=== PATIENT | female | born 1950 | race Caucasian/White ===

== ENCOUNTER 2017-05-14 20:05 | Emergency (ER) | payer MEDICARE, BC ==
[~2017-05-14 20:05] MED LIST: Acetaminophen/HYDROcodone 325-5 MG Tab PO ONE
[2017-05-14 20:10] VITALS: BP 186/72
[2017-05-14] MEDS ORDERED: methylPREDNISolone Sodium Succinate 125 MG/2 ML SDV IVPUSH STA (21:00)
[2017-05-14] MEDS ORDERED: Take Home: Acetaminophen/HYDROcodone 325-5 MG, 2 Tab Pack PO ONE (21:02)
[2017-05-14] MEDS ORDERED: methylPREDNISolone Sodium Succinate 125 MG/2 ML SDV IM STA (21:03)
--- NOTE | 2017-05-14 21:09 | EDM.PDOC ---
ED HPI GENERAL MEDICAL PROBLEM - General Chief Complaint: Lower Extremity Injury/Pain Stated Complaint: left ankle pain Time Seen by Provider: 05/14/17 20:37 Source of Information: Reports: Patient History Limitations: Reports: No Limitations - History of Present Illness INITIAL COMMENTS - FREE TEXT/NARRATIVE: SHARMILA IS A 66 YO FEMALE WHO PRESENTS TO THE ER TONIGHT WITH COMPLAINTS OF LEFT ANKLE PAIN. STATES SHE WAS AT WORK TODAY AND IT STARTED TO BOTHER HER WITH WEIGHT BEARING. ADMITS SHE ATTEMPTED TO MAKE AN APPOINTMENT IN THE CLINIC THIS AFTERNOON BUT THERE WERE NO APPOINTMENTS AVAILABLE. THE PAIN HAS WORSENED THRU OUT THE DAY. DENIES ANY RECENT TRAUMA. NO HISTORY OF GOUT. STATES IF SHE RESTS HER LEG IT DOESN'T BOTHER MUCH UNLESS SHE RESTS THE OUTER PART OF HER ANKLE ON SOMETHING. THE PAIN IS MOSTLY CONFINED TO THE OUTSIDE OF HER ANKLE. Onset: Today Location: Reports: Lower Extremity, Left Quality: Reports: Ache, Throbbing Improves with: Reports: Immobilization Worsens with: Reports: Movement Associated Symptoms: Reports: No Other Symptoms Left Ankle Pain Score (Numeric/FACES): 8 - Related Data Allergies Allergy/AdvReac Type Severity Reaction Status Date / Time diltiazem HCl [From Cardizem] Allergy Rash Verified 05/14/17 20:11 Latex, Natural Rubber Allergy Itching Verified 05/14/17 20:11 simvastatin [From Zocor] Allergy Nausea Verified 05/14/17 20:11 denosumab [From Prolia] AdvReac Joint Pain Verified 05/14/17 20:11 Home Meds: Home Meds Acetaminophen [Tylenol Arthritis Pain] 650 mg PO Q4H PRN 01/21/14 [History] Cholecalciferol (Vitamin D3) [Vitamin D] 1,000 unit PO DAILY 01/21/14 [History] Dabigatran Etexilate Mesylate [Pradaxa] 75 mg PO DAILY 01/21/14 [History] Digoxin [Digoxin] 250 mcg PO DAILY 01/21/14 [History] Furosemide [Lasix] 80 mg PO DAILY 01/21/14 [History] Insulin Detemir [Levemir] 46 units SUBCUT QAM 01/21/14 [History] Lactobacillus Acidophilus [Probiotic] 1 each PO DAILY 01/21/14 [History] Levothyroxine Sodium [Levothyroxine Sodium] 0.05 mcg PO DAILY 01/21/14 [History] Metoprolol Succinate [Toprol XL] 50 mg PO DAILY 01/21/14 [History] Quinapril HCl [Quinapril HCl] 10 mg PO DAILY 01/21/14 [History] SitaGLIPtin [Januvia] 100 mg PO DAILY 01/21/14 [History] Zinc Gluconate [Zinc] 30 mg PO DAILY 01/21/14 [History] metFORMIN [Glucophage] 1,000 mg PO BIDM 01/21/14 [History] atorvaSTATin [Lipitor] 40 mg PO DAILY 02/18/14 [History] Clopidogrel [Plavix] 75 mg PO DAILY 12/13/15 [History] Isosorbide Mononitrate [Imdur] 30 mg PO BID 06/29/16 [History] Lutein 20 mg PO DAILY 06/29/16 [History] Montelukast Sodium 10 mg PO DAILY 06/29/16 [History] Omeprazole 20 mg PO DAILY 06/29/16 [History] Insulin Detemir [Levemir] 50 units SUBCUT QPM 05/14/17 [History] Past Medical History HEENT History: Reports: Impaired Vision Cardiovascular History: Reports: Heart Failure, High Cholesterol, Hypertension, Stents, Other (See Below) Other Cardiovascular History: ATRIAL ENLARGEMENT Respiratory History: Reports: COPD 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 History: Reports: Chronic Renal 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: Musculoskeletal History: Reports: Arthritis, Back Pain, Chronic, Fibromyalgia Endocrine/Metabolic History: Reports: Diabetes, Type II, Hypothyroidism, Vitamin D Deficiency - Past Surgical History HEENT Surgical History: Reports: Other (See Below) Other HEENT Surgeries/Procedures: TRACHEA SURGERY Cardiovascular Surgical History: Reports: Coronary Artery Stent GI Surgical History: Reports: Cholecystectomy, Colonoscopy, EGD Female Surgical History: Reports: Section Musculoskeletal Surgical History: Reports: Other (See Below) Other Musculoskeletal Surgeries/Procedures:: BACK SURGERY Social & Family History - Tobacco Use Smoking Status *Q: Never Smoker Second Hand Smoke Exposure: No - Caffeine Use Caffeine Use: Reports: Soda - Recreational Drug Use Recreational Drug Use: No Review of Systems - Review of Systems Review Of Systems: ROS reveals no pertinent complaints other than HPI. ED EXAM, GENERAL - Physical Exam Exam: See Below Exam Limited By: No Limitations General Appearance: Alert, No Apparent Distress, Other (SITTING IN WHEEL CHAIR) Extremities: Joint Swelling (MILD SWELLING TO LATERAL MALLEOLUS OF LEFT ANKLE. INCREASED DISCOMFORT WITH INVERSION AND DORSIFLEXION OF THE FOOT. NON TENDER IN DISTAL DIGITS. NO STREAKING NOTED. NO OPEN LESIONS. ), Limited Range of Motion, Increased Warmth Skin Exam: Dry, Intact, Increased Warmth, Other (RIDGING OF NAILS). No: Erythema Course - Vital Signs Last Recorded V/S: Last Vital Signs Temp 97.8 F 05/14/17 20:07 Pulse 71 05/14/17 20:07 Resp 16 05/14/17 20:07 BP 186/72 H 05/14/17 20:07 Pulse Ox 97 05/14/17 20:07 - Orders/Labs/Meds Orders: Active Orders 24 hr Category Date Time Status methylPREDNISolone Sod Succ [Solu-MEDROL] Med 05/14/17 21:03 Stat 125 mg IM NOW STA Labs: Laboratory Tests 05/14/17 05/14/17 Range/Units 20:20 20:20 WBC 12.2 H (5.0-10.0) 10^3/uL RBC 3.89 L (4.00-5.50) 10^6/uL Hgb 9.7 L (12.0-16.0) g/dL Hct 30.7 L (37.0-47.0) % MCV 78.9 L (82.0-94.0) fL MCH 24.9 L (27.0-32.0) pg MCHC 31.6 L (33.0-38.0) g/dL RDW Coeff of Reji 15.2 H (11.0-15.0) % Plt Count 224 (150-400) 10^3/uL Neut % (Auto) 75.7 (35-85) % Lymph % (Auto) 14.6 (10-55) % Summers % (Auto) 6.1 (0-16) % Eos % (Auto) 3.1 (0-5) % Baso % (Auto) 0.5 (0-3) % Neut # (Auto) 9.24 H (1.80-7.00) 10^3/uL Lymph # (Auto) 1.79 (1.00-4.80) 10^3/uL Summers # (Auto) 0.75 (0.00-0.80) 10^3/uL Eos # (Auto) 0.38 (0.00-0.45) 10^3/uL Baso # (Auto) 0.06 10^3/uL Uric Acid 6.1 H (2.6-6.0) mg/dL C-Reactive Protein 0.4 (0.2-0.8) mg/dL Meds: Medications Discontinued Medications Generic Name Dose Route Start Last Admin Trade Name Terrell PRN Reason Stop Dose Admin Hydrocodone Bitart/Acetaminophen 2 packet 05/14/17 21:02 Take Home: Acetaminophen/Hydrocod, 2 Tab Pack PO 05/14/17 21:03 ONETIME ONE Methylprednisolone Sodium Succinate 125 mg 05/14/17 21:00 Solu-Medrol IVPUSH 05/14/17 21:01 NOW STA Departure - Departure Time of Disposition: 21:08 Disposition: Home, Self-Care 01 Condition: Good Clinical Impression: Iron deficiency Gout of left ankle Qualifiers: Gout etiology: idiopathic Chronicity: acute Qualified Code(s): M10.072 - Idiopathic gout, left ankle and foot - Discharge Information Instructions: Low-Purine Diet, Gout, [id number], Iron Deficiency Anemia, Adult, [id number] Referrals: Lico Britt MD [Primary Care Provider] - 1 Day (APPOINTMENT TOMORROW WITH DR BRITT R/O IRON DEFICIENCY AND FOLLOW UP) Forms: ED Department Discharge Additional Instructions: 1) NORCO 5/325 - 1 TABLET EVERY 6 HOURS NEEDED FOR PAIN 2) KEEP APPOINTMENT WITH DR. BRITT AT 8:30 TOMORROW MORNING TO DISCUSS IRON DEFICIENCY 3) IF PAIN WORSENS OR ANY OTHER CONCERNS TONIGHT, PLEASE RETURN TO ER 4) HANDOUTS GIVEN ON GOUT, LOW PURINE DIET AND IRON DEFICIENCY - Problem List & Annotations (1) Gout of left ankle SNOMED Code(s): 400534905 Code(s): M10.9 - GOUT, UNSPECIFIED Status: Acute Current Visit: Yes Qualifiers: Gout etiology: idiopathic Chronicity: acute Qualified Code(s): M10.072 - Idiopathic gout, left ankle and foot (2) Iron deficiency SNOMED Code(s): 62690694 Code(s): E61.1 - IRON DEFICIENCY Status: Acute Current Visit: Yes - Problem List Review Problem List Initiated/Reviewed/Updated: Yes - My Orders Last 24 Hours: My Active Orders 05/14/17 21:03 methylPREDNISolone Sod Succ [Solu-MEDROL] 125 mg IM NOW STA - Assessment/Plan Last 24 Hours: My Active Orders 05/14/17 21:03 methylPREDNISolone Sod Succ [Solu-MEDROL] 125 mg IM NOW STA Plan: URIC ACID WAS ELEVATED. D/T BEING ON BLOOD THINNERS WILL TREAT WITH SOLU MEDROL TONIGHT. CONCERNS OF POSSIBLE IRON DEFICIENCY WELL ADN RECOMMEND KEEPING APPOINTMENT WITH DR. BRITT TO DISCUSS.
== END 2017-05-14 21:15 | disposition home or self-care (01) ==
LOC: CC.ED 20:05
DX: M10.072 Idiopathic gout, left ankle and foot (principal); E61.1 Iron deficiency; M19.90 Unspecified osteoarthritis, unspecified site; I13.0 Hypertensive heart and chronic kidney disease with heart failure and stage 1 through stage 4 chronic kidney disease, or unspecified chronic kidney disease; I50.9 Heart failure, unspecified; N18.9 Chronic kidney disease, unspecified; E11.22 Type 2 diabetes mellitus with diabetic chronic kidney disease; E03.9 Hypothyroidism, unspecified; E78.00 Pure hypercholesterolemia, unspecified; J44.9 Chronic obstructive pulmonary disease, unspecified; Z90.49 Acquired absence of other specified parts of digestive tract; Z91.040 Latex allergy status; Z88.8 Allergy status to other drugs, medicaments and biological substances; Z79.899 Other long term (current) drug therapy; Z79.4 Long term (current) use of insulin
CPT/HCPCS: 36415; 84550; 85025; 86140; 96372; 99283; 99284; A9270; J2930

== ENCOUNTER 2018-07-28 15:55 | Emergency (ER) | payer MEDICARE, BC ==
[2018-07-28] MEDS ORDERED: Aspirin 81 MG Tab.Chew PO ONE (16:12)
--- NOTE | 2018-07-28 16:21 | EDM.PDOC ---
ED HPI GENERAL MEDICAL PROBLEM - General Chief Complaint: Chest Pain Stated Complaint: from clinic - heart Time Seen by Provider: 07/28/18 16:05 Source of Information: Reports: Patient History Limitations: Reports: No Limitations - History of Present Illness INITIAL COMMENTS - FREE TEXT/NARRATIVE: Teagan is a 68 year old history who presents to the ED from the clinic. She was scheduled to see Ryne LEZAMA in the clinic. Her complaint in the clinic was chest pain on left side that radiates down her arm. Given her significant cardiac history, was recommended to be evaluated in the ED. She reports for the past week she has had sinus congestion, cough, and shortness of breath. She reports she has had ongoing chest pain to the left side of her chest. Today she notes that it radiates around her shoulder and somewhat down her arm. SHe reports she has been kind of dizzy as well. Denies any headache, confusion, diaphoresis. She does not elaborate much on her symptoms and is very soft spoken. Onset Date: 07/21/18 Duration: Getting Worse Location: Reports: Chest Quality: Reports: Ache, Sharp Associated Symptoms: Reports: Chest Pain, Cough, cough w sputum, Shortness of Breath, Weakness. Denies: Confusion, Diaphoresis, Fever/Chills, Headaches, Loss of Appetite, Malaise, Nausea/Vomiting, Rash, Seizure, Syncope Middle Chest Pain Score (Numeric/FACES): 4 - Related Data Allergies Allergy/AdvReac Type Severity Reaction Status Date / Time diltiazem HCl [From Cardizem] Allergy Rash Verified 07/28/18 16:18 Latex, Natural Rubber Allergy Itching Verified 07/28/18 16:18 simvastatin [From Zocor] Allergy Nausea Verified 07/28/18 16:18 denosumab [From Prolia] AdvReac Joint Pain Verified 07/28/18 16:18 Home Meds: Home Meds Acetaminophen [Tylenol Arthritis Pain] 650 mg PO Q4H PRN 01/21/14 [History] Cholecalciferol (Vitamin D3) [Vitamin D] 1,000 unit PO DAILY 01/21/14 [History] Dabigatran Etexilate Mesylate [Pradaxa] 75 mg PO DAILY 01/21/14 [History] Digoxin 250 mcg PO DAILY 01/21/14 [History] Furosemide [Lasix] 80 mg PO DAILY 01/21/14 [History] Insulin Detemir [Levemir] 46 units SUBCUT QAM 01/21/14 [History] Lactobacillus Acidophilus [Probiotic] 1 each PO DAILY 01/21/14 [History] Levothyroxine Sodium 50 mcg PO DAILY 01/21/14 [History] Metoprolol Succinate [Toprol XL] 50 mg PO DAILY 01/21/14 [History] Quinapril HCl 10 mg PO DAILY 01/21/14 [History] SitaGLIPtin [Januvia] 100 mg PO DAILY 01/21/14 [History] Zinc Gluconate [Zinc] 30 mg PO DAILY 01/21/14 [History] metFORMIN [Glucophage] 1,000 mg PO BID 01/21/14 [History] atorvaSTATin [Lipitor] 40 mg PO DAILY 02/18/14 [History] Clopidogrel [Plavix] 75 mg PO DAILY 12/13/15 [History] Isosorbide Mononitrate [Imdur] 30 mg PO BID 06/29/16 [History] Lutein 20 mg PO DAILY 06/29/16 [History] Montelukast Sodium 10 mg PO DAILY 06/29/16 [History] Omeprazole 20 mg PO DAILY 06/29/16 [History] Insulin Detemir [Levemir] 50 units SUBCUT QPM 05/14/17 [History] Azithromycin [Zithromax] 250 mg PO DAILY #6 tab 07/28/18 [Rx] predniSONE [Prednisone] 20 mg PO DAILY #5 tablet 07/28/18 [Rx] Past Medical History HEENT History: Reports: Impaired Vision Cardiovascular History: Reports: Heart Failure, High Cholesterol, Hypertension, Stents, Other (See Below) Other Cardiovascular History: ATRIAL ENLARGEMENT Respiratory History: Reports: COPD 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 History: Reports: 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: Musculoskeletal History: Reports: Arthritis, Back Pain, Chronic, Fibromyalgia Endocrine/Metabolic History: Reports: Diabetes, Type II, Hypothyroidism, Vitamin D Deficiency - Past Surgical History HEENT Surgical History: Reports: Other (See Below) Other HEENT Surgeries/Procedures: TRACHEA SURGERY Cardiovascular Surgical History: Reports: Coronary Artery Stent GI Surgical History: Reports: Cholecystectomy, Colonoscopy, EGD Female Surgical History: Reports: Section Musculoskeletal Surgical History: Reports: Other (See Below) Other Musculoskeletal Surgeries/Procedures:: BACK SURGERY Social & Family History - Caffeine Use Caffeine Use: Reports: Soda ED ROS GENERAL - Review of Systems Review Of Systems: ROS reveals no pertinent complaints other than HPI. ED EXAM, GENERAL - Physical Exam Exam: See Below Exam Limited By: No Limitations General Appearance: Alert, WD/WN, No Apparent Distress Eye Exam: Bilateral Eye: EOMI, Normal Fundi, Normal Inspection, PERRL Ears: Normal External Exam, Normal Canal, Hearing Grossly Normal, Normal TMs Nose: Normal Inspection, Normal Mucosa, No Blood Throat/Mouth: Normal Inspection, Normal Lips, Normal Teeth, Normal Gums, Normal Oropharynx, Normal Voice, No Airway Compromise Head: Atraumatic, Normocephalic Neck: Normal Inspection, Supple, Non-Tender, Full Range of Motion Respiratory/Chest: No Respiratory Distress, Lungs Clear, Normal Breath Sounds, No Accessory Muscle Use, Chest Non-Tender Cardiovascular: Normal Peripheral Pulses, Regular Rate, Rhythm, No Edema, No Gallop, No JVD, No Rub Peripheral Pulses: 1+: Dorsalis Pedis (L), Dorsalis Pedis (R) GI/Abdominal: Normal Bowel Sounds, Soft, Non-Tender, No Organomegaly, No Distention, No Abnormal Bruit, No Mass Back Exam: Normal Inspection, Full Range of Motion, NT Extremities: Normal Inspection, Normal Range of Motion, Non-Tender, Normal Capillary Refill, No Pedal Edema Neurological: Alert, Oriented, CN II-XII Intact, Normal Cognition, Normal Gait, Normal Reflexes, No Motor/Sensory Deficits Psychiatric: Flat Affect Skin Exam: Warm, Dry, Intact, Normal Color, No Rash Lymphatic: No Adenopathy Course - Vital Signs Last Recorded V/S: Last Vital Signs Temp 97.6 F 07/28/18 16:30 Pulse 63 07/28/18 16:30 Resp 18 07/28/18 16:30 BP 159/79 H 07/28/18 16:30 Pulse Ox 98 07/28/18 16:30 - Orders/Labs/Meds Labs: Laboratory Tests 07/28/18 07/28/18 07/28/18 Range/Units 16:07 16:07 16:07 WBC 9.1 (5.0-10.0) 10^3/uL RBC 3.82 L (4.00-5.50) 10^6/uL Hgb 10.9 L (12.0-16.0) g/dL Hct 33.2 L (37.0-47.0) % MCV 86.9 (82.0-94.0) fL MCH 28.5 (27.0-32.0) pg MCHC 32.8 L (33.0-38.0) g/dL RDW Coeff of Reji 14.6 (11.0-15.0) % Plt Count 208 (150-400) 10^3/uL Neut % (Auto) 75.8 (35-85) % Lymph % (Auto) 16.2 (10-55) % Mcpherson % (Auto) 5.3 (0-16) % Eos % (Auto) 2.3 (0-5) % Baso % (Auto) 0.4 (0-3) % Neut # (Auto) 6.88 (1.80-7.00) 10^3/uL Lymph # (Auto) 1.47 (1.00-4.80) 10^3/uL Mcpherson # (Auto) 0.48 (0.00-0.80) 10^3/uL Eos # (Auto) 0.21 (0.00-0.45) 10^3/uL Baso # (Auto) 0.04 10^3/uL PT 12.7 H (9.7-12.3) SEC INR 1.24 H (0.92-1.18) APTT 40.4 H (23.2-32.3) SEC Sodium 142 (136-145) mEq/L Potassium 3.7 (3.5-5.0) mEq/L Chloride 105 (98-106) mEq/L Carbon Dioxide 29 (21-32) mmol/L BUN 17 (7-18) mg/dL Creatinine 0.8 (0.6-1.0) mg/dL Est Cr Clr Drug Dosing 63.88 mL/min Estimated GFR (MDRD) > 60 (>=60) mL/min Glucose 98 (75-99) mg/dL Calcium 9.6 (8.4-10.1) mg/dL Total Bilirubin 0.6 (0.0-1.0) mg/dL AST 17 (15-37) U/L ALT 28 (12-78) U/L Alkaline Phosphatase 79 (46-116) U/L Lactate Dehydrogenase 158 (100-190) U/L Creatine Kinase 40 (21-215) U/L Troponin I < 0.017 (0.00-0.06) ng/mL Total Protein 6.7 (6.4-8.2) g/dL Albumin 2.9 L (3.4-5.0) g/dL Meds: Medications Discontinued Medications Generic Name Dose Route Start Last Admin Trade Name Devq PRN Reason Stop Dose Admin Aspirin 324 mg 07/28/18 16:12 07/28/18 16:13 Aspirin PO 07/28/18 16:13 324 mg ONETIME ONE Administration - Re-Assessments/Exams Free Text/Narrative Re-Assessment/Exam: 07/28/18 16:47 Discussed, labs, EKG, and CXR results with patient. Labs all stable. CXR negative for acute processes. Departure - Departure Time of Disposition: 16:48 Disposition: Home, Self-Care 01 Condition: Good Clinical Impression: Pleurisy, Bronchitis - Discharge Information *PRESCRIPTION DRUG MONITORING PROGRAM REVIEWED*: Not Applicable *COPY OF PRESCRIPTION DRUG MONITORING REPORT IN PATIENT JORDY: Not Applicable Prescriptions: Azithromycin [Zithromax] 250 mg PO DAILY #6 tab predniSONE [Prednisone] 20 mg PO DAILY #5 tablet Instructions: Cough, Adult, [id number], Pleurisy Referrals: PCP,Unknown [Primary Care Provider] - Forms: ED Department Discharge Additional Instructions: Azithromycin daily x 5 days Prednisone daily x 5 days Meds can be picked up at [facility] Continue Robitussin as needed for cough Rest and push fluids Follow up with PCP in clinic if symptoms worsen or do not improve Return to ED for any emergent needs
[2018-07-28 16:26] LABS: CHLORIDE,CL 105 mEq/L (98-106); SODIUM,NA 142 mEq/L (136-145)
[2018-07-28 16:37] VITALS: BP 159/79
== END 2018-07-28 16:59 | disposition home or self-care (01) ==
LOC: CC.ED 15:55
DX: J40 Bronchitis, not specified as acute or chronic (principal); R09.1 Pleurisy; I13.0 Hypertensive heart and chronic kidney disease with heart failure and stage 1 through stage 4 chronic kidney disease, or unspecified chronic kidney disease; I50.9 Heart failure, unspecified; N18.9 Chronic kidney disease, unspecified; E11.22 Type 2 diabetes mellitus with diabetic chronic kidney disease; Z91.040 Latex allergy status; Z79.4 Long term (current) use of insulin; Z79.84 Long term (current) use of oral hypoglycemic drugs
CPT/HCPCS: 36415; 71046; 80053; 82550; 83615; 84484; 85025; 85610; 85730; 93005; 99285; A9270; 93010; 99284

== ENCOUNTER 2019-05-09 12:38 | Inpatient (IN) | payer MEDICARE, BC ==
[2019-05-09 13:19] LABS: CHLORIDE,CL 104 mEq/L (98-106); SODIUM,NA 142 mEq/L (136-145)
[2019-05-09] MEDS ORDERED: Sodium Chloride 0.9% 10 ML Syringe IV SCH (14:30)
[2019-05-09] MEDS ORDERED: Temazepam 15 MG Cap PO PRN (17:38)
[2019-05-09] MEDS ORDERED: Docusate Sodium 100 MG Cap PO PRN (17:38)
[2019-05-09] MEDS ORDERED: Morphine 2 MG/ML Syringe IVPUSH PRN (17:38)
[2019-05-09] MEDS ORDERED: Ondansetron 4 MG/2 ML SDV IV PRN (17:38)
[2019-05-09] MEDS ORDERED: Furosemide 40 MG/4 ML VIAL IVPUSH ONE (17:38)
[2019-05-09] MEDS: Enoxaparin 40 MG/0.4 ML Syringe SUBCUT SCH (18:26)
[2019-05-09] MEDS: Albuterol/Ipratropium 3.0-0.5 MG/3 ML Neb Soln NEB SCH ×2 (18:26→19:39)
[2019-05-09] MEDS: Levofloxacin/Dextrose 5%-Water 500 MG in Premix Bag 1 BAG IV SCH (18:27)
[2019-05-09] MEDS: metFORMIN 500 MG Tab PO SCH (19:23)
[2019-05-09] MEDS: Insulin Glargine,Human Rec. Analog 100 Units/ML 3 ML Pen SUBCUT SCH (19:24)
[2019-05-09] MEDS: Isosorbide Mononitrate 30 MG Tab.ER PO SCH (19:24)
[2019-05-09] MEDS: DABIGATRAN ETEXILATE MESYLATE 150 MG PO SCH (20:00)
[2019-05-09] MEDS ORDERED: DABIGATRAN ETEXILATE MESYLATE 150 MG PO SCH (20:00)
[2019-05-10] MEDS: Levothyroxine 50 MCG Tab PO SCH (06:55)
[2019-05-10] MEDS: Pantoprazole 40 MG Tab.CR PO SCH (06:55)
[2019-05-10] MEDS: DABIGATRAN ETEXILATE MESYLATE 150 MG PO SCH ×2 (07:22→19:42)
[2019-05-10 07:23] LABS: CHLORIDE,CL 106 mEq/L (98-106); SODIUM,NA 143 mEq/L (136-145)
[2019-05-10] MEDS: Albuterol/Ipratropium 3.0-0.5 MG/3 ML Neb Soln NEB SCH ×3 (07:23→19:41)
[2019-05-10] MEDS: Metoprolol Succinate 100 MG Tab.ER PO SCH (07:23)
[2019-05-10] MEDS: Folic Acid 1 MG Tab PO SCH (07:24)
[2019-05-10] MEDS: Clopidogrel 75 MG Tab PO SCH (07:24)
[2019-05-10] MEDS: metFORMIN 500 MG Tab PO SCH ×2 (07:24→17:07)
[2019-05-10] MEDS: Cholecalciferol (Vitamin D3) 25 MCG Tab PO SCH (07:24)
[2019-05-10] MEDS: Isosorbide Mononitrate 30 MG Tab.ER PO SCH ×2 (07:24→19:42)
[2019-05-10] MEDS: Furosemide 40 MG Tab PO SCH (07:25)
[2019-05-10] MEDS: Lisinopril 5 MG Tab PO SCH (07:25)
[2019-05-10] MEDS: Montelukast 10 MG Tab PO SCH (07:25)
[2019-05-10] MEDS: atorvaSTATin 20 MG Tab PO SCH (07:26)
[2019-05-10] MEDS: SITAGLIPTIN 100 MG PO SCH (07:26)
[2019-05-10] MEDS ORDERED: DABIGATRAN ETEXILATE MESYLATE 150 MG PO SCH (08:00)
[2019-05-10] MEDS ORDERED: Non-Formulary Medication 1 Each (Lutein [Lutein] 20 MG) PO SCH (08:00)
[2019-05-10] MEDS ORDERED: ZINC GLUCONATE 30 MG PO SCH (08:00)
[2019-05-10] MEDS ORDERED: INSULIN DETEMIR 46 UNIT SUBCUT SCH (08:00)
[2019-05-10] MEDS: Insulin Glargine,Human Rec. Analog 100 Units/ML 3 ML Pen SUBCUT SCH ×2 (08:37→19:42)
--- NOTE | 2019-05-10 09:27 | PCM.PN ---
- General Info Date of Service: 05/10/19 Functional Status: Reports: Tolerating Diet. Denies: New Symptoms - Review of Systems General: Reports: Weakness (generally weak), Fatigue, Malaise HEENT: Reports: Post Nasal Drip, Sinus Congestion, Rhinitis Pulmonary: Reports: Shortness of Breath, Pleuritic Chest Pain, Cough, Sputum Cardiovascular: Reports: Chest Pain. Denies: Lightheadedness Gastrointestinal: Denies: Abdominal Pain, Diarrhea, Nausea, Vomiting 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: Reports: No Symptoms Musculoskeletal: Reports: No Symptoms Skin: Reports: Pallor Neurological: Reports: No Symptoms. Denies: Confusion, Dizziness, Headache, Seizure, Syncope, Weakness, Change in Speech, Gait Disturbance Psychiatric: Reports: No Symptoms - Patient Data Vitals - Most Recent: Last Vital Signs Temp 97.3 F 05/10/19 08:00 Pulse 61 05/10/19 08:00 Resp 16 05/10/19 08:00 BP 152/59 H 05/10/19 08:00 Pulse Ox 96 05/10/19 08:00 Weight - Most Recent: 181 lb Lab Results Last 24 Hours: Laboratory Results - last 24 hr 05/09/19 05/09/19 05/09/19 Range/Units 12:55 12:55 12:55 WBC 9.4 (5.0-10.0) 10^3/uL RBC 3.68 L (4.00-5.50) 10^6/uL Hgb 9.6 L (12.0-16.0) g/dL Hct 30.9 L (37.0-47.0) % MCV 84.0 (82.0-94.0) fL MCH 26.1 L (27.0-32.0) pg MCHC 31.1 L (33.0-38.0) g/dL RDW Coeff of Reji 15.7 H (11.0-15.0) % Plt Count 195 (150-400) 10^3/uL Neut % (Auto) 78.5 (35-85) % Lymph % (Auto) 13.6 (10-55) % Kimball % (Auto) 5.0 (0-16) % Eos % (Auto) 2.5 (0-5) % Baso % (Auto) 0.4 (0-3) % Neut # (Auto) 7.36 H (1.80-7.00) 10^3/uL Lymph # (Auto) 1.27 (1.00-4.80) 10^3/uL Kimball # (Auto) 0.47 (0.00-0.80) 10^3/uL Eos # (Auto) 0.23 (0.00-0.45) 10^3/uL Baso # (Auto) 0.04 10^3/uL PT 11.8 (9.7-12.3) SEC INR 1.16 (0.92-1.18) D-Dimer, Quantitative 0.23 (0.00-0.50) Sodium 142 (136-145) mEq/L Potassium 3.9 (3.5-5.0) mEq/L Chloride 104 (98-106) mEq/L Carbon Dioxide 30 (21-32) mmol/L BUN 10 (7-18) mg/dL Creatinine 0.6 (0.6-1.0) mg/dL Est Cr Clr Drug Dosing TNP Estimated GFR (MDRD) > 60 (>=60) mL/min Glucose 135 H D (75-99) mg/dL POC Glucose (75-105) mg/dl Calcium 10.0 (8.4-10.1) mg/dL Total Bilirubin 2.0 H (0.0-1.0) mg/dL AST 13 L (15-37) U/L ALT 10 L (12-78) U/L Alkaline Phosphatase 79 (46-116) U/L Creatine Kinase 27 (21-215) U/L Troponin I < 0.017 (0.00-0.06) ng/mL C-Reactive Protein 5.2 H (0.2-0.8) mg/dL NT-Pro-B Natriuret Pep 2703 H (0-1000) pg/mL Total Protein 6.8 (6.4-8.2) g/dL Albumin 3.3 L (3.4-5.0) g/dL Lipase 75 (73-393) U/L Urine Color (YELLOW) Urine Appearance (CLEAR) Urine pH (4.5-8.0) Ur Specific [place] (1.003-1.020) Urine Protein (NEGATIVE) mg/dL Urine Glucose (UA) (NEGATIVE) mg/dL Urine Ketones (NEGATIVE) mg/dL Urine Occult Blood (NEGATIVE) Urine Nitrite (NEGATIVE) Urine Bilirubin (NEGATIVE) Urine Urobilinogen (0.2-1.0) EU/dL Ur Leukocyte Esterase (NEGATIVE) Urine RBC (0-5) /HPF Urine WBC (0-5) /HPF Ur Epithelial Cells (NOT SEEN) /HPF 05/09/19 05/09/19 05/09/19 Range/Units 12:55 18:25 20:00 WBC (5.0-10.0) 10^3/uL RBC (4.00-5.50) 10^6/uL Hgb (12.0-16.0) g/dL Hct (37.0-47.0) % MCV (82.0-94.0) fL MCH (27.0-32.0) pg MCHC (33.0-38.0) g/dL RDW Coeff of Reji (11.0-15.0) % Plt Count (150-400) 10^3/uL Neut % (Auto) (35-85) % Lymph % (Auto) (10-55) % Kimball % (Auto) (0-16) % Eos % (Auto) (0-5) % Baso % (Auto) (0-3) % Neut # (Auto) (1.80-7.00) 10^3/uL Lymph # (Auto) (1.00-4.80) 10^3/uL Kimball # (Auto) (0.00-0.80) 10^3/uL Eos # (Auto) (0.00-0.45) 10^3/uL Baso # (Auto) 10^3/uL PT (9.7-12.3) SEC INR (0.92-1.18) D-Dimer, Quantitative (0.00-0.50) Sodium (136-145) mEq/L Potassium (3.5-5.0) mEq/L Chloride (98-106) mEq/L Carbon Dioxide (21-32) mmol/L BUN (7-18) mg/dL Creatinine (0.6-1.0) mg/dL Est Cr Clr Drug Dosing Estimated GFR (MDRD) (>=60) mL/min Glucose (75-99) mg/dL POC Glucose 207 H (75-105) mg/dl Calcium (8.4-10.1) mg/dL Total Bilirubin (0.0-1.0) mg/dL AST (15-37) U/L ALT (12-78) U/L Alkaline Phosphatase (46-116) U/L Creatine Kinase (21-215) U/L Troponin I < 0.017 (0.00-0.06) ng/mL C-Reactive Protein (0.2-0.8) mg/dL NT-Pro-B Natriuret Pep (0-1000) pg/mL Total Protein (6.4-8.2) g/dL Albumin (3.4-5.0) g/dL Lipase (73-393) U/L Urine Color Yellow (YELLOW) Urine Appearance Clear (CLEAR) Urine pH 7.0 (4.5-8.0) Ur Specific [place] 1.010 (1.003-1.020) Urine Protein Negative (NEGATIVE) mg/dL Urine Glucose (UA) Negative (NEGATIVE) mg/dL Urine Ketones Negative (NEGATIVE) mg/dL Urine Occult Blood Negative (NEGATIVE) Urine Nitrite Negative (NEGATIVE) Urine Bilirubin Negative (NEGATIVE) Urine Urobilinogen 0.2 (0.2-1.0) EU/dL Ur Leukocyte Esterase Trace H (NEGATIVE) Urine RBC Not seen (0-5) /HPF Urine WBC 0-5 (0-5) /HPF Ur Epithelial Cells Occasional H (NOT SEEN) /HPF 05/09/19 05/10/19 05/10/19 Range/Units 20:47 07:00 07:00 WBC 6.0 (5.0-10.0) 10^3/uL RBC 3.49 L (4.00-5.50) 10^6/uL Hgb 9.0 L (12.0-16.0) g/dL Hct 29.4 L (37.0-47.0) % MCV 84.2 (82.0-94.0) fL MCH 25.8 L (27.0-32.0) pg MCHC 30.6 L (33.0-38.0) g/dL RDW Coeff of Reji 15.7 H (11.0-15.0) % Plt Count 176 (150-400) 10^3/uL Neut % (Auto) 71.0 (35-85) % Lymph % (Auto) 18.7 (10-55) % Kimball % (Auto) 5.2 (0-16) % Eos % (Auto) 4.4 (0-5) % Baso % (Auto) 0.7 (0-3) % Neut # (Auto) 4.23 (1.80-7.00) 10^3/uL Lymph # (Auto) 1.11 (1.00-4.80) 10^3/uL Kimball # (Auto) 0.31 (0.00-0.80) 10^3/uL Eos # (Auto) 0.26 (0.00-0.45) 10^3/uL Baso # (Auto) 0.04 10^3/uL PT (9.7-12.3) SEC INR (0.92-1.18) D-Dimer, Quantitative (0.00-0.50) Sodium 143 (136-145) mEq/L Potassium 3.7 (3.5-5.0) mEq/L Chloride 106 (98-106) mEq/L Carbon Dioxide 28 (21-32) mmol/L BUN 9 (7-18) mg/dL Creatinine 0.6 (0.6-1.0) mg/dL Est Cr Clr Drug Dosing 85.18 Estimated GFR (MDRD) > 60 (>=60) mL/min Glucose 139 H (75-99) mg/dL POC Glucose 244 H (75-105) mg/dl Calcium 9.4 (8.4-10.1) mg/dL Total Bilirubin (0.0-1.0) mg/dL AST (15-37) U/L ALT (12-78) U/L Alkaline Phosphatase (46-116) U/L Creatine Kinase (21-215) U/L Troponin I (0.00-0.06) ng/mL C-Reactive Protein 5.4 H (0.2-0.8) mg/dL NT-Pro-B Natriuret Pep (0-1000) pg/mL Total Protein (6.4-8.2) g/dL Albumin (3.4-5.0) g/dL Lipase (73-393) U/L Urine Color (YELLOW) Urine Appearance (CLEAR) Urine pH (4.5-8.0) Ur Specific [place] (1.003-1.020) Urine Protein (NEGATIVE) mg/dL Urine Glucose (UA) (NEGATIVE) mg/dL Urine Ketones (NEGATIVE) mg/dL Urine Occult Blood (NEGATIVE) Urine Nitrite (NEGATIVE) Urine Bilirubin (NEGATIVE) Urine Urobilinogen (0.2-1.0) EU/dL Ur Leukocyte Esterase (NEGATIVE) Urine RBC (0-5) /HPF Urine WBC (0-5) /HPF Ur Epithelial Cells (NOT SEEN) /HPF 05/10/19 05/10/19 Range/Units 07:15 07:15 WBC (5.0-10.0) 10^3/uL RBC (4.00-5.50) 10^6/uL Hgb (12.0-16.0) g/dL Hct (37.0-47.0) % MCV (82.0-94.0) fL MCH (27.0-32.0) pg MCHC (33.0-38.0) g/dL RDW Coeff of Reji (11.0-15.0) % Plt Count (150-400) 10^3/uL Neut % (Auto) (35-85) % Lymph % (Auto) (10-55) % Kimball % (Auto) (0-16) % Eos % (Auto) (0-5) % Baso % (Auto) (0-3) % Neut # (Auto) (1.80-7.00) 10^3/uL Lymph # (Auto) (1.00-4.80) 10^3/uL Kimball # (Auto) (0.00-0.80) 10^3/uL Eos # (Auto) (0.00-0.45) 10^3/uL Baso # (Auto) 10^3/uL PT (9.7-12.3) SEC INR (0.92-1.18) D-Dimer, Quantitative (0.00-0.50) Sodium (136-145) mEq/L Potassium (3.5-5.0) mEq/L Chloride (98-106) mEq/L Carbon Dioxide (21-32) mmol/L BUN (7-18) mg/dL Creatinine (0.6-1.0) mg/dL Est Cr Clr Drug Dosing Estimated GFR (MDRD) (>=60) mL/min Glucose (75-99) mg/dL POC Glucose 135 H (75-105) mg/dl Calcium (8.4-10.1) mg/dL Total Bilirubin (0.0-1.0) mg/dL AST (15-37) U/L ALT (12-78) U/L Alkaline Phosphatase (46-116) U/L Creatine Kinase (21-215) U/L Troponin I (0.00-0.06) ng/mL C-Reactive Protein (0.2-0.8) mg/dL NT-Pro-B Natriuret Pep 2015 H (0-1000) pg/mL Total Protein (6.4-8.2) g/dL Albumin (3.4-5.0) g/dL Lipase (73-393) U/L Urine Color (YELLOW) Urine Appearance (CLEAR) Urine pH (4.5-8.0) Ur Specific [place] (1.003-1.020) Urine Protein (NEGATIVE) mg/dL Urine Glucose (UA) (NEGATIVE) mg/dL Urine Ketones (NEGATIVE) mg/dL Urine Occult Blood (NEGATIVE) Urine Nitrite (NEGATIVE) Urine Bilirubin (NEGATIVE) Urine Urobilinogen (0.2-1.0) EU/dL Ur Leukocyte Esterase (NEGATIVE) Urine RBC (0-5) /HPF Urine WBC (0-5) /HPF Ur Epithelial Cells (NOT SEEN) /HPF Med Orders - Current: Current Medications Albuterol/Ipratropium (Duoneb 3.0-0.5 Mg/3 Ml) 3 ml NEB TIDRT [facility] Last Admin: 05/10/19 07:23 Dose: 3 ml Atorvastatin Calcium (Lipitor) 40 mg PO DAILY [facility] Last Admin: 05/10/19 07:26 Dose: 40 mg Cholecalciferol (Vitamin D3) 25 mcg PO DAILY [facility] Last Admin: 05/10/19 07:24 Dose: 25 mcg Clopidogrel Bisulfate (Plavix) 75 mg PO DAILY [facility] Last Admin: 05/10/19 07:24 Dose: 75 mg Digoxin (Lanoxin) 125 mcg PO DAILY@1200 [facility] Docusate Sodium (Colace) 100 mg PO BID PRN PRN Reason: Constipation Enoxaparin Sodium (Lovenox) 40 mg SUBCUT Q24H [facility] Last Admin: 05/09/19 18:26 Dose: 40 mg Folic Acid (Folic Acid) 1 mg PO DAILY [facility] Last Admin: 05/10/19 07:24 Dose: 1 mg Furosemide (Lasix) 40 mg PO DAILY [facility] Last Admin: 05/10/19 07:25 Dose: 40 mg Levofloxacin/Dextrose 500 mg/ (Premix) 100 mls @ 100 mls/hr IV Q24H [facility] Last Admin: 05/09/19 18:27 Dose: 100 mls/hr Insulin Glargine (Lantus Solostar) 50 units SUBCUT QPM [facility] Last Admin: 05/09/19 19:24 Dose: 50 units Insulin Glargine (Lantus Solostar) 46 units SUBCUT QAM [facility] Last Admin: 05/10/19 08:37 Dose: 46 units Isosorbide Mononitrate (Imdur) 30 mg PO BID [facility] Last Admin: 05/10/19 07:24 Dose: 30 mg Levothyroxine Sodium (Synthroid) 50 mcg PO ACBREAKFAST [facility] Last Admin: 05/10/19 06:55 Dose: 50 mcg Lisinopril (Prinivil) 5 mg PO DAILY [facility] Last Admin: 05/10/19 07:25 Dose: 5 mg Metformin HCl (Glucophage) 1,000 mg PO BIDMEALS [facility] Last Admin: 05/10/19 07:24 Dose: 1,000 mg Metoprolol Succinate (Toprol Xl) 100 mg PO DAILY [facility] Last Admin: 05/10/19 07:23 Dose: 100 mg Montelukast Sodium (Singulair) 10 mg PO DAILY [facility] Last Admin: 05/10/19 07:25 Dose: 10 mg Morphine Sulfate (Morphine) 2 mg IVPUSH Q2H PRN PRN Reason: Pain (severe 7-10) Sitagliptin (Januvia ) 100 Mg Tab Own Med 0 mg PO DAILY [facility] Last Admin: 05/10/19 07:26 Dose: 100 mg Dabigatran Etexilate Mesylate (Pradaxa) 150 Mg Tab Own Med 0 mg PO BID [facility] Last Admin: 05/10/19 07:22 Dose: 150 mg Ondansetron HCl (Zofran) 4 mg IV Q6H PRN PRN Reason: Nausea/Vomiting Pantoprazole Sodium (Protonix) 40 mg PO ACBRK [facility] Last Admin: 05/10/19 06:55 Dose: 40 mg Temazepam (Restoril) 15 mg PO BEDTIME PRN PRN Reason: Sleep Discontinued Medications Furosemide (Lasix) 40 mg IVPUSH ONETIME ONE Stop: 05/09/19 17:39 Last Admin: 05/09/19 18:27 Dose: 40 mg Dabigatran Etexilate Mesylate (Pradaxa) 150 Mg Capsule Own Med 0 mg PO DAILY [facility] Non-Formulary Medication (Lutein [Lutein]) 20 mg PO DAILY [facility] Non-Formulary Medication (Zinc Gluconate [Zinc]) 30 mg PO DAILY [facility] Non-Formulary Medication (Dabigatran Etexilate Mesylate [Pradaxa]) 150 mg PO BID [facility] Sodium Chloride (Saline Flush) 10 ml IV ASDIRECTED [facility] - Exam General: Alert, Oriented, Cooperative, No Acute Distress HEENT: Pupils Equal, Pupils Reactive, Mucous Membr. Moist/[place], Other (non pallor conjucta. ) Neck: Supple Lungs: Clear to Auscultation, Normal Respiratory Effort Cardiovascular: Regular Rate, Regular Rhythm, Other (pacemaker) GI/Abdominal Exam: Normal Bowel Sounds, Soft, Non-Tender, No Organomegaly, No Distention, No Abnormal Bruit, No Mass, Pelvis Stable (Female) Exam: Deferred Back Exam: Normal Inspection, Full Range of Motion. No: CVA Tenderness (L), CVA Tenderness (R) Extremities: Normal Inspection, Normal Range of Motion, Non-Tender, Normal Capillary Refill, Pedal Edema (+1 BLE) Peripheral Pulses: 2+: Carotid (L), Carotid (R), Radial (L), Radial (R), Posterior Tibial (L), Posterior Tibial (R), Dorsalis Pedis (L), Dorsalis Pedis ( R) Skin: Warm, Dry, Intact Neurological: No New Focal Deficit Psy/Mental Status: Alert, Depressed, Other (flat affect, soft spoken. Patient family reports patient usually has flat affect, and always complains about health or always something wrong with health complaint per family. ) - Problem List Review Problem List Initiated/Reviewed/Updated: Yes - My Orders Last 24 Hours: My Active Orders 05/09/19 12:55 CULTURE BLOOD [BC] Stat 05/09/19 12:58 CULTURE BLOOD [BC] Stat 05/09/19 16:17 Resuscitation Status Routine 05/09/19 17:38 Patient Status [ADT] Routine Antiembolic Devices [RC] 1000,2200 Cardiac Monitoring [RC] 0800,2000 Notify Provider Vital Signs [RC] .PRN Oxygen Therapy [RC] .PRN RT Aerosol Therapy [RC] 0800,1200,1600,2000 Up With Assistance [RC] .PRN Up to Chair [RC] .PRN Vital Signs [RC] 0000,0400,1200,1600,2000 CULTURE SPUTUM + SMEAR [] Stat Docusate Sodium [Colace] 100 mg PO BID PRN Morphine 2 mg IVPUSH Q2H PRN Ondansetron [Zofran] 4 mg IV Q6H PRN Temazepam [Restoril] 15 mg PO BEDTIME PRN Antiembolic Hose [OM.PC] Per Unit Routine 05/09/19 18:00 Enoxaparin [Lovenox] 40 mg SUBCUT Q24H Levofloxacin/Dextrose 5%-Water [Levaquin in D5W 500 MG/100 ML] 500 mg Premix Bag 1 bag IV Q24H 05/09/19 18:04 Blood Glucose Check, Bedside [] 0730,1130,1700,2100 05/09/19 18:30 metFORMIN [Glucophage] 1,000 mg PO BIDMEALS 05/09/19 20:00 Albuterol/Ipratropium [DuoNeb 3.0-0.5 MG/3 ML] 3 ml NEB TIDRT Dabigatran Etexilate Mesylate [Pradaxa] 0 mg PO BID Insulin Glarg,Human.Rec.Analog [LantUS Solostar] 50 units SUBCUT QPM Isosorbide Mononitrate [Imdur] 30 mg PO BID 05/09/19 Dinner Heart Healthy Diet [DIET] 05/10/19 07:00 Levothyroxine [Synthroid] 50 mcg PO ACBREAKFAST Pantoprazole [ProTONIX] 40 mg PO ACBRK 05/10/19 08:00 Cholecalciferol (Vitamin D3) [Vitamin D3] 25 mcg PO DAILY Clopidogrel [Plavix] 75 mg PO DAILY Folic Acid 1 mg PO DAILY Furosemide [Lasix] 40 mg PO DAILY Insulin Glarg,Human.Rec.Analog [LantUS Solostar] 46 units SUBCUT QAM Lisinopril [Prinivil] 5 mg PO DAILY Metoprolol Succinate [Toprol XL] 100 mg PO DAILY Montelukast [Singulair] 10 mg PO DAILY SitaGLIPtin [Januvia] 0 mg PO DAILY atorvaSTATin [Lipitor] 40 mg PO DAILY 05/10/19 12:00 Digoxin [Lanoxin] 125 mcg PO DAILY@1200 05/11/19 05:00 BASIC METABOLIC PANEL,BMP [CHEM] DAILY C-REACTIVE PROTEIN [CHEM] DAILY CBC WITH AUTO DIFF [HEME] DAILY PRO B-TYPE NATRIUR PEPT,BNPPRO [CHEM] DAILY 05/12/19 05:00 BASIC METABOLIC PANEL,BMP [CHEM] DAILY C-REACTIVE PROTEIN [CHEM] DAILY CBC WITH AUTO DIFF [HEME] DAILY - Plan Plan:: This patient is a 68 year old female that was admitted to the hospital yesterday from the clinic. She was admitted for bilateral lower lobe pneumonia. The patient family reports the patient reports the patient usually complains of about health complaints and she is acting how she normally acts. They reports she is maybe a little more pale than normal, but otherwise acting how she normally acts and feels per family. Family does report the patient yesterday called into work which prompted to think she wasnt feeling well. Yesterday in the clinic the patient said she thinks she just has a sinus infection. The patient this morning reports that she has on changes in the way she feels. I asked her, "so you do not feel any better at all since yesterday morning when I saw you." She then responded, "well, maybe a little better." She reports she is not as short of breath. Also, when I enter the room, she is laying at about 15 degrees in her bed, nearly flat, whereas, on exam yesterday she could not do that very long at all without complaining of being short of breath. Patient reports that she feels generally weak, malaise, and fatigued. Patient reports she continues to have shortness of breath, cough, and chest heaviness in her lungs. Yesterday her labs were wbc 9.0, hgb 9.6, CRP 5.2, BNP 2703. Today, wbc 6.4, hgb 9.0, CRP 5.4, BNP 2015. I have reviewed the patient hgb. She has in the past had hx of anemia. The patient denies any history of vomiting blood, bleeding from rectum, blood in bowels, or any known loss of blood. Her HR is paced. Will continue to monitor hgb. Will recheck another hgb later today to see if any more drop. She is not currently getting fluids. Will evaluate the repeat hgb lab later today. At this time, will continue plan of care with abx, breathing tx, and admit. Her EKG from yesterday was paced.
[2019-05-10] MEDS: Digoxin 125 MCG Tab PO SCH (12:00)
[2019-05-10] MEDS: Levofloxacin/Dextrose 5%-Water 500 MG in Premix Bag 1 BAG IV SCH (17:07)
[2019-05-10] MEDS: Enoxaparin 40 MG/0.4 ML Syringe SUBCUT SCH (17:07)
[2019-05-11] MEDS: Levothyroxine 50 MCG Tab PO SCH (06:05)
[2019-05-11] MEDS: Pantoprazole 40 MG Tab.CR PO SCH (06:05)
[2019-05-11] MEDS: SITAGLIPTIN 100 MG PO SCH (07:27)
[2019-05-11] MEDS: DABIGATRAN ETEXILATE MESYLATE 150 MG PO SCH ×2 (07:28→20:08)
[2019-05-11] MEDS: Folic Acid 1 MG Tab PO SCH (07:30)
[2019-05-11] MEDS: metFORMIN 500 MG Tab PO SCH ×2 (07:30→17:16)
[2019-05-11] MEDS: Isosorbide Mononitrate 30 MG Tab.ER PO SCH ×2 (07:31→20:09)
[2019-05-11] MEDS: atorvaSTATin 20 MG Tab PO SCH (07:31)
[2019-05-11] MEDS: Clopidogrel 75 MG Tab PO SCH (07:31)
[2019-05-11] MEDS: Furosemide 40 MG Tab PO SCH (07:31)
[2019-05-11] MEDS: Montelukast 10 MG Tab PO SCH (07:32)
[2019-05-11] MEDS: Lisinopril 5 MG Tab PO SCH (07:32)
[2019-05-11] MEDS: Metoprolol Succinate 100 MG Tab.ER PO SCH (07:32)
[2019-05-11] MEDS: Albuterol/Ipratropium 3.0-0.5 MG/3 ML Neb Soln NEB SCH ×3 (07:33→20:09)
[2019-05-11] MEDS: Cholecalciferol (Vitamin D3) 25 MCG Tab PO SCH (07:33)
[2019-05-11 07:45] LABS: CHLORIDE,CL 105 mEq/L (98-106); SODIUM,NA 142 mEq/L (136-145)
[2019-05-11] MEDS: Insulin Glargine,Human Rec. Analog 100 Units/ML 3 ML Pen SUBCUT SCH ×2 (08:27→20:10)
--- NOTE | 2019-05-11 09:03 | PCM.PN ---
- General Info Date of Service: 05/11/19 Admission Dx/Problem (Free Text): Bilateral lower lobe pneumonia Functional Status: Reports: Pain Controlled, Tolerating Diet. Denies: Ambulating - Review of Systems General: Reports: Weakness, Fatigue, Malaise. Denies: Fever HEENT: Reports: Sinus Congestion, Rhinitis Pulmonary: Reports: Shortness of Breath, Cough. Denies: Sputum Cardiovascular: Denies: Chest Pain, Edema, Lightheadedness Gastrointestinal: Reports: Decreased Appetite. Denies: Abdominal Pain, Nausea, Vomiting 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: Reports: No Symptoms Musculoskeletal: Reports: No Symptoms Skin: Reports: No Symptoms Neurological: Reports: No Symptoms - Patient Data Vitals - Most Recent: Last Vital Signs Temp 96.5 F 05/11/19 04:00 Pulse 63 05/11/19 07:32 Resp 18 05/11/19 04:00 BP 151/58 H 05/11/19 07:32 Pulse Ox 97 05/11/19 04:00 Weight - Most Recent: 181 lb Lab Results Last 24 Hours: Laboratory Results - last 24 hr 05/10/19 05/10/19 05/10/19 Range/Units 11:29 15:55 17:05 WBC (5.0-10.0) 10^3/uL RBC (4.00-5.50) 10^6/uL Hgb 9.2 L (12.0-16.0) g/dL Hct 30.0 L (37.0-47.0) % MCV (82.0-94.0) fL MCH (27.0-32.0) pg MCHC (33.0-38.0) g/dL RDW Coeff of Reji (11.0-15.0) % Plt Count (150-400) 10^3/uL Neut % (Auto) (35-85) % Lymph % (Auto) (10-55) % [place] % (Auto) (0-16) % Eos % (Auto) (0-5) % Baso % (Auto) (0-3) % Neut # (Auto) (1.80-7.00) 10^3/uL Lymph # (Auto) (1.00-4.80) 10^3/uL [place] # (Auto) (0.00-0.80) 10^3/uL Eos # (Auto) (0.00-0.45) 10^3/uL Baso # (Auto) 10^3/uL Sodium (136-145) mEq/L Potassium (3.5-5.0) mEq/L Chloride (98-106) mEq/L Carbon Dioxide (21-32) mmol/L BUN (7-18) mg/dL Creatinine (0.6-1.0) mg/dL Est Cr Clr Drug Dosing mL/min Estimated GFR (MDRD) (>=60) mL/min Glucose (75-99) mg/dL POC Glucose 169 H 205 H (75-105) mg/dl Calcium (8.4-10.1) mg/dL C-Reactive Protein (0.2-0.8) mg/dL NT-Pro-B Natriuret Pep (0-1000) pg/mL 05/10/19 05/11/19 05/11/19 Range/Units 21:07 06:50 06:50 WBC 5.8 (5.0-10.0) 10^3/uL RBC 3.54 L (4.00-5.50) 10^6/uL Hgb 9.2 L (12.0-16.0) g/dL Hct 29.8 L (37.0-47.0) % MCV 84.2 (82.0-94.0) fL MCH 26.0 L (27.0-32.0) pg MCHC 30.9 L (33.0-38.0) g/dL RDW Coeff of Reji 15.6 H (11.0-15.0) % Plt Count 209 (150-400) 10^3/uL Neut % (Auto) 71.6 (35-85) % Lymph % (Auto) 16.3 (10-55) % [place] % (Auto) 6.4 (0-16) % Eos % (Auto) 5.4 H (0-5) % Baso % (Auto) 0.3 (0-3) % Neut # (Auto) 4.13 (1.80-7.00) 10^3/uL Lymph # (Auto) 0.94 L (1.00-4.80) 10^3/uL [place] # (Auto) 0.37 (0.00-0.80) 10^3/uL Eos # (Auto) 0.31 (0.00-0.45) 10^3/uL Baso # (Auto) 0.02 10^3/uL Sodium 142 (136-145) mEq/L Potassium 3.5 (3.5-5.0) mEq/L Chloride 105 (98-106) mEq/L Carbon Dioxide 29 (21-32) mmol/L BUN 8 (7-18) mg/dL Creatinine 0.6 (0.6-1.0) mg/dL Est Cr Clr Drug Dosing 85.18 mL/min Estimated GFR (MDRD) > 60 (>=60) mL/min Glucose 80 D (75-99) mg/dL POC Glucose 139 H (75-105) mg/dl Calcium 9.7 (8.4-10.1) mg/dL C-Reactive Protein 2.6 H (0.2-0.8) mg/dL NT-Pro-B Natriuret Pep 1601 H (0-1000) pg/mL 05/11/19 Range/Units 07:38 WBC (5.0-10.0) 10^3/uL RBC (4.00-5.50) 10^6/uL Hgb (12.0-16.0) g/dL Hct (37.0-47.0) % MCV (82.0-94.0) fL MCH (27.0-32.0) pg MCHC (33.0-38.0) g/dL RDW Coeff of Reji (11.0-15.0) % Plt Count (150-400) 10^3/uL Neut % (Auto) (35-85) % Lymph % (Auto) (10-55) % [place] % (Auto) (0-16) % Eos % (Auto) (0-5) % Baso % (Auto) (0-3) % Neut # (Auto) (1.80-7.00) 10^3/uL Lymph # (Auto) (1.00-4.80) 10^3/uL [place] # (Auto) (0.00-0.80) 10^3/uL Eos # (Auto) (0.00-0.45) 10^3/uL Baso # (Auto) 10^3/uL Sodium (136-145) mEq/L Potassium (3.5-5.0) mEq/L Chloride (98-106) mEq/L Carbon Dioxide (21-32) mmol/L BUN (7-18) mg/dL Creatinine (0.6-1.0) mg/dL Est Cr Clr Drug Dosing mL/min Estimated GFR (MDRD) (>=60) mL/min Glucose (75-99) mg/dL POC Glucose 76 (75-105) mg/dl Calcium (8.4-10.1) mg/dL C-Reactive Protein (0.2-0.8) mg/dL NT-Pro-B Natriuret Pep (0-1000) pg/mL Anthony Results Last 24 Hours: Microbiology 05/09/19 12:58 Aerobic Blood Culture - Preliminary Blood NO GROWTH AFTER 1 DAY Anaerobic Blood Culture - Preliminary NO GROWTH AFTER 1 DAY 05/09/19 12:55 Aerobic Blood Culture - Preliminary Blood NO GROWTH AFTER 1 DAY Anaerobic Blood Culture - Preliminary NO GROWTH AFTER 1 DAY Med Orders - Current: Current Medications Albuterol/Ipratropium (Duoneb 3.0-0.5 Mg/3 Ml) 3 ml NEB TIDRT [facility] Last Admin: 05/11/19 07:33 Dose: 3 ml Atorvastatin Calcium (Lipitor) 40 mg PO DAILY [facility] Last Admin: 05/11/19 07:31 Dose: 40 mg Cholecalciferol (Vitamin D3) 25 mcg PO DAILY [facility] Last Admin: 05/11/19 07:33 Dose: 25 mcg Clopidogrel Bisulfate (Plavix) 75 mg PO DAILY [facility] Last Admin: 05/11/19 07:31 Dose: 75 mg Digoxin (Lanoxin) 125 mcg PO DAILY@1200 [facility] Last Admin: 05/10/19 12:00 Dose: 125 mcg Docusate Sodium (Colace) 100 mg PO BID PRN PRN Reason: Constipation Enoxaparin Sodium (Lovenox) 40 mg SUBCUT Q24H [facility] Last Admin: 05/10/19 17:07 Dose: 40 mg Folic Acid (Folic Acid) 1 mg PO DAILY [facility] Last Admin: 05/11/19 07:30 Dose: 1 mg Furosemide (Lasix) 40 mg PO DAILY [facility] Last Admin: 05/11/19 07:31 Dose: 40 mg Levofloxacin/Dextrose 500 mg/ (Premix) 100 mls @ 100 mls/hr IV Q24H [facility] Last Admin: 05/10/19 17:07 Dose: 100 mls/hr Insulin Glargine (Lantus Solostar) 50 units SUBCUT QPM [facility] Last Admin: 05/10/19 19:42 Dose: 50 units Insulin Glargine (Lantus Solostar) 46 units SUBCUT QAM [facility] Last Admin: 05/11/19 08:27 Dose: 46 units Isosorbide Mononitrate (Imdur) 30 mg PO BID [facility] Last Admin: 05/11/19 07:31 Dose: 30 mg Levothyroxine Sodium (Synthroid) 50 mcg PO ACBREAKFAST [facility] Last Admin: 05/11/19 06:05 Dose: 50 mcg Lisinopril (Prinivil) 5 mg PO DAILY [facility] Last Admin: 05/11/19 07:32 Dose: 5 mg Metformin HCl (Glucophage) 1,000 mg PO BIDMEALS [facility] Last Admin: 05/11/19 07:30 Dose: 1,000 mg Metoprolol Succinate (Toprol Xl) 100 mg PO DAILY [facility] Last Admin: 05/11/19 07:32 Dose: 100 mg Montelukast Sodium (Singulair) 10 mg PO DAILY [facility] Last Admin: 05/11/19 07:32 Dose: 10 mg Morphine Sulfate (Morphine) 2 mg IVPUSH Q2H PRN PRN Reason: Pain (severe 7-10) Sitagliptin (Januvia ) 100 Mg Tab Own Med 0 mg PO DAILY [facility] Last Admin: 05/11/19 07:27 Dose: 100 mg Dabigatran Etexilate Mesylate (Pradaxa) 150 Mg Tab Own Med 0 mg PO BID [facility] Last Admin: 05/11/19 07:28 Dose: 150 mg Ondansetron HCl (Zofran) 4 mg IV Q6H PRN PRN Reason: Nausea/Vomiting Pantoprazole Sodium (Protonix) 40 mg PO ACBRK [facility] Last Admin: 05/11/19 06:05 Dose: 40 mg Pantoprazole Sodium (Protonix Iv) 40 mg IVPUSH Q24H [facility] Temazepam (Restoril) 15 mg PO BEDTIME PRN PRN Reason: Sleep Last Admin: 05/10/19 21:07 Dose: 15 mg Discontinued Medications Furosemide (Lasix) 40 mg IVPUSH ONETIME ONE Stop: 05/09/19 17:39 Last Admin: 05/09/19 18:27 Dose: 40 mg Dabigatran Etexilate Mesylate (Pradaxa) 150 Mg Capsule Own Med 0 mg PO DAILY [facility] Non-Formulary Medication (Lutein [Lutein]) 20 mg PO DAILY [facility] Non-Formulary Medication (Zinc Gluconate [Zinc]) 30 mg PO DAILY [facility] Non-Formulary Medication (Dabigatran Etexilate Mesylate [Pradaxa]) 150 mg PO BID [facility] Sodium Chloride (Saline Flush) 10 ml IV ASDIRECTED [facility] - Exam General: Alert, Oriented HEENT: Mucous Membr. Moist/[place] Neck: Supple Lungs: [place]ales (LLL) Cardiovascular: Regular Rate, Regular Rhythm GI/Abdominal Exam: Normal Bowel Sounds, Soft, Non-Tender Extremities: Normal Inspection, No Pedal Edema Skin: Warm, Dry Neurological: No New Focal Deficit - Problem List & Annotations (1) Community acquired bilateral lower lobe pneumonia SNOMED Code(s): 823802605 Code(s): J18.1 - LOBAR PNEUMONIA, UNSPECIFIED ORGANISM Status: Acute Priority: High Current Visit: Yes Annotation/Comment:: suspect gram negative bacteria (2) CHF, Congestive heart failure SNOMED Code(s): 99542237 Code(s): I50.9 - HEART FAILURE, UNSPECIFIED Status: Chronic Priority: High Current Visit: Yes - Problem List Review Problem List Initiated/Reviewed/Updated: Yes - My Orders Last 24 Hours: My Active Orders 05/11/19 07:00 FOLIC ACID [CHEM] Routine IRON PNL (FE, TIBC, ANNETTE, %SAT) [REF] Stat VITAMIN B12 [CHEM] Routine 05/11/19 08:32 Consult to Physician [CONS] Routine OCCULT BLOOD SCREEN [OP] Routine 05/11/19 08:33 Notify Provider Consults [RC] ASDIRECTED 05/11/19 08:45 Pantoprazole [ProTONIX IV] 40 mg IVPUSH Q24H - Assessment Assessment:: CAP, suspect gram negative bacteria Acute on chronic systolic heart failure, mild - Plan Plan:: This patient is a 68 year old female that was admitted to the hospital yesterday from the clinic. She was admitted for bilateral lower lobe pneumonia. The patient family reports the patient reports the patient usually complains of about health complaints and she is acting how she normally acts. They reports she is maybe a little more pale than normal, but otherwise acting how she normally acts and feels per family. Family does report the patient yesterday called into work which prompted to think she wasnt feeling well. Yesterday in the clinic the patient said she thinks she just has a sinus infection. The patient this morning reports that she has on changes in the way she feels. I asked her, "so you do not feel any better at all since yesterday morning when I saw you." She then responded, "well, maybe a little better." She reports she is not as short of breath. Also, when I enter the room, she is laying at about 15 degrees in her bed, nearly flat, whereas, on exam yesterday she could not do that very long at all without complaining of being short of breath. Patient reports that she feels generally weak, malaise, and fatigued. Patient reports she continues to have shortness of breath, cough, and chest heaviness in her lungs. Yesterday her labs were wbc 9.0, hgb 9.6, CRP 5.2, BNP 2703. Today, wbc 6.4, hgb 9.0, CRP 5.4, BNP 2015. I have reviewed the patient hgb. She has in the past had hx of anemia. The patient denies any history of vomiting blood, bleeding from rectum, blood in bowels, or any known loss of blood. Her HR is paced. Will continue to monitor hgb. Will recheck another hgb later today to see if any more drop. She is not currently getting fluids. Will evaluate the repeat hgb lab later today. At this time, will continue plan of care with abx, breathing tx, and admit. Her EKG from yesterday was paced. 05-11-2019 Patient admits to feeling mildly better. Is still short of breath. Dry cough. Afebrile. Decreased appetite. WBC is normal at 5.8. Hemoglobin still low at 9.2. Has history of ОЛЬГА, has not taken iron for over a year. States was because her prescription ran out and her hemoglobin was up. Reviewing of her chart shows hemoglobin at 11 in December. Denies any abdominal pain, just no appetite. Electrolytes are normal, ProBNP improved to 1601. CRP 2.6. Will obtain ferritin, B12, Folic acid. Occult x3. Protonix 40 mg IV. Proceed with EGD. Recheck labs in am. Encouraged ambulation
[2019-05-11] MEDS: Pantoprazole 40 MG Vial IVPUSH SCH (09:11)
[2019-05-11] MEDS: Digoxin 125 MCG Tab PO SCH (12:06)
[2019-05-11] MEDS: Enoxaparin 40 MG/0.4 ML Syringe SUBCUT SCH (17:17)
[2019-05-11] MEDS: Levofloxacin/Dextrose 5%-Water 500 MG in Premix Bag 1 BAG IV SCH (17:55)
[2019-05-11] MEDS ORDERED: Bisacodyl 5 MG Tab PO ONE (18:00)
[2019-05-12] MEDS: Levothyroxine 50 MCG Tab PO SCH (06:25)
[2019-05-12 07:34] LABS: CHLORIDE,CL 104 mEq/L (98-106); SODIUM,NA 142 mEq/L (136-145)
[2019-05-12] MEDS: Albuterol/Ipratropium 3.0-0.5 MG/3 ML Neb Soln NEB SCH ×3 (07:45→19:35)
[2019-05-12] MEDS: Furosemide 40 MG Tab PO SCH (07:46)
[2019-05-12] MEDS: Lisinopril 5 MG Tab PO SCH (07:47)
[2019-05-12] MEDS: Cholecalciferol (Vitamin D3) 25 MCG Tab PO SCH (07:47)
[2019-05-12] MEDS: Folic Acid 1 MG Tab PO SCH (07:47)
[2019-05-12] MEDS: Isosorbide Mononitrate 30 MG Tab.ER PO SCH ×2 (07:47→19:35)
[2019-05-12] MEDS: Metoprolol Succinate 100 MG Tab.ER PO SCH (07:48)
[2019-05-12] MEDS: Montelukast 10 MG Tab PO SCH (07:48)
[2019-05-12] MEDS: atorvaSTATin 20 MG Tab PO SCH (07:48)
[2019-05-12] MEDS: metFORMIN 500 MG Tab PO SCH ×2 (07:48→18:27)
[2019-05-12] MEDS: DABIGATRAN ETEXILATE MESYLATE 150 MG PO SCH ×3 (07:49→19:35)
[2019-05-12] MEDS: Pantoprazole 40 MG Vial IVPUSH SCH (07:49)
[2019-05-12] MEDS: SITAGLIPTIN 100 MG PO SCH (07:50)
[2019-05-12] MEDS: Insulin Glargine,Human Rec. Analog 100 Units/ML 3 ML Pen SUBCUT SCH ×2 (07:51→21:33)
[2019-05-12] MEDS: Clopidogrel 75 MG Tab PO SCH (07:52)
[2019-05-12] MEDS ORDERED: Lisinopril 5 MG Tab PO ONE (08:49)
--- NOTE | 2019-05-12 09:24 | PCM.PN ---
- General Info Date of Service: 05/12/19 Admission Dx/Problem (Free Text): Bilateral lower lobe pneumonia Functional Status: Reports: Pain Controlled, Tolerating Diet, Ambulating, Urinating - Review of Systems General: Reports: Malaise. Denies: Fever, Weakness, Fatigue HEENT: Reports: Sinus Congestion, Rhinitis Pulmonary: Reports: Shortness of Breath, Cough. Denies: Sputum Cardiovascular: Denies: Chest Pain, Edema, Lightheadedness Gastrointestinal: Denies: Abdominal Pain, Nausea, Vomiting 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: Reports: No Symptoms Musculoskeletal: Reports: No Symptoms Skin: Reports: No Symptoms Neurological: Reports: No Symptoms - Patient Data Vitals - Most Recent: Last Vital Signs Temp 98.2 F 05/12/19 08:30 Pulse 74 05/12/19 08:30 Resp 18 05/12/19 08:30 BP 168/62 H 05/12/19 08:30 Pulse Ox 99 05/12/19 08:30 Weight - Most Recent: 181 lb Lab Results Last 24 Hours: Laboratory Results - last 24 hr 05/11/19 05/11/19 05/11/19 Range/Units 07:00 07:00 12:05 WBC (5.0-10.0) 10^3/uL RBC (4.00-5.50) 10^6/uL Hgb (12.0-16.0) g/dL Hct (37.0-47.0) % MCV (82.0-94.0) fL MCH (27.0-32.0) pg MCHC (33.0-38.0) g/dL RDW Coeff of Reji (11.0-15.0) % Plt Count (150-400) 10^3/uL Neut % (Auto) (35-85) % Lymph % (Auto) (10-55) % [place] % (Auto) (0-16) % Eos % (Auto) (0-5) % Baso % (Auto) (0-3) % Neut # (Auto) (1.80-7.00) 10^3/uL Lymph # (Auto) (1.00-4.80) 10^3/uL [place] # (Auto) (0.00-0.80) 10^3/uL Eos # (Auto) (0.00-0.45) 10^3/uL Baso # (Auto) 10^3/uL Sodium (136-145) mEq/L Potassium (3.5-5.0) mEq/L Chloride (98-106) mEq/L Carbon Dioxide (21-32) mmol/L BUN (7-18) mg/dL Creatinine (0.6-1.0) mg/dL Est Cr Clr Drug Dosing mL/min Estimated GFR (MDRD) (>=60) mL/min Glucose (75-99) mg/dL POC Glucose 83 (75-105) mg/dl Calcium (8.4-10.1) mg/dL Iron 37 (35-145) ug/dL TIBC 344 (261-478) ug/dL Unsaturated IBC 307 (155-355) ug/dL Transferrin % Sat 10.8 L (20.0-50.0) % Ferritin 18 (11-307) ng/mL C-Reactive Protein (0.2-0.8) mg/dL Vitamin B12 563 (193-986) PG/ML Folate > 20 (>8.6) NG/ML 05/11/19 05/11/19 05/12/19 Range/Units 17:13 20:07 07:00 WBC 6.4 (5.0-10.0) 10^3/uL RBC 3.76 L (4.00-5.50) 10^6/uL Hgb 9.7 L (12.0-16.0) g/dL Hct 31.6 L (37.0-47.0) % MCV 84.0 (82.0-94.0) fL MCH 25.8 L (27.0-32.0) pg MCHC 30.7 L (33.0-38.0) g/dL RDW Coeff of Reji 15.7 H (11.0-15.0) % Plt Count 217 (150-400) 10^3/uL Neut % (Auto) 66.8 (35-85) % Lymph % (Auto) 20.9 (10-55) % [place] % (Auto) 5.7 (0-16) % Eos % (Auto) 6.0 H (0-5) % Baso % (Auto) 0.6 (0-3) % Neut # (Auto) 4.24 (1.80-7.00) 10^3/uL Lymph # (Auto) 1.33 (1.00-4.80) 10^3/uL [place] # (Auto) 0.36 (0.00-0.80) 10^3/uL Eos # (Auto) 0.38 (0.00-0.45) 10^3/uL Baso # (Auto) 0.04 10^3/uL Sodium (136-145) mEq/L Potassium (3.5-5.0) mEq/L Chloride (98-106) mEq/L Carbon Dioxide (21-32) mmol/L BUN (7-18) mg/dL Creatinine (0.6-1.0) mg/dL Est Cr Clr Drug Dosing mL/min Estimated GFR (MDRD) (>=60) mL/min Glucose (75-99) mg/dL POC Glucose 100 128 H (75-105) mg/dl Calcium (8.4-10.1) mg/dL Iron (35-145) ug/dL TIBC (261-478) ug/dL Unsaturated IBC (155-355) ug/dL Transferrin % Sat (20.0-50.0) % Ferritin (11-307) ng/mL C-Reactive Protein (0.2-0.8) mg/dL Vitamin B12 (193-986) PG/ML Folate (>8.6) NG/ML 05/12/19 05/12/19 Range/Units 07:00 07:50 WBC (5.0-10.0) 10^3/uL RBC (4.00-5.50) 10^6/uL Hgb (12.0-16.0) g/dL Hct (37.0-47.0) % MCV (82.0-94.0) fL MCH (27.0-32.0) pg MCHC (33.0-38.0) g/dL RDW Coeff of Reji (11.0-15.0) % Plt Count (150-400) 10^3/uL Neut % (Auto) (35-85) % Lymph % (Auto) (10-55) % [place] % (Auto) (0-16) % Eos % (Auto) (0-5) % Baso % (Auto) (0-3) % Neut # (Auto) (1.80-7.00) 10^3/uL Lymph # (Auto) (1.00-4.80) 10^3/uL [place] # (Auto) (0.00-0.80) 10^3/uL Eos # (Auto) (0.00-0.45) 10^3/uL Baso # (Auto) 10^3/uL Sodium 142 (136-145) mEq/L Potassium 3.7 (3.5-5.0) mEq/L Chloride 104 (98-106) mEq/L Carbon Dioxide 30 (21-32) mmol/L BUN 10 (7-18) mg/dL Creatinine 0.7 (0.6-1.0) mg/dL Est Cr Clr Drug Dosing 73.01 mL/min Estimated GFR (MDRD) > 60 (>=60) mL/min Glucose 81 (75-99) mg/dL POC Glucose 84 (75-105) mg/dl Calcium 9.9 (8.4-10.1) mg/dL Iron (35-145) ug/dL TIBC (261-478) ug/dL Unsaturated IBC (155-355) ug/dL Transferrin % Sat (20.0-50.0) % Ferritin (11-307) ng/mL C-Reactive Protein 1.2 H (0.2-0.8) mg/dL Vitamin B12 (193-986) PG/ML Folate (>8.6) NG/ML Anthony Results Last 24 Hours: Microbiology 05/11/19 09:15 Occult Blood - Final Stool / Feces - Stool, Formed 05/09/19 12:58 Aerobic Blood Culture - Preliminary Blood NO GROWTH AFTER 2 DAYS Anaerobic Blood Culture - Preliminary NO GROWTH AFTER 2 DAYS 05/09/19 12:55 Aerobic Blood Culture - Preliminary Blood NO GROWTH AFTER 2 DAYS Anaerobic Blood Culture - Preliminary NO GROWTH AFTER 2 DAYS Med Orders - Current: Current Medications Albuterol/Ipratropium (Duoneb 3.0-0.5 Mg/3 Ml) 3 ml NEB TIDRT [facility] Last Admin: 05/12/19 07:45 Dose: 3 ml Atorvastatin Calcium (Lipitor) 40 mg PO DAILY [facility] Last Admin: 05/12/19 07:48 Dose: 40 mg Bisacodyl (Dulcolax) 10 mg PO ONETIME ONE Stop: 05/12/19 19:01 Cholecalciferol (Vitamin D3) 25 mcg PO DAILY [facility] Last Admin: 05/12/19 07:47 Dose: 25 mcg Digoxin (Lanoxin) 125 mcg PO DAILY@1200 [facility] Last Admin: 05/11/19 12:06 Dose: 125 mcg Docusate Sodium (Colace) 100 mg PO BID PRN PRN Reason: Constipation Enoxaparin Sodium (Lovenox) 40 mg SUBCUT Q24H [facility] Last Admin: 05/11/19 17:17 Dose: 40 mg Folic Acid (Folic Acid) 1 mg PO DAILY [facility] Last Admin: 05/12/19 07:47 Dose: 1 mg Furosemide (Lasix) 40 mg PO DAILY [facility] Last Admin: 05/12/19 07:46 Dose: 40 mg Levofloxacin/Dextrose 500 mg/ (Premix) 100 mls @ 100 mls/hr IV Q24H [facility] Last Admin: 05/11/19 17:55 Dose: 100 mls/hr Insulin Glargine (Lantus Solostar) 50 units SUBCUT QPM [facility] Last Admin: 05/11/19 20:10 Dose: 50 units Insulin Glargine (Lantus Solostar) 46 units SUBCUT QAM [facility] Last Admin: 05/12/19 07:51 Dose: 23 units Isosorbide Mononitrate (Imdur) 30 mg PO BID [facility] Last Admin: 05/12/19 07:47 Dose: 30 mg Levothyroxine Sodium (Synthroid) 50 mcg PO ACBREAKFAST [facility] Last Admin: 05/12/19 06:25 Dose: 50 mcg Lisinopril (Prinivil) 10 mg PO DAILY [facility] Metformin HCl (Glucophage) 1,000 mg PO BIDMEALS [facility] Last Admin: 05/12/19 07:48 Dose: 1,000 mg Metoprolol Succinate (Toprol Xl) 100 mg PO DAILY [facility] Last Admin: 05/12/19 07:48 Dose: 100 mg Montelukast Sodium (Singulair) 10 mg PO DAILY [facility] Last Admin: 05/12/19 07:48 Dose: 10 mg Morphine Sulfate (Morphine) 2 mg IVPUSH Q2H PRN PRN Reason: Pain (severe 7-10) Sitagliptin (Januvia ) 100 Mg Tab Own Med 0 mg PO DAILY [facility] Last Admin: 05/12/19 07:50 Dose: 100 mg Dabigatran Etexilate Mesylate (Pradaxa) 150 Mg Tab Own Med 0 mg PO BID [facility] Last Admin: 05/12/19 08:33 Dose: Not Given Ondansetron HCl (Zofran) 4 mg IV Q6H PRN PRN Reason: Nausea/Vomiting Pantoprazole Sodium (Protonix Iv) 40 mg IVPUSH Q24H [facility] Last Admin: 05/12/19 07:49 Dose: 40 mg Polyethylene Glycol (Miralax) 238 gm PO ONETIME ONE Stop: 05/12/19 18:01 Temazepam (Restoril) 15 mg PO BEDTIME PRN PRN Reason: Sleep Last Admin: 05/10/19 21:07 Dose: 15 mg Discontinued Medications Bisacodyl (Dulcolax) 10 mg PO ONETIME ONE Stop: 05/11/19 18:01 Last Admin: 05/11/19 17:16 Dose: 10 mg Clopidogrel Bisulfate (Plavix) 75 mg PO DAILY [facility] Last Admin: 05/12/19 07:52 Dose: Not Given Furosemide (Lasix) 40 mg IVPUSH ONETIME ONE Stop: 05/09/19 17:39 Last Admin: 05/09/19 18:27 Dose: 40 mg Lisinopril (Prinivil) 5 mg PO DAILY [facility] Last Admin: 05/12/19 07:47 Dose: 5 mg Lisinopril (Prinivil) 5 mg PO ONETIME ONE Stop: 05/12/19 08:50 Dabigatran Etexilate Mesylate (Pradaxa) 150 Mg Capsule Own Med 0 mg PO DAILY [facility] Non-Formulary Medication (Lutein [Lutein]) 20 mg PO DAILY [facility] Non-Formulary Medication (Zinc Gluconate [Zinc]) 30 mg PO DAILY [facility] Non-Formulary Medication (Dabigatran Etexilate Mesylate [Pradaxa]) 150 mg PO BID [facility] Pantoprazole Sodium (Protonix) 40 mg PO ACBRK [facility] Last Admin: 05/11/19 06:05 Dose: 40 mg Sodium Chloride (Saline Flush) 10 ml IV ASDIRECTED [facility] - Exam General: Alert, Oriented HEENT: Mucous Membr. Moist/[place] Neck: Supple Lungs: Clear to Auscultation, Normal Respiratory Effort Cardiovascular: Regular Rate, Regular Rhythm GI/Abdominal Exam: Normal Bowel Sounds, Soft, Non-Tender Extremities: Normal Inspection, No Pedal Edema Skin: Warm, Dry Neurological: No New Focal Deficit - Problem List & Annotations (1) Community acquired bilateral lower lobe pneumonia SNOMED Code(s): 821492578 Code(s): J18.1 - LOBAR PNEUMONIA, UNSPECIFIED ORGANISM Status: Acute Priority: High Current Visit: Yes Annotation/Comment:: suspect gram negative bacteria (2) CHF, Congestive heart failure SNOMED Code(s): 08502201 Code(s): I50.9 - HEART FAILURE, UNSPECIFIED Status: Chronic Priority: High Current Visit: Yes - Problem List Review Problem List Initiated/Reviewed/Updated: Yes - My Orders Last 24 Hours: My Active Orders 05/11/19 08:32 Consult to Physician [CONS] Routine 05/11/19 08:45 Pantoprazole [ProTONIX IV] 40 mg IVPUSH Q24H 05/12/19 18:00 Polyethylene Glycol 3350 [MiraLAX] 238 gm PO ONETIME ONE 05/12/19 19:00 Bisacodyl [Dulcolax] 10 mg PO ONETIME ONE 05/13/19 08:00 Lisinopril [Prinivil] 10 mg PO DAILY - Assessment Assessment:: CAP, suspect gram negative bacteria Acute on chronic systolic heart failure, mild - Plan Plan:: This patient is a 68 year old female that was admitted to the hospital yesterday from the clinic. She was admitted for bilateral lower lobe pneumonia. The patient family reports the patient reports the patient usually complains of about health complaints and she is acting how she normally acts. They reports she is maybe a little more pale than normal, but otherwise acting how she normally acts and feels per family. Family does report the patient yesterday called into work which prompted to think she wasnt feeling well. Yesterday in the clinic the patient said she thinks she just has a sinus infection. The patient this morning reports that she has on changes in the way she feels. I asked her, "so you do not feel any better at all since yesterday morning when I saw you." She then responded, "well, maybe a little better." She reports she is not as short of breath. Also, when I enter the room, she is laying at about 15 degrees in her bed, nearly flat, whereas, on exam yesterday she could not do that very long at all without complaining of being short of breath. Patient reports that she feels generally weak, malaise, and fatigued. Patient reports she continues to have shortness of breath, cough, and chest heaviness in her lungs. Yesterday her labs were wbc 9.0, hgb 9.6, CRP 5.2, BNP 2703. Today, wbc 6.4, hgb 9.0, CRP 5.4, BNP 2015. I have reviewed the patient hgb. She has in the past had hx of anemia. The patient denies any history of vomiting blood, bleeding from rectum, blood in bowels, or any known loss of blood. Her HR is paced. Will continue to monitor hgb. Will recheck another hgb later today to see if any more drop. She is not currently getting fluids. Will evaluate the repeat hgb lab later today. At this time, will continue plan of care with abx, breathing tx, and admit. Her EKG from yesterday was paced. 05-11-2019 Patient admits to feeling mildly better. Is still short of breath. Dry cough. Afebrile. Decreased appetite. WBC is normal at 5.8. Hemoglobin still low at 9.2. Has history of ОЛЬГА, has not taken iron for over a year. States was because her prescription ran out and her hemoglobin was up. Reviewing of her chart shows hemoglobin at 11 in December. Denies any abdominal pain, just no appetite. Electrolytes are normal, ProBNP improved to 1601. CRP 2.6. Will obtain ferritin, B12, Folic acid. Occult x3. Protonix 40 mg IV. Proceed with EGD. Recheck labs in am. Encouraged ambulation 05-12-2019 Patient is sitting up, resting comfortably, looking better today. Does still short of breath with exertion. Dry cough. Afebrile. Blood pressure has been systolically high, today 168/62. Labs stable today. WBC 6.4, hemoglobin 9.7. Electrolytes normal. Ferritin low normal at 18. B12 and folic acid levels normal. Will continue clear liquids for prep for EGD/colon tomorrow. Will stop Plavix as also on Pradaxa. Will increase Lisinopril to 10 mg daily. Continue to follow
[2019-05-12] MEDS: Digoxin 125 MCG Tab PO SCH (12:17)
[2019-05-12] MEDS ORDERED: Polyethylene Glycol 3350 Powder 238 GM Bot PO ONE (18:00)
[2019-05-12] MEDS: Enoxaparin 40 MG/0.4 ML Syringe SUBCUT SCH (18:27)
[2019-05-12] MEDS: Levofloxacin/Dextrose 5%-Water 500 MG in Premix Bag 1 BAG IV SCH (18:27)
[2019-05-12] MEDS ORDERED: Bisacodyl 5 MG Tab PO ONE (19:00)
[2019-05-13] MEDS: Levothyroxine 50 MCG Tab PO SCH (06:11)
[2019-05-13] MEDS: Albuterol/Ipratropium 3.0-0.5 MG/3 ML Neb Soln NEB SCH (07:36)
[2019-05-13] MEDS: Isosorbide Mononitrate 30 MG Tab.ER PO SCH (07:37)
[2019-05-13] MEDS: Metoprolol Succinate 100 MG Tab.ER PO SCH (07:37)
[2019-05-13] MEDS ORDERED: Lisinopril 5 MG Tab PO SCH (08:00)
[2019-05-13 09:13] LABS: CHLORIDE,CL 106 mEq/L (98-106); SODIUM,NA 142 mEq/L (136-145)
[2019-05-13] MEDS ORDERED: Lactated Ringers 1,000 ML IV SCH (09:30)
[2019-05-13 12:53] VITALS: BP 128/48
[2019-05-13] MEDS: atorvaSTATin 20 MG Tab PO SCH (14:00)
[2019-05-13] MEDS: Folic Acid 1 MG Tab PO SCH (14:00)
[2019-05-13] MEDS: Cholecalciferol (Vitamin D3) 25 MCG Tab PO SCH (14:01)
[2019-05-13] MEDS: Digoxin 125 MCG Tab PO SCH (14:01)
[2019-05-13] MEDS: Montelukast 10 MG Tab PO SCH (14:02)
[2019-05-13] MEDS: Furosemide 40 MG Tab PO SCH (14:02)
[2019-05-13 14:04] VITALS: PULSE 72
--- NOTE | 2019-05-13 14:16 | OR ---
DATE OF OPERATION: 05/13/2019 PREOPERATIVE DIAGNOSIS: IRON-DEFICIENCY ANEMIA. POSTOPERATIVE DIAGNOSIS: IRON-DEFICIENCY ANEMIA. SURGEON: Jonnathan Branch MD PROCEDURE: 1. ESOPHAGOGASTRODUODENOSCOPY WITH BIOPSY X2, KASSY. 2. FULL-LENGTH COLONOSCOPY WITH BIOPSY X1. ANESTHESIA: Conscious sedation with continuous O2 saturation monitoring and nurse assist. A total of 75 mg of Demerol and 4 mg of Versed given IV. The patient's saturations remained above 90% the entire time. FINDINGS: 1. Full-length EGD. 2. Minimal antral gastritis. 3. Small hiatal hernia without esophagitis. 4. Full-length colonoscopy. 5. Mild sigmoid diverticulosis. 6. Small submucosal lipoma, ascending colon. RECOMMENDATIONS: Ongoing medical followup for the patient's anemia. INDICATIONS: The patient is in the hospital for an unrelated concern. She is found to be iron deficient with a hemoglobin around 9.5, elected to proceed with upper and lower endoscopy. DESCRIPTION OF PROCEDURE: The patient was prepped and draped, placed in the left lateral decubitus position. A lubricated Olympus gastroscope was inserted over a bit, advanced to cricopharyngeus area, and easily intubated into the esophagus. The esophageal lining was benign in its entire course. The Z-line was crisp around 37 cm. A small hernia was present with some GERD, but no distal esophagitis, stricturing, ulceration, or Smith's changes. The scope was advanced into the stomach through the pylorus and into the second portion of the duodenum. This and the duodenal bulb were unremarkable. The scope was brought back into the stomach and retroflexed. The upper fundus and cardia were benign. Upon straightening, there may have been some very mild inflammation of the distal antrum. Two biopsies were taken along with the CLOtest. Air was then suctioned from the stomach and the scope removed without complication. A lubricated Olympus colonoscope was then inserted and easily advanced to the cecum and directly visualized the ileocecal valve and appendiceal orifice. The bowel prep was excellent. Upon withdrawal of the scope, the cecum was benign. In the mid ascending colon, patient had a small submucosal lipoma, biopsy for verification. Throughout the rest of the colon, I found no other polyps, mass, ulceration, or bleeding sites. No vascular abnormalities or signs of colitis. The patient does have some mild diverticular disease in the sigmoid, but very minimal. Rectosigmoid junction was benign. The rectal vault was unremarkable. Retroflexion showed no perianal lesions. Air was suctioned. Scope removed without complication. MABEL /[id number]
--- NOTE | 2019-05-13 17:21 | PCM.DCSUM1 ---
Discharge Summary - Hospital Course Free Text/Narrative:: Patient presented to clinic with complaints of increased sinus congestion, shortness of breath and chest congestion. Was afebrile. WBC was normal. Hemoglobin 9.6. ProBNP elevated at 2703. Chest xray shows bilateral lower lobe infiltrates. Admitted and started on IV antibiotics, nebs and IV Lasix. Diagnosis: Stroke: No Modified Nuckolls Scale: No Symptoms at All Modified Kayla Scale Score: 0 - Discharge Data Discharge Date: 05/13/19 Discharge Disposition: Home, Self-Care 01 Condition: Good - Discharge Diagnosis/Problem(s) (1) Community acquired bilateral lower lobe pneumonia SNOMED Code(s): 440420116 ICD Code: J18.1 - LOBAR PNEUMONIA, UNSPECIFIED ORGANISM Status: Acute Priority: High Problem Details: suspect gram negative bacteria (2) CHF, Congestive heart failure SNOMED Code(s): 16275509 ICD Code: I50.9 - HEART FAILURE, UNSPECIFIED Status: Chronic Priority: High - Patient Summary/Data Consults: Consultations 05/11/19 08:32 Consult to Physician [CONS] Routine 05/11/19 14:26 Consult to Physician [CONS Hospital Course: Patient feeling better today. Was admitted for bilateral pneumonia. Cough is minimal, remains nonproductive throughout stay. Afebrile. Does admit to mild shortness of breath yet with exertion. Lung sounds are clear. WBC has remained stable through stay, today 6.4. Hemoglobin was 9.6 on admit, dropped to 9. History of ОЛЬГА, had stopped taking iron over a year ago. Occult blood screens x3 negative. Ferritin low side of normal at 18. B12 and folic acid normal. Due to concerns with anemia, EGD and colonoscopy done this am. Negative for active bleeding concerns. Will discharge home on Levaquin. Restart iron. Follow up with Ryne in one week. - Patient Instructions Diet: Diabetic Diet Activity: As Tolerated - Discharge Plan *PRESCRIPTION DRUG MONITORING PROGRAM REVIEWED*: No *COPY OF PRESCRIPTION DRUG MONITORING REPORT IN PATIENT JORDY: No Prescriptions/Med Rec: Ferrous Sulfate 325 mg PO DAILY #30 tablet Levofloxacin [Levaquin] 500 mg PO DAILY #7 tablet Home Medications: Home Meds Acetaminophen [Tylenol Arthritis Pain] 650 mg PO Q4H PRN 01/21/14 [History] Cholecalciferol (Vitamin D3) [Vitamin D3] 1,000 unit PO DAILY 01/21/14 [History] Dabigatran Etexilate Mesylate [Pradaxa] 150 mg PO BID 01/21/14 [History] Digoxin 125 mcg PO DAILY 01/21/14 [History] Furosemide [Lasix] 40 mg PO DAILY 01/21/14 [History] Insulin Detemir [Levemir] 46 units SUBCUT QAM 01/21/14 [History] Lactobacillus Acidophilus [Probiotic] 1 each PO DAILY 01/21/14 [History] Levothyroxine Sodium 50 mcg PO DAILY 01/21/14 [History] Metoprolol Succinate [Toprol XL] 100 mg PO DAILY 01/21/14 [History] Quinapril HCl 10 mg PO DAILY 01/21/14 [History] SitaGLIPtin [Januvia] 100 mg PO DAILY 01/21/14 [History] Zinc Gluconate [Zinc] 30 mg PO DAILY 01/21/14 [History] metFORMIN [Glucophage] 1,000 mg PO BID 01/21/14 [History] atorvaSTATin [Lipitor] 40 mg PO DAILY 02/18/14 [History] Clopidogrel [Plavix] 75 mg PO DAILY 12/13/15 [History] Isosorbide Mononitrate [Imdur] 30 mg PO BID 06/29/16 [History] Lutein 20 mg PO DAILY 06/29/16 [History] Montelukast Sodium 10 mg PO DAILY 06/29/16 [History] Omeprazole 20 mg PO DAILY 06/29/16 [History] Insulin Detemir [Levemir] 50 units SUBCUT QPM 05/14/17 [History] Ferrous Sulfate 325 mg PO DAILY #30 tablet 05/13/19 [Rx] Levofloxacin [Levaquin] 500 mg PO DAILY #7 tablet 05/13/19 [Rx] Patient Handouts: Community-Acquired Pneumonia, Adult Referrals: Praveen Ring PA-C [Physician Fashion Show Director] - (Recheck with Ryne in one week) - Discharge Summary/Plan Comment DC Time >30 min.: No - General Info Date of Service: 05/13/19 Admission Dx/Problem (Free Text: Bilateral Lobe Lobe pneumonia, suspect gram negative bacteria. Functional Status: Reports: Pain Controlled, Tolerating Diet, Ambulating - Review of Systems General: Reports: Weakness, Fatigue, Malaise. Denies: Fever HEENT: Denies: Sinus Congestion, Sore Throat Pulmonary: Reports: Shortness of Breath, Cough. Denies: Wheezing Cardiovascular: Denies: Chest Pain, Edema, Lightheadedness Gastrointestinal: Denies: Abdominal Pain, Nausea, Vomiting 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: Reports: No Symptoms Musculoskeletal: Reports: No Symptoms Skin: Reports: No Symptoms Neurological: Reports: No Symptoms - Patient Data Vitals - Most Recent: Last Vital Signs Temp 96.6 F 05/13/19 12:40 Pulse 72 05/13/19 14:01 Resp 16 05/13/19 12:40 BP 128/48 L 05/13/19 12:40 Pulse Ox 94 L 05/13/19 12:40 Weight - Most Recent: 181 lb Lab Results - Last 24 hrs: Laboratory Results - last 24 hr 05/12/19 05/12/19 05/13/19 Range/Units 17:43 21:28 08:26 WBC (5.0-10.0) 10^3/uL RBC (4.00-5.50) 10^6/uL Hgb (12.0-16.0) g/dL Hct (37.0-47.0) % MCV (82.0-94.0) fL MCH (27.0-32.0) pg MCHC (33.0-38.0) g/dL RDW Coeff of Reji (11.0-15.0) % Plt Count (150-400) 10^3/uL Neut % (Auto) (35-85) % Lymph % (Auto) (10-55) % [place] % (Auto) (0-16) % Eos % (Auto) (0-5) % Baso % (Auto) (0-3) % Neut # (Auto) (1.80-7.00) 10^3/uL Lymph # (Auto) (1.00-4.80) 10^3/uL [place] # (Auto) (0.00-0.80) 10^3/uL Eos # (Auto) (0.00-0.45) 10^3/uL Baso # (Auto) 10^3/uL Sodium (136-145) mEq/L Potassium (3.5-5.0) mEq/L Chloride (98-106) mEq/L Carbon Dioxide (21-32) mmol/L BUN (7-18) mg/dL Creatinine (0.6-1.0) mg/dL Est Cr Clr Drug Dosing mL/min Estimated GFR (MDRD) (>=60) mL/min Glucose (75-99) mg/dL POC Glucose 92 164 H 145 H (75-105) mg/dl Calcium (8.4-10.1) mg/dL 05/13/19 05/13/19 05/13/19 Range/Units 09:00 09:00 12:50 WBC 5.7 (5.0-10.0) 10^3/uL RBC 3.74 L (4.00-5.50) 10^6/uL Hgb 9.6 L (12.0-16.0) g/dL Hct 31.1 L (37.0-47.0) % MCV 83.2 (82.0-94.0) fL MCH 25.7 L (27.0-32.0) pg MCHC 30.9 L (33.0-38.0) g/dL RDW Coeff of Reji 15.9 H (11.0-15.0) % Plt Count 198 (150-400) 10^3/uL Neut % (Auto) 70.5 (35-85) % Lymph % (Auto) 17.1 (10-55) % [place] % (Auto) 6.2 (0-16) % Eos % (Auto) 5.5 H (0-5) % Baso % (Auto) 0.7 (0-3) % Neut # (Auto) 4.01 (1.80-7.00) 10^3/uL Lymph # (Auto) 0.97 L (1.00-4.80) 10^3/uL [place] # (Auto) 0.35 (0.00-0.80) 10^3/uL Eos # (Auto) 0.31 (0.00-0.45) 10^3/uL Baso # (Auto) 0.04 10^3/uL Sodium 142 (136-145) mEq/L Potassium 3.9 (3.5-5.0) mEq/L Chloride 106 (98-106) mEq/L Carbon Dioxide 27 (21-32) mmol/L BUN 6 L (7-18) mg/dL Creatinine 0.6 (0.6-1.0) mg/dL Est Cr Clr Drug Dosing 85.18 mL/min Estimated GFR (MDRD) > 60 (>=60) mL/min Glucose 142 H D (75-99) mg/dL POC Glucose 143 H (75-105) mg/dl Calcium 10.1 (8.4-10.1) mg/dL YOSEF Results - Last 24 hrs: Microbiology 05/09/19 12:58 Aerobic Blood Culture - Preliminary Blood NO GROWTH AFTER 4 DAYS Anaerobic Blood Culture - Preliminary NO GROWTH AFTER 4 DAYS 05/09/19 12:55 Aerobic Blood Culture - Preliminary Blood NO GROWTH AFTER 4 DAYS Anaerobic Blood Culture - Preliminary NO GROWTH AFTER 4 DAYS Med Orders - Current: Current Medications Discontinued Medications Albuterol/Ipratropium (Duoneb 3.0-0.5 Mg/3 Ml) 3 ml NEB TIDRT [facility] Last Admin: 05/13/19 07:36 Dose: 3 ml Atorvastatin Calcium (Lipitor) 40 mg PO DAILY [facility] Last Admin: 05/13/19 14:00 Dose: 40 mg Bisacodyl (Dulcolax) 10 mg PO ONETIME ONE Stop: 05/11/19 18:01 Last Admin: 05/11/19 17:16 Dose: 10 mg Bisacodyl (Dulcolax) 10 mg PO ONETIME ONE Stop: 05/12/19 19:01 Last Admin: 05/12/19 18:01 Dose: 10 mg Cholecalciferol (Vitamin D3) 25 mcg PO DAILY [facility] Last Admin: 05/13/19 14:01 Dose: 25 mcg Clopidogrel Bisulfate (Plavix) 75 mg PO DAILY [facility] Last Admin: 05/12/19 07:52 Dose: Not Given Digoxin (Lanoxin) 125 mcg PO DAILY@1200 [facility] Last Admin: 05/13/19 14:01 Dose: 125 mcg Docusate Sodium (Colace) 100 mg PO BID PRN PRN Reason: Constipation Enoxaparin Sodium (Lovenox) 40 mg SUBCUT Q24H [facility] Last Admin: 05/12/19 18:27 Dose: Not Given Folic Acid (Folic Acid) 1 mg PO DAILY [facility] Last Admin: 05/13/19 14:00 Dose: 1 mg Furosemide (Lasix) 40 mg IVPUSH ONETIME ONE Stop: 05/09/19 17:39 Last Admin: 05/09/19 18:27 Dose: 40 mg Furosemide (Lasix) 40 mg PO DAILY [facility] Last Admin: 05/13/19 14:02 Dose: Not Given Levofloxacin/Dextrose 500 mg/ (Premix) 100 mls @ 100 mls/hr IV Q24H [facility] Last Admin: 05/12/19 18:27 Dose: 100 mls/hr Lactated Ringer's (Ringers, Lactated) 1,000 mls @ 125 mls/hr IV ASDIRECTED [facility] Last Admin: 05/13/19 11:15 Dose: 125 mls/hr Insulin Glargine (Lantus Solostar) 50 units SUBCUT QPM [facility] Last Admin: 05/12/19 21:33 Dose: Not Given Insulin Glargine (Lantus Solostar) 46 units SUBCUT QAM [facility] Last Admin: 05/12/19 07:51 Dose: 23 units Isosorbide Mononitrate (Imdur) 30 mg PO BID [facility] Last Admin: 05/13/19 07:37 Dose: 30 mg Levothyroxine Sodium (Synthroid) 50 mcg PO ACBREAKFAST [facility] Last Admin: 05/13/19 06:11 Dose: Not Given Lisinopril (Prinivil) 5 mg PO DAILY [facility] Last Admin: 05/12/19 07:47 Dose: 5 mg Lisinopril (Prinivil) 5 mg PO ONETIME ONE Stop: 05/12/19 08:50 Last Admin: 05/12/19 09:38 Dose: 5 mg Lisinopril (Prinivil) 10 mg PO DAILY [facility] Last Admin: 05/13/19 07:36 Dose: 10 mg Metformin HCl (Glucophage) 1,000 mg PO BIDMEALS [facility] Last Admin: 05/12/19 18:27 Dose: Not Given Metoprolol Succinate (Toprol Xl) 100 mg PO DAILY [facility] Last Admin: 05/13/19 07:37 Dose: 100 mg Montelukast Sodium (Singulair) 10 mg PO DAILY [facility] Last Admin: 05/13/19 14:02 Dose: 10 mg Morphine Sulfate (Morphine) 2 mg IVPUSH Q2H PRN PRN Reason: Pain (severe 7-10) Dabigatran Etexilate Mesylate (Pradaxa) 150 Mg Capsule Own Med 0 mg PO DAILY [facility] Non-Formulary Medication (Lutein [Lutein]) 20 mg PO DAILY [facility] Sitagliptin (Januvia ) 100 Mg Tab Own Med 0 mg PO DAILY [facility] Last Admin: 05/12/19 07:50 Dose: 100 mg Non-Formulary Medication (Zinc Gluconate [Zinc]) 30 mg PO DAILY [facility] Non-Formulary Medication (Dabigatran Etexilate Mesylate [Pradaxa]) 150 mg PO BID [facility] Dabigatran Etexilate Mesylate (Pradaxa) 150 Mg Tab Own Med 0 mg PO BID [facility] Last Admin: 05/12/19 19:35 Dose: Not Given Ondansetron HCl (Zofran) 4 mg IV Q6H PRN PRN Reason: Nausea/Vomiting Pantoprazole Sodium (Protonix) 40 mg PO ACBRK [facility] Last Admin: 05/11/19 06:05 Dose: 40 mg Pantoprazole Sodium (Protonix Iv) 40 mg IVPUSH Q24H [facility] Last Admin: 05/12/19 07:49 Dose: 40 mg Polyethylene Glycol (Miralax) 238 gm PO ONETIME ONE Stop: 05/12/19 18:01 Last Admin: 05/12/19 17:47 Dose: 238 gm Sodium Chloride (Saline Flush) 10 ml IV ASDIRECTED [facility] Temazepam (Restoril) 15 mg PO BEDTIME PRN PRN Reason: Sleep Last Admin: 05/10/19 21:07 Dose: 15 mg - Exam General: Reports: Alert, Oriented Neck: Reports: Supple Lungs: Reports: Clear to Auscultation, Normal Respiratory Effort Cardiovascular: Reports: Irregular Rhythm GI/Abdominal Exam: Normal Bowel Sounds, Soft, Non-Tender Extremities: Normal Inspection, No Pedal Edema Skin: Reports: Warm, Dry Neurological: Reports: No New Focal Deficit
== END 2019-05-13 16:05 | disposition home or self-care (01) | DRG 291 ==
LOC: CC.DI 12:38 → UNDOADMIN 14:27 → CC.MS 14:27
PROVIDERS: ADMIT Nurse Practitioner; ATTEND Nurse Practitioner
PROC: 0DB68ZX Excision of Stomach, Via Natural or Artificial Opening Endoscopic, Diagnostic (ICD-10-PCS; principal; 2019-05-13)
PROC: 0DBK8ZX Excision of Ascending Colon, Via Natural or Artificial Opening Endoscopic, Diagnostic (ICD-10-PCS; 2019-05-13)
DX: I11.0 Hypertensive heart disease with heart failure (principal); J18.1 Lobar pneumonia, unspecified organism; I50.23 Acute on chronic systolic (congestive) heart failure; D50.9 Iron deficiency anemia, unspecified; K57.30 Diverticulosis of large intestine without perforation or abscess without bleeding; K29.70 Gastritis, unspecified, without bleeding; K44.9 Diaphragmatic hernia without obstruction or gangrene; D17.79 Benign lipomatous neoplasm of other sites; Z79.899 Other long term (current) drug therapy; Z79.4 Long term (current) use of insulin
CPT/HCPCS: 36415; 43239; 45380; 71046; 80048; 80053; 81001; 82270; 82550; 82607; 82728; 82746; 82962; 83540; 83550; 83690; 83880; 84484; 85014; 85018; 85025; 85379; 85610; 86140; 87040; 87081; 88305; 88342; 93005; 93010; 94640; A9270-GY; C9113; J1650; J1815-GY; J1940; J1956; J7120; J7620-GY

== ENCOUNTER → 2019-06-30 | Day surgery (SDC) | payer MEDICARE, BC ==
[~2019-06-30] MED LIST changes: -Acetaminophen/HYDROcodone 325-5 MG Tab PO ONE; +Lidocaine 1% 20 ML MDV ONE
[2019-06-30 12:57] VITALS: BP 166/60; PULSE 66
== END ==
LOC: CC.SDS 10:05
PROVIDERS: ATTEND Family Medicine
DX: I83.11 Varicose veins of right lower extremity with inflammation (principal); I83.811 Varicose veins of right lower extremity with pain
CPT/HCPCS: A4216

== ENCOUNTER → 2019-07-21 | Day surgery (SDC) | payer MEDICARE, BC ==
[2019-07-21 12:28] VITALS: BP 159/65; PULSE 80
== END ==
LOC: CC.SDS 10:13
PROVIDERS: ATTEND Family Medicine
DX: I83.12 Varicose veins of left lower extremity with inflammation (principal); I83.812 Varicose veins of left lower extremity with pain
CPT/HCPCS: A4216

== ENCOUNTER 2020-04-03 12:44 | Emergency (ER) | payer OTHER, MEDICARE, BC ==
[2020-04-03] MEDS ORDERED: Acetaminophen/HYDROcodone 325-5 MG Tab PO ONE ×2 (12:45→12:51)
--- NOTE | 2020-04-03 12:54 | EDM.PDOC ---
ED HPI GENERAL MEDICAL PROBLEM - General Chief Complaint: Trauma Stated Complaint: Fall with head injury Time Seen by Provider: 04/03/20 12:44 Source of Information: Reports: Patient, Family History Limitations: Reports: No Limitations - History of Present Illness INITIAL COMMENTS - FREE TEXT/NARRATIVE: Patient to the emergency department ambulatory where she was at work she tripped and fell coming from the gas pump striking the left side of her head and face and has a hematoma to the left forehead. Patient denies any neck or back pain. The patient has pain to the right shoulder, there is no abrasions contusions bruising or swelling to that area. The patient denies any loss of consciousness. The patient is on Pradaxa for atrial fibrillation. The patient denies any chest pain or shortness of breath denies any abdominal pain no nausea no vomiting she denies any left upper extremity pain she denies any hip or pelvis pain she denies any lower extremity pain other than she says that she does have some mild tenderness to the right knee but she is ambulating without any problems. A trauma code was called, the patient's GCS is 4-5-6 Onset: Today, Sudden Duration: Minutes: Location: Reports: Head, Face, Upper Extremity, Right, Lower Extremity, Right Quality: Reports: Ache Severity: Mild Improves with: Reports: None Worsens with: Reports: None Associated Symptoms: Reports: Headaches. 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) Right Shoulder Pain Score (Numeric/FACES): 8 Head Pain Score (Numeric/FACES): 8 - Related Data Allergies Allergy/AdvReac Type Severity Reaction Status Date / Time diltiazem HCl [From Cardizem] Allergy Rash Verified 04/03/20 12:54 Latex, Natural Rubber Allergy Itching Verified 04/03/20 12:54 simvastatin [From Zocor] Allergy Nausea Verified 04/03/20 12:54 denosumab [From Prolia] AdvReac Joint Pain Verified 04/03/20 12:54 Home Meds: Home Meds Acetaminophen [Tylenol Arthritis Pain] 650 mg PO Q4H PRN 01/21/14 [History] Cholecalciferol (Vitamin D3) [Vitamin D3] 2,000 unit PO DAILY 01/21/14 [History] Dabigatran Etexilate Mesylate [Pradaxa] 150 mg PO BID 01/21/14 [History] Digoxin 125 mcg PO DAILY 01/21/14 [History] Furosemide [Lasix] 40 mg PO DAILY 01/21/14 [History] Insulin Detemir [Levemir] 46 units SUBCUT QAM 01/21/14 [History] Lactobacillus Acidophilus [Probiotic] 1 each PO DAILY 01/21/14 [History] Levothyroxine Sodium 50 mcg PO DAILY 01/21/14 [History] Metoprolol Succinate [Toprol XL] 100 mg PO DAILY 01/21/14 [History] Quinapril HCl 10 mg PO BID 01/21/14 [History] SitaGLIPtin [Januvia] 100 mg PO DAILY 01/21/14 [History] Zinc Gluconate [Zinc] 30 mg PO DAILY 01/21/14 [History] metFORMIN [Glucophage] 1,000 mg PO BID 01/21/14 [History] atorvaSTATin [Lipitor] 40 mg PO DAILY 02/18/14 [History] Clopidogrel [Plavix] 75 mg PO DAILY 12/13/15 [History] Isosorbide Mononitrate [Imdur] 30 mg PO BEDTIME 06/29/16 [History] Lutein 20 mg PO DAILY 06/29/16 [History] Montelukast Sodium 10 mg PO DAILY 06/29/16 [History] Omeprazole 20 mg PO DAILY 06/29/16 [History] Insulin Detemir [Levemir] 50 units SUBCUT QPM 05/14/17 [History] Ferrous Sulfate 325 mg PO DAILY #30 tablet 05/13/19 [Rx] Aspirin [Ecotrin EC] 81 mg PO DAILY 06/30/19 [History] Cyclobenzaprine [Flexeril] 10 mg PO DAILY PRN 06/30/19 [History] Dexlansoprazole [Dexilant] 60 mg PO DAILY 06/30/19 [History] Folic Acid 1 mg PO DAILY 06/30/19 [History] methocarbamoL [Robaxin] 500 mg PO TID 10 Days #30 tab 04/03/20 [Rx] Past Medical History HEENT History: Reports: Impaired Vision Cardiovascular History: Reports: Heart Failure, High Cholesterol, Hypertension, Stents, Other (See Below) Other Cardiovascular History: ATRIAL ENLARGEMENT Respiratory History: Reports: COPD 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 History: Reports: 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: Musculoskeletal History: Reports: Arthritis, Back Pain, Chronic, Fibromyalgia Endocrine/Metabolic History: Reports: Diabetes, Type II, Hypothyroidism, Vitamin D Deficiency - Past Surgical History HEENT Surgical History: Reports: Other (See Below) Other HEENT Surgeries/Procedures: TRACHEA SURGERY Cardiovascular Surgical History: Reports: Coronary Artery Stent GI Surgical History: Reports: Cholecystectomy, Colonoscopy, EGD Female Surgical History: Reports: Section Musculoskeletal Surgical History: Reports: Other (See Below) Other Musculoskeletal Surgeries/Procedures:: BACK SURGERY Social & Family History - Family History Family Medical History: Noncontributory - Caffeine Use Caffeine Use: Reports: Coffee Review of Systems - Review of Systems Review Of Systems: See Below Constitutional: Reports: No Symptoms Eyes: Reports: No Symptoms Ears: Reports: No Symptoms Nose: Reports: No Symptoms Mouth/Throat: Reports: No Symptoms Respiratory: Reports: No Symptoms ED EXAM, GENERAL - Physical Exam Exam: See Below Course - Vital Signs Text/Narrative:: 1332 the patient was evaluated in the emergency department CT of the head, facial bones, and cervical spine does not show any acute abnormalities, x-ray of the right shoulder and right knee are also negative. However, the radiology reading still pending. The patient's CBC is normal, see the patient's general chemistries for details of the abnormalities. The patient's tetanus shot was updated, the patient was given [place] 5/325 mg 1 for pain. The patient will be discharged home she will be given Robaxin 500 mg 3 times daily for 10 days she will also be given a take-home pack of [place] x2. After that the patient will use Tylenol or Motrin as needed for pain. The patient is advised to increase her fluids and follow-up with her PCP this coming week. The patient is to return to the emergency department sooner if worse or any problems. The patient's GCS is 4-5-6 Last Recorded V/S: Last Vital Signs Temp 35.8 C L 04/03/20 13:17 Pulse 84 04/03/20 13:17 Resp 18 04/03/20 13:17 BP 180/72 H 04/03/20 13:17 Pulse Ox 98 04/03/20 13:17 - Orders/Labs/Meds Orders: Active Orders 24 hr Category Date Time Status Vaccines to be Administered [RC] PER UNIT ROUTINE Care 04/03/20 12:57 Active Cervical Spine wo Cont [CT] Stat Exams 04/03/20 12:46 Ordered Head wo Cont [CT] Stat Exams 04/03/20 12:46 Ordered Knee 3V Lt [CR] Stat Exams 04/03/20 12:51 Ordered Max Facial Sinus wo Cont [CT] Stat Exams 04/03/20 12:51 Ordered Shoulder Comp Rt [CR] Stat Exams 04/03/20 12:46 Ordered Labs: Laboratory Tests 04/03/20 04/03/20 04/03/20 Range/Units 01:00 01:00 01:00 WBC 11.8 H (5.0-10.0) 10^3/uL RBC 4.13 (4.00-5.50) 10^6/uL Hgb 11.8 L (12.0-16.0) g/dL Hct 36.0 L (37.0-47.0) % MCV 87.2 (82.0-94.0) fL MCH 28.6 (27.0-32.0) pg MCHC 32.8 L (33.0-38.0) g/dL RDW Coeff of Reji 14.1 (11.0-15.0) % Plt Count 332 (150-400) 10^3/uL Neut % (Auto) 70.4 (35-85) % Lymph % (Auto) 20.1 (10-55) % [place] % (Auto) 6.3 (0-16) % Eos % (Auto) 2.6 (0-5) % Baso % (Auto) 0.6 (0-3) % Neut # (Auto) 8.32 H (1.80-7.00) 10^3/uL Lymph # (Auto) 2.38 (1.00-4.80) 10^3/uL [place] # (Auto) 0.75 (0.00-0.80) 10^3/uL Eos # (Auto) 0.31 (0.00-0.45) 10^3/uL Baso # (Auto) 0.07 10^3/uL PT 12.1 (9.7-12.3) SEC INR 1.20 H (0.92-1.18) APTT 29.2 (23.2-32.3) SEC Sodium 140 (136-145) mEq/L Potassium 4.8 (3.5-5.0) mEq/L Chloride 103 (98-106) mEq/L Carbon Dioxide 26 (21-32) mmol/L BUN 24 H D (7-18) mg/dL Creatinine 1.0 (0.6-1.0) mg/dL Est Cr Clr Drug Dosing 50.41 mL/min Estimated GFR (MDRD) 55 L (>=60) mL/min Glucose 167 H D (75-99) mg/dL Calcium 10.2 H (8.4-10.1) mg/dL Meds: Medications Discontinued Medications Generic Name Dose Route Start Last Admin Trade Name Freq PRN Reason Stop Dose Admin Hydrocodone Bitart/Acetaminophen 1 tab 04/03/20 12:51 04/03/20 13:00 [place] 325-5 Mg PO 04/03/20 12:52 1 tab ONETIME ONE Administration Hydrocodone Bitart/Acetaminophen 2 packet 04/03/20 13:40 Take Home: Acetaminophen/Hydrocod, 2 Tab Pack PO 04/03/20 13:41 ONETIME ONE Diphtheria/Tetanus/Acell Pertussis 0.5 ml 04/03/20 12:57 04/03/20 13:03 Adacel IM 04/03/20 12:58 0.5 ml .ONCE ONE Administration Departure - Departure Time of Disposition: 13:35 Disposition: Home, Self-Care 01 Condition: Good Clinical Impression: Fall, Closed head injury, Contusion of face, Sprain of right shoulder, Right knee sprain - Discharge Information *PRESCRIPTION DRUG MONITORING PROGRAM REVIEWED*: Not Applicable *COPY OF PRESCRIPTION DRUG MONITORING REPORT IN PATIENT JORDY: Not Applicable Prescriptions: methocarbamoL [Robaxin] 500 mg PO TID 10 Days #30 tab Referrals: Praveen Ring PA-C [Primary Care Provider] - Forms: ED Department Discharge Additional Instructions: Rest Increase fluids Robaxin 500 mg 3 times a day for 10 days [place] 5/325 mg 1 every 4-6 hours as needed for pain Follow-up with your family doctor this week, call tomorrow for an appointment time Return to the emergency department sooner if worse or any problems Sepsis Event Note (ED) - Focused Exam Vital Signs: Vital Signs Temp Pulse Resp BP Pulse Ox 04/03/20 13:17 35.8 C L 84 18 180/72 H 98 04/03/20 12:44 35.8 C L 84 18 180/72 H 98 - Problem List & Annotations (1) Closed head injury SNOMED Code(s): 425631291476 Code(s): S09.90XA - UNSPECIFIED INJURY OF HEAD, INITIAL ENCOUNTER Status: Acute Priority: Medium Current Visit: Yes Qualifiers: Encounter type: initial encounter Qualified Code(s): S09.90XA - Unspecified injury of head, initial encounter (2) Contusion of face SNOMED Code(s): 355688230 Code(s): S00.83XA - CONTUSION OF OTHER PART OF HEAD, INITIAL ENCOUNTER Status: Acute Priority: Medium Current Visit: Yes Qualifiers: Encounter type: initial encounter Qualified Code(s): S00.83XA - Contusion of other part of head, initial encounter (3) Fall SNOMED Code(s): 9647181, 964318528 Code(s): W19.XXXA - UNSPECIFIED FALL, INITIAL ENCOUNTER Status: Acute Priority: Medium Current Visit: Yes Qualifiers: Encounter type: initial encounter Qualified Code(s): W19.XXXA - Unspecified fall, initial encounter (4) Right knee sprain SNOMED Code(s): 73398678 Code(s): S83.91XA - SPRAIN OF UNSPECIFIED SITE OF RIGHT KNEE, INITIAL ENCOUNTER Status: Acute Priority: Medium Current Visit: Yes Qualifiers: Encounter type: initial encounter (5) Sprain of right shoulder SNOMED Code(s): 7658553 Code(s): S43.401A - UNSPECIFIED SPRAIN OF RIGHT SHOULDER JOINT, INIT ENCNTR Status: Acute Priority: Medium Current Visit: Yes Qualifiers: Encounter type: initial encounter - Problem List Review Problem List Initiated/Reviewed/Updated: Yes - My Orders Last 24 Hours: My Active Orders 04/03/20 12:46 Cervical Spine wo Cont [CT] Stat Head wo Cont [CT] Stat Shoulder Comp Rt [CR] Stat 04/03/20 12:51 Knee 3V Lt [CR] Stat Max Facial Sinus wo Cont [CT] Stat 04/03/20 12:57 Vaccines to be Administered [RC] PER UNIT ROUTINE - Assessment/Plan Last 24 Hours: My Active Orders 04/03/20 12:46 Cervical Spine wo Cont [CT] Stat Head wo Cont [CT] Stat Shoulder Comp Rt [CR] Stat 04/03/20 12:51 Knee 3V Lt [CR] Stat Max Facial Sinus wo Cont [CT] Stat 04/03/20 12:57 Vaccines to be Administered [RC] PER UNIT ROUTINE Plan: The patient's past medical history, past surgical history, social history and past family medical history is reviewed see the nursing notes for details
[2020-04-03] MEDS ORDERED: Diphtheria,Pertussis(Acell),Tetanus Vaccine 0.5 ML Syringe IM ONE (12:57)
[2020-04-03 13:17] VITALS: BP 180/72; PULSE 84
[2020-04-03 13:30] LABS: PTT,PARTIAL THROMBOPLSTIN TIME 29.2 SEC (23.2-32.3)
[2020-04-03] MEDS ORDERED: Take Home: Acetaminophen/HYDROcodone 325-5 MG, 2 Tab Pack PO ONE (13:40)
== END 2020-04-03 13:40 | disposition home or self-care (01) ==
LOC: CC.ED 12:44
DX: S43.401A Unspecified sprain of right shoulder joint, initial encounter (principal); S83.91XA Sprain of unspecified site of right knee, initial encounter; S00.83XA Contusion of other part of head, initial encounter; I13.0 Hypertensive heart and chronic kidney disease with heart failure and stage 1 through stage 4 chronic kidney disease, or unspecified chronic kidney disease; I50.9 Heart failure, unspecified; N18.9 Chronic kidney disease, unspecified; E78.00 Pure hypercholesterolemia, unspecified; E11.22 Type 2 diabetes mellitus with diabetic chronic kidney disease; E03.9 Hypothyroidism, unspecified; M19.90 Unspecified osteoarthritis, unspecified site; Z79.4 Long term (current) use of insulin; Z79.02 Long term (current) use of antithrombotics/antiplatelets; Z79.899 Other long term (current) drug therapy; Z88.8 Allergy status to other drugs, medicaments and biological substances; Z23 Encounter for immunization; Z91.040 Latex allergy status; W01.0XXA Fall on same level from slipping, tripping and stumbling without subsequent striking against object, initial encounter; Y99.0 Civilian activity done for income or pay
CPT/HCPCS: 36415; 70450; 70486; 72125; 73030; 73562; 80048; 85025; 85610; 85730; 90471; 90715; 99284; A9270

== ENCOUNTER 2020-05-08 19:00 | Emergency (ER) | payer MEDICARE, BC ==
[2020-05-08] MEDS ORDERED: Ondansetron 4 MG Tab.DIS PO ONE (19:01)
[2020-05-08 19:05] VITALS: BP 125/62; PULSE 89
--- NOTE | 2020-05-08 19:11 | EDM.PDOC ---
ED HPI GENERAL MEDICAL PROBLEM - General Chief Complaint: General Stated Complaint: weakness Time Seen by Provider: 05/08/20 19:00 Source of Information: Reports: Patient History Limitations: Reports: No Limitations - History of Present Illness INITIAL COMMENTS - FREE TEXT/NARRATIVE: This patient is a 69 year old female that presents to the ER. Patient reports since having nausea. She reports that she has some diarrhea. She reports she has vomited a total of 2 times since , once today. She reports 4 episodes of loose stool diarrhea today. She reports that since she has felt generally weak. Patient reports she has had body aches since . Patient reports her talked her into coming in today instead of waiting to to be seen by her PCP tomorrow due to her vomiting and diarrhea today. The patient ambulated without difficulty from truck to the ER room stretcher. Onset Date: 05/05/20 Duration: Day(s): (3) Severity: Mild Improves with: Reports: None Worsens with: Reports: None Associated Symptoms: Reports: Nausea/Vomiting, Weakness. Denies: Confusion, Chest Pain, Cough, cough w sputum, Diaphoresis, Fever/Chills, Headaches, Loss of Appetite, Malaise, Rash, Seizure, Shortness of Breath, Syncope Abdomen Pain Score (Numeric/FACES): 6 - Related Data Allergies Allergy/AdvReac Type Severity Reaction Status Date / Time diltiazem HCl [From Cardizem] Allergy Rash Verified 05/08/20 19:05 Latex, Natural Rubber Allergy Itching Verified 05/08/20 19:05 denosumab [From Prolia] AdvReac Joint Pain Verified 05/08/20 19:05 simvastatin [From Zocor] AdvReac Nausea Verified 05/08/20 19:05 Home Meds: Home Meds Acetaminophen [Tylenol Arthritis Pain] 650 mg PO Q4H PRN 01/21/14 [History] Cholecalciferol (Vitamin D3) [Vitamin D3] 2,000 unit PO DAILY 01/21/14 [History] Dabigatran Etexilate Mesylate [Pradaxa] 150 mg PO BID 01/21/14 [History] Digoxin 125 mcg PO DAILY 01/21/14 [History] Furosemide [Lasix] 40 mg PO DAILY 01/21/14 [History] Insulin Detemir [Levemir] 46 units SUBCUT QAM 01/21/14 [History] Lactobacillus Acidophilus [Probiotic] 1 each PO DAILY 01/21/14 [History] Levothyroxine Sodium 50 mcg PO DAILY 01/21/14 [History] Metoprolol Succinate [Toprol XL] 100 mg PO DAILY 01/21/14 [History] Quinapril HCl 10 mg PO BID 01/21/14 [History] SitaGLIPtin [Januvia] 100 mg PO DAILY 01/21/14 [History] Zinc Gluconate [Zinc] 30 mg PO DAILY 01/21/14 [History] metFORMIN [Glucophage] 1,000 mg PO BID 01/21/14 [History] atorvaSTATin [Lipitor] 40 mg PO DAILY 02/18/14 [History] Clopidogrel [Plavix] 75 mg PO DAILY 12/13/15 [History] Isosorbide Mononitrate [Imdur] 30 mg PO BEDTIME 06/29/16 [History] Lutein 20 mg PO DAILY 06/29/16 [History] Montelukast Sodium 10 mg PO DAILY 06/29/16 [History] Omeprazole 20 mg PO DAILY 06/29/16 [History] Insulin Detemir [Levemir] 50 units SUBCUT QPM 05/14/17 [History] Ferrous Sulfate 325 mg PO DAILY #30 tablet 05/13/19 [Rx] Aspirin [Ecotrin EC] 81 mg PO DAILY 06/30/19 [History] Cyclobenzaprine [Flexeril] 10 mg PO DAILY PRN 06/30/19 [History] Dexlansoprazole [Dexilant] 60 mg PO DAILY 06/30/19 [History] Folic Acid 1 mg PO DAILY 06/30/19 [History] methocarbamoL [Robaxin] 500 mg PO TID 10 Days #30 tab 04/03/20 [Rx] Ondansetron [Zofran ODT] 4 mg PO Q6H PRN #12 tab.dis 05/08/20 [Rx] Past Medical History HEENT History: Reports: Impaired Vision Cardiovascular History: Reports: Heart Failure, High Cholesterol, Hypertension, Stents, Other (See Below) Other Cardiovascular History: ATRIAL ENLARGEMENT Respiratory History: Reports: COPD 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 History: Reports: 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: Musculoskeletal History: Reports: Arthritis, Back Pain, Chronic, Fibromyalgia Endocrine/Metabolic History: Reports: Diabetes, Type II, Hypothyroidism, Vitamin D Deficiency - Past Surgical History HEENT Surgical History: Reports: Other (See Below) Other HEENT Surgeries/Procedures: TRACHEA SURGERY Cardiovascular Surgical History: Reports: Coronary Artery Stent GI Surgical History: Reports: Cholecystectomy, Colonoscopy, EGD Female Surgical History: Reports: Section Musculoskeletal Surgical History: Reports: Other (See Below) Other Musculoskeletal Surgeries/Procedures:: BACK SURGERY Social & Family History - Family History Family Medical History: Noncontributory - Caffeine Use Caffeine Use: Reports: Coffee ED ROS GENERAL - Review of Systems Review Of Systems: See Below Constitutional: Reports: No Symptoms, Malaise, Weakness. Denies: Fever, Chills, Decreased Appetite (she reports eating and drinking) HEENT: Reports: Rhinitis, Sinus Problem Respiratory: Reports: No Symptoms. Denies: Shortness of Breath Cardiovascular: Reports: No Symptoms. Denies: Chest Pain, Dyspnea on Exertion, Edema, Lightheadedness, Palpitations, Syncope Endocrine: Reports: No Symptoms GI/Abdominal: Reports: Diarrhea, Nausea, Vomiting. Denies: Abdominal Pain, Black Stool, Bloody Stool : Reports: No Symptoms Musculoskeletal: Reports: Other (body aches). Denies: Neck Pain Skin: Reports: No Symptoms Neurological: Reports: No Symptoms. Denies: Dizziness, Headache, Numbness, Seizure, Syncope, Tingling, Trouble Speaking, Difficulty Walking, Weakness, Change in Speech, Gait Disturbance Psychiatric: Reports: No Symptoms Hematologic/Lymphatic: Reports: No Symptoms Immunologic: Reports: No Symptoms ED EXAM, GENERAL - Physical Exam Exam: See Below Exam Limited By: No Limitations General Appearance: Alert, WD/WN, No Apparent Distress Eye Exam: Bilateral Eye: Normal Inspection, PERRL Ears: Normal External Exam, Normal Canal, Hearing Grossly Normal, Normal TMs Ear Exam: Bilateral Ear: Auricle Normal, Canal Normal, TM normal Nose: Normal Inspection, Normal Mucosa, No Blood Throat/Mouth: Normal Inspection, Normal Lips, Normal Teeth, Normal Gums, Normal Oropharynx, Normal Voice, No Airway Compromise Head: Atraumatic, Normocephalic Neck: Normal Inspection, Supple, Non-Tender, Full Range of Motion Respiratory/Chest: No Respiratory Distress, Lungs Clear, Normal Breath Sounds, No Accessory Muscle Use Cardiovascular: Normal Peripheral Pulses, Regular Rate, Rhythm, No Edema, No Gallop, No JVD, No Murmur, No Rub Peripheral Pulses: 2+: Radial (L), Radial (R), Posterior Tibial (L), Posterior Tibial (R) GI/Abdominal: Soft, Non-Tender, No Organomegaly, No Distention, No Abnormal Bruit, No Mass, Pelvis Stable, Abnormal Bowel Sounds (mildly hyperactive), Other (vertical surgical scar old. ). No: Guarding, Rigid, Rebound, Tender (Female) Exam: Deferred Rectal (Female) Exam: Deferred Back Exam: Normal Inspection, Full Range of Motion. No: CVA Tenderness (L), CVA Tenderness (R) Extremities: Normal Inspection, Normal Range of Motion, Non-Tender, No Pedal Edema, Normal Capillary Refill Neurological: Alert, Oriented, Normal Cognition, Normal Gait, No Motor/Sensory Deficits Psychiatric: Depressed Mood, Flat Affect, Other (affect is chronic. Patient baseline. ) Skin Exam: Warm, Dry, Intact, Normal Color, No Rash Lymphatic: No Adenopathy Course - Vital Signs Last Recorded V/S: Last Vital Signs Temp 99.3 F 05/08/20 19:01 Pulse 89 05/08/20 19:01 Resp 16 05/08/20 19:01 BP 125/62 05/08/20 19:01 Pulse Ox 95 05/08/20 19:01 - Orders/Labs/Meds Orders: Active Orders 24 hr Category Date Time Status UA W/MICROSCOPIC [URIN] Stat Lab 05/08/20 19:03 Ordered Ondansetron [Take Home: Ondansetron ODT 4 MG, 2 Tab Med 05/08/20 19:32 Once Pack] 1 packet PO ONETIME ONE Sodium Chloride 0.9% [Normal Saline] 500 ml Med 05/08/20 19:31 Ordered IV .BOLUS Isolation [COMM] Routine Oth 05/08/20 19:03 Active Medication Orders Sodium Chloride (Normal Saline) 500 mls @ 1,000 mls/hr IV .BOLUS ONE Stop: 05/08/20 19:42 Ondansetron HCl (Take Home: Ondansetron Odt 4 Mg, 2 Tab Pack) 1 packet PO ONETIME ONE Stop: 05/08/20 19:33 Labs: Laboratory Tests 05/08/20 05/08/20 05/08/20 Range/Units 18:43 19:10 19:10 WBC 5.6 (5.0-10.0) 10^3/uL RBC 3.94 L (4.00-5.50) 10^6/uL Hgb 11.2 L (12.0-16.0) g/dL Hct 34.1 L (37.0-47.0) % MCV 86.5 (82.0-94.0) fL MCH 28.4 (27.0-32.0) pg MCHC 32.8 L (33.0-38.0) g/dL RDW Coeff of Reji 14.9 (11.0-15.0) % Plt Count 182 (150-400) 10^3/uL Neut % (Auto) 78.9 (35-85) % Lymph % (Auto) 12.8 (10-55) % [place] % (Auto) 7.7 (0-16) % Eos % (Auto) 0.2 (0-5) % Baso % (Auto) 0.4 (0-3) % Neut # (Auto) 4.43 (1.80-7.00) 10^3/uL Lymph # (Auto) 0.72 L (1.00-4.80) 10^3/uL [place] # (Auto) 0.43 (0.00-0.80) 10^3/uL Eos # (Auto) 0.01 (0.00-0.45) 10^3/uL Baso # (Auto) 0.02 10^3/uL Sodium 132 L (136-145) mEq/L Potassium 4.2 (3.5-5.0) mEq/L Chloride 96 L (98-106) mEq/L Carbon Dioxide 26 (21-32) mmol/L BUN 23 H (7-18) mg/dL Creatinine 0.8 (0.6-1.0) mg/dL Est Cr Clr Drug Dosing 63.01 mL/min Estimated GFR (MDRD) > 60 (>=60) mL/min Glucose 118 H D (75-99) mg/dL Calcium 9.6 (8.4-10.1) mg/dL Total Bilirubin 1.0 (0.0-1.0) mg/dL AST 44 H (15-37) U/L ALT 32 (12-78) U/L Alkaline Phosphatase 71 (46-116) U/L Total Protein 6.8 (6.4-8.2) g/dL Albumin 2.7 L (3.4-5.0) g/dL Amylase 24 L (25-115) U/L Lipase 86 (73-393) U/L COVID-19 (THOM) Negative (NEGATIVE) Meds: Medications Generic Name Dose Route Start Last Admin Trade Name Freq PRN Reason Stop Dose Admin Sodium Chloride 500 mls @ 1,000 mls/hr 05/08/20 19:31 Normal Saline IV 05/08/20 19:42 .BOLUS ONE Ondansetron HCl 1 packet 05/08/20 19:32 Take Home: Ondansetron Odt 4 Mg, 2 Tab Pack PO 05/08/20 19:33 ONETIME ONE Discontinued Medications Generic Name Dose Route Start Last Admin Trade Name Freq PRN Reason Stop Dose Admin Sodium Chloride 1,000 mls @ 1,000 mls/hr 05/08/20 19:13 05/08/20 19:18 Normal Saline IV 05/08/20 20:12 1,000 mls/hr .BOLUS ONE Administration Ondansetron HCl 4 mg 05/08/20 19:13 05/08/20 19:18 Zofran IVPUSH 05/08/20 19:14 4 mg NOW STA Administration Departure - Departure Time of Disposition: 19:35 Disposition: Home, Self-Care 01 Condition: Fair Clinical Impression: Influenza B - Discharge Information *PRESCRIPTION DRUG MONITORING PROGRAM REVIEWED*: Not Applicable *COPY OF PRESCRIPTION DRUG MONITORING REPORT IN PATIENT JORDY: Not Applicable Prescriptions: Ondansetron [Zofran ODT] 4 mg PO Q6H PRN #12 tab.dis PRN Reason: Nausea/Vomiting Instructions: Influenza, Adult, [id number] Referrals: PCP,None [Primary Care Provider] - Forms: ED Department Discharge Additional Instructions: Followup with your primary care provider as needed Return to the ER for worsening of condition or any emergent concerns Increase fluid intake at home Tylenol for fever or aches as needed Zofran 4mg 1 under the tongue every 6 hours as needed for nausea or vomiting #12 no refill #2 take home Sepsis Event Note (ED) - Evaluation Sepsis Screening Result: No Definite Risk - Focused Exam Vital Signs: Vital Signs Temp Pulse Resp BP Pulse Ox 05/08/20 19:01 99.3 F 89 16 125/62 95 - My Orders Last 24 Hours: My Active Orders 05/08/20 19:03 UA W/MICROSCOPIC [URIN] Stat Isolation [COMM] Routine 05/08/20 19:31 Sodium Chloride 0.9% [Normal Saline] 500 ml IV .BOLUS 05/08/20 19:32 Ondansetron [Take Home: Ondansetron ODT 4 MG, 2 Tab Pack] 1 packet PO ONETIME ONE - Assessment/Plan Last 24 Hours: My Active Orders 05/08/20 19:03 UA W/MICROSCOPIC [URIN] Stat Isolation [COMM] Routine 05/08/20 19:31 Sodium Chloride 0.9% [Normal Saline] 500 ml IV .BOLUS 05/08/20 19:32 Ondansetron [Take Home: Ondansetron ODT 4 MG, 2 Tab Pack] 1 packet PO ONETIME ONE Plan: PLEASE SEE RN NOTE FOR PFSH.
[2020-05-08] MEDS: Sodium Chloride 0.9% 1,000 ML IV ONE (19:18)
[2020-05-08] MEDS: Ondansetron 4 MG/2 ML SDV IVPUSH STA (19:18)
[2020-05-08 19:26] LABS: CHLORIDE,CL 96 mEq/L (98-106); SODIUM,NA 132 mEq/L (136-145)
[2020-05-08] MEDS: Sodium Chloride 0.9% 500 ML IV ONE (19:32)
[2020-05-08] MEDS: Take Home: Ondansetron 4 MG Tab.DIS, 2 Tab Pack PO ONE (19:44)
== END 2020-05-08 20:00 | disposition home or self-care (01) ==
LOC: CC.ED 19:00
DX: J10.1 Influenza due to other identified influenza virus with other respiratory manifestations (principal); I13.0 Hypertensive heart and chronic kidney disease with heart failure and stage 1 through stage 4 chronic kidney disease, or unspecified chronic kidney disease; E11.22 Type 2 diabetes mellitus with diabetic chronic kidney disease; N18.9 Chronic kidney disease, unspecified; I50.9 Heart failure, unspecified; E78.00 Pure hypercholesterolemia, unspecified; M19.90 Unspecified osteoarthritis, unspecified site; E03.9 Hypothyroidism, unspecified; Z20.828 Contact with and (suspected) exposure to other viral communicable diseases; Z95.5 Presence of coronary angioplasty implant and graft; Z91.040 Latex allergy status; Z88.8 Allergy status to other drugs, medicaments and biological substances; Z79.02 Long term (current) use of antithrombotics/antiplatelets; Z79.899 Other long term (current) drug therapy; Z79.82 Long term (current) use of aspirin; Z79.4 Long term (current) use of insulin; Z98.890 Other specified postprocedural states
CPT/HCPCS: 36415; 80053; 82150; 83690; 85025; 87804; 96361; 96374; 99284; A9270; J2405; J7030; U0002

== ENCOUNTER 2020-05-16 14:54 | Inpatient (IN) | payer MEDICARE, BC ==
[2020-05-16 15:32] LABS: CHLORIDE,CL 101 mEq/L (98-106); SODIUM,NA 138 mEq/L (136-145)
[2020-05-16] MEDS ORDERED: Ondansetron 4 MG/2 ML SDV IV PRN (16:18)
[2020-05-16] MEDS ORDERED: Acetaminophen 325 MG Tab PO PRN (16:18)
[2020-05-16] MEDS ORDERED: traMADol 50 MG Tab PO PRN (16:49)
[2020-05-16] MEDS: Sodium Chloride 0.9% 1,000 ML IV SCH (16:56)
[2020-05-16] MEDS: Pantoprazole 40 MG Vial IVPUSH SCH (16:58)
[2020-05-16] MEDS ORDERED: Docusate Sodium 100 MG Cap PO PRN (18:00)
[2020-05-16] MEDS ORDERED: 50% Dextrose in Water 50 ML Syringe IVPUSH STA (18:27)
[2020-05-16] MEDS: Ferrous Sulfate 324 MG Tab.EC PO SCH (18:58)
[2020-05-16] MEDS: METFORMIN 1000 MG PO SCH (19:08)
[2020-05-16] MEDS: INSULIN DETEMIR 100 UNIT/ML SUBCUT SCH (20:19)
[2020-05-16] MEDS: DABIGATRAN ETEXILATE 150 MG PO SCH (20:19)
[2020-05-17] MEDS: Sodium Chloride 0.9% 1,000 ML IV SCH (02:50)
[2020-05-17] MEDS: LEVOTHYROXINE 50 MCG PO SCH (06:36)
[2020-05-17] MEDS: DABIGATRAN ETEXILATE 150 MG PO SCH (07:22)
[2020-05-17] MEDS: Ferrous Sulfate 324 MG Tab.EC PO SCH ×2 (07:22→16:48)
[2020-05-17] MEDS: DIGOXIN 250 MCG PO SCH (07:24)
[2020-05-17] MEDS: Furosemide 40 MG Tab **PT OWN MED PO SCH (07:24)
[2020-05-17] MEDS: METFORMIN 1000 MG PO SCH ×2 (07:26→17:06)
[2020-05-17] MEDS: SITAGLIPTIN 100 MG PO SCH (07:26)
[2020-05-17] MEDS: Cyanocobalamin (Vitamin B12) 1,000 MCG Tab PO SCH (07:27)
[2020-05-17] MEDS: Metoprolol Succinate 100 MG Tab.ER PO SCH (07:27)
[2020-05-17 07:49] LABS: CHLORIDE,CL 102 mEq/L (98-106); SODIUM,NA 138 mEq/L (136-145)
[2020-05-17] MEDS ORDERED: Clopidogrel 75 MG Tab **PT OWN MED PO SCH (08:00)
[2020-05-17] MEDS: INSULIN DETEMIR 100 UNIT/ML SUBCUT SCH ×2 (09:54→20:01)
[2020-05-17] MEDS: FOLIC ACID 1 MG PO SCH (15:38)
[2020-05-17] MEDS ORDERED: cefTRIAXone 1 GM Vial IVPUSH SCH (16:00)
--- NOTE | 2020-05-17 16:04 | PN ---
DATE: 05/17/2020 S: Teagan is a pleasant 69-year-old female who initially presented to the clinic yesterday with just not feeling well. She has been complaining of generalized weakness with a recent fall at home. She was experiencing some dizziness and headache as well. Laboratory work yesterday did show a hemoglobin at 9.9, white blood count was within normal limits. CMP was unremarkable. Cardiac workup was negative. CRP was elevated at 6.1. She has been getting IV fluids. We did order for occult blood screen x3. She states that she is feeling better today. Denies any significant weakness per se. States that overall she is feeling better. Denies any nausea presently. Has had breakfast this morning. O: VITAL SIGNS: Blood pressure 108/42, O2 is 96% on room air, respiratory rate of 16, temp 98.5, and pulse of 62. GENERAL: Pleasant and cooperative female, does not really appear to be in any acute distress, not acutely ill. She is in better spirits today. HEENT: Grossly unremarkable. LUNGS: Clear to auscultation. No adventitious sounds. CARDIAC: Regular rate and rhythm. No murmurs are noted. ABDOMEN: Soft. Bowel sounds present, normoactive. No organomegaly. No guarding or rigidity noted. EXTREMITIES: No pedal edema is noted. ASSESSMENT: 1. GENERALIZED WEAKNESS, IMPROVED. 2. POSITIVE OCCULT BLOOD SCREEN. 3. DIZZINESS, IMPROVED. 4. TYPE 2 DIABETES. P: Hemoglobin is 9.3 today; however, she has been getting IV fluids. We will go ahead and discontinue her IV fluids as she is able to drink fluids okay and is feeling much better. CRP did improve to 3.9 from 6[address] Branch in regard to Teagan's condition. We will go ahead and get an EGD in the morning. She did have a colonoscopy last year. The patient verbalized complete understanding of this. Again, we will closely monitor, get EGD in the morning and if hemoglobin is stable, we will plan for discharge. HEVER/JACKIE /[id number]
[2020-05-17] MEDS: Pantoprazole 40 MG Vial IVPUSH SCH (16:47)
[2020-05-17] MEDS: QUINAPRIL 10 MG PO SCH (19:57)
[2020-05-17] MEDS: ISOSORBIDE MONONITRATE 30 MG PO SCH (19:57)
[2020-05-17] MEDS ORDERED: MONTELUKAST 10 MG PO SCH (20:00)
[2020-05-17] MEDS ORDERED: ATORVASTATIN 40 MG PO SCH (20:00)
[2020-05-18] MEDS ORDERED: 50% Dextrose in Water 50 ML Syringe IVPUSH ONE (02:30)
[2020-05-18] MEDS: LEVOTHYROXINE 50 MCG PO SCH (06:22)
[2020-05-18] MEDS ORDERED: Lactated Ringers 1,000 ML IV SCH (08:00)
[2020-05-18] MEDS ORDERED: Meperidine 50 MG/ML Vial ONE (08:20)
[2020-05-18] MEDS ORDERED: Midazolam 1 MG/ML 2 ML SDV ONE (08:21)
[2020-05-18] MEDS ORDERED: Benzocaine 20% Oral Spray 59.2 ML Canister MUCMEM ONE (08:45)
[2020-05-18] MEDS ORDERED: Meperidine PF 25 MG/ML SDV IVPUSH ONE (08:48)
[2020-05-18] MEDS ORDERED: Midazolam 1 MG/ML 2 ML SDV IV ONE (08:49)
[2020-05-18 09:46] LABS: CHLORIDE,CL 103 mEq/L (98-106); SODIUM,NA 138 mEq/L (136-145)
[2020-05-18] MEDS: INSULIN DETEMIR 100 UNIT/ML SUBCUT SCH (10:48)
[2020-05-18] MEDS: Ferrous Sulfate 324 MG Tab.EC PO SCH ×2 (11:01→16:54)
[2020-05-18] MEDS: FOLIC ACID 1 MG PO SCH (11:02)
[2020-05-18] MEDS: DIGOXIN 250 MCG PO SCH (11:02)
[2020-05-18] MEDS: ISOSORBIDE MONONITRATE 30 MG PO SCH (11:02)
[2020-05-18] MEDS: Furosemide 40 MG Tab **PT OWN MED PO SCH (11:03)
[2020-05-18] MEDS: QUINAPRIL 10 MG PO SCH ×2 (11:04→19:57)
[2020-05-18] MEDS: SITAGLIPTIN 100 MG PO SCH (11:04)
[2020-05-18] MEDS: Metoprolol Succinate 100 MG Tab.ER PO SCH (11:05)
[2020-05-18] MEDS: Cyanocobalamin (Vitamin B12) 1,000 MCG Tab PO SCH (11:05)
[2020-05-18] MEDS: METFORMIN 1000 MG PO SCH (12:00)
--- NOTE | 2020-05-18 12:17 | OR ---
DATE OF OPERATION: 05/18/2020 PREOPERATIVE DIAGNOSIS: IRON-DEFICIENCY ANEMIA WITH HEME-POSITIVE STOOL. POSTOPERATIVE DIAGNOSIS: IRON-DEFICIENCY ANEMIA WITH HEME-POSITIVE STOOL. SURGEON: Jonnathan Branch MD PROCEDURE: DIAGNOSTIC EGD. ANESTHESIA: Conscious sedation with continuous O2 saturation monitoring and nurse assist. COMPLICATIONS: None. SPECIMEN: None. FINDINGS: 1. Full-length EGD. 2. Mild and chronic-appearing antral gastritis. 3. No active bleeding, signs of ulceration, or erosion. RECOMMENDATIONS: Continue medical followup. INDICATIONS: The patient was admitted by Ryne Ring for weakness. It turns out she has a UTI. She does have a history of chronic iron deficiency and anemia. She did have a heme-positive stool on admission. He asked for diagnostic EGD. DESCRIPTION OF PROCEDURE: The patient was prepped and draped, placed in the left lateral decubitus position. A lubricated Olympus colonoscope was inserted over a bit, advanced to cricopharyngeus area, and easily intubated into the esophagus. The esophageal lining was benign in its entire course. The Z-line was crisp and sharp at 40 cm. No spontaneous reflux seen. There was no distal esophagitis, stricturing, ulceration, or Smith's changes. The scope was advanced into the stomach, through the pylorus, and into the second portion of the duodenum. This and the duodenal bulb were unremarkable. The scope was brought back into the stomach and retroflexed. The upper fundus and cardia were benign. Upon straightening, the rest of the fundus was also unremarkable. Antrum had some changes of chronic and mild gastritis without any active ulceration, erosion, or bleeding sites. The air was then suctioned and the scope removed without complication. BRENNAN/JACKIE /[id number]
[2020-05-18] MEDS ORDERED: Folic Acid 1 MG Tab PO SCH (12:47)
[2020-05-18] MEDS ORDERED: Furosemide 40 MG Tab PO SCH (12:48)
[2020-05-18] MEDS ORDERED: Levothyroxine 50 MCG Tab PO SCH (12:49)
--- NOTE | 2020-05-18 13:13 | PN ---
DATE: 05/18/2020 S: Teagan is a 69-year-old female who initially presented to the clinic on 05/16/2020, just not feeling well, some dizziness. She was admitted to the hospital, where her hemoglobin did show 9.9 and did drop to 9.3 on 05/17/2020. I did set up for EGD this morning, which she underwent EGD by Dr. Jonnathan dyer. No source of bleed was noted. She has had two positive occult blood screens. Hemoglobin continues to slightly decline, it is 8.9 today. She is getting iron supplementation. She overall today, however, states that she is feeling a lot better. It was noted that she did have UTI on admission. She was started on IV Rocephin as well. She denies any dizziness. States overall that she is actually feeling a lot better. Nursing staff has concerns that she was having some low blood sugars throughout the evening. O: VITAL SIGNS: Blood pressure 146/59, O2 is 97% on room air, respiratory rate 18, pulse is 62, and temp 97.8. GENERAL: Pleasant and cooperative female. She is sitting up, having lunch this afternoon. Does not appear to be in any acute distress nor acutely ill. HEENT: Grossly unremarkable. LUNGS: Clear to auscultation. I did not hear any adventitious sounds. CARDIAC: Regular rate and rhythm. No murmurs are noted. No pedal edema is noted. ABDOMEN: Soft. Bowel sounds are present. Normoactive. No organomegaly. No guarding or rigidity noted. ASSESSMENT: 1. GASTROINTESTINAL BLEED. 2. GENERALIZED WEAKNESS, RESOLVED. 3. DIZZINESS, RESOLVED. 4. URINARY TRACT INFECTION. P: Again, we will get daily hemoglobins. The patient was switched from observation status to acute status. We will hold her Pradaxa and Plavix at this point in time. Again, EGD showed no source of any bleed. We will closely monitor her with telemetry as well. The patient verbalized understanding. We will decrease her insulin Levemir dose in the evening from 50 units to 40 units to see if we can get away from having some low blood sugars throughout the night. The patient, again, did verbalize understanding and is in agreement. We will continue with the IV Rocephin as well. HEVER/JACKIE /[id number]
[2020-05-18] MEDS ORDERED: Montelukast 10 MG Tab PO SCH (13:19)
[2020-05-18] MEDS ORDERED: Meclizine 12.5 MG Tab PO PRN (13:26)
[2020-05-18] MEDS ORDERED: Cyclobenzaprine 10 MG Tab PO PRN (13:30)
[2020-05-18] MEDS ORDERED: METHOCARBAMOL 500 MG PO SCH (14:00)
[2020-05-18] MEDS: metFORMIN 500 MG Tab PO SCH (16:54)
[2020-05-18] MEDS: Pantoprazole 40 MG Vial IVPUSH SCH (16:55)
[2020-05-18] MEDS ORDERED: cefTRIAXone 1 GM Vial IVPUSH SCH (17:00)
[2020-05-18] MEDS: Isosorbide Mononitrate 30 MG Tab.ER PO SCH (19:57)
[2020-05-18] MEDS ORDERED: atorvaSTATin 20 MG Tab PO SCH (20:00)
[2020-05-19] MEDS: Isosorbide Mononitrate 30 MG Tab.ER PO SCH (07:22)
[2020-05-19] MEDS: Ferrous Sulfate 324 MG Tab.EC PO SCH (07:22)
[2020-05-19] MEDS: Cyanocobalamin (Vitamin B12) 1,000 MCG Tab PO SCH (07:22)
[2020-05-19] MEDS: metFORMIN 500 MG Tab PO SCH (07:22)
[2020-05-19] MEDS: QUINAPRIL 10 MG PO SCH (07:24)
[2020-05-19] MEDS: SITAGLIPTIN 100 MG PO SCH (07:25)
[2020-05-19 07:28] VITALS: BP 135/55; PULSE 64
[2020-05-19] MEDS: INSULIN DETEMIR 100 UNIT/ML SUBCUT SCH (07:51)
[2020-05-19 07:52] LABS: CHLORIDE,CL 101 mEq/L (98-106); SODIUM,NA 137 mEq/L (136-145)
[2020-05-19] MEDS ORDERED: Metoprolol Succinate 100 MG Tab.ER PO SCH (08:00)
[2020-05-19] MEDS ORDERED: Digoxin 125 MCG Tab PO SCH (08:00)
--- NOTE | 2020-05-19 09:25 | PCM.DCSUM1 ---
Discharge Summary - Hospital Course Free Text/Narrative:: Teagan is a 69 year old female who presented to clinic to see Ryne Ring due to not feeling well. had felt weak and had difficulty walking/poor balance. Was s/p influenza B and thought she was feeling better from that but developed new symptoms again. Did fall at home. No LOC or head trauma. Had not had much of an appetite. Nauseated. No diarrhea or vomiting. WBC was normal at 8. Hemoglobin 9.9. CMP relatively normal. CRP of 6.1. UA positive. Admitted for observation. Obtain iron panel, serial FOB and repeat labs. Diagnosis: Stroke: No Modified [place] Scale: No Symptoms at All Modified [place] Scale Score: 0 - Discharge Data Discharge Date: 05/19/20 Discharge Disposition: Home, Self-Care 01 Condition: Good - Referral to Home Health Primary Care Physician: Praveen Ring PA-C - Patient Summary/Data Operative Procedure(s) Performed: EGD- see report Complications: none Consults: Consultations 05/17/20 10:41 Consult to Physician [CONS] Routine Hospital Course: Patient is feeling better this am. Feels much less weak and dizzy than on admit. Is ambulating per self now and feels balance is improved. Hemoglobin did drop during stay, down to 8.9. FOBs positive x2. EGD was done without any notable bleeding or ulceration. Did have colonoscopy one year ago that was normal. Iron panel was done, results show a ferritin of 35, total of 33. Does continue on her iron supplementation. Urine culture was positive for klebsiella, covered with Rocephin. Will resume use of Pradaxa and Plavix as hemoglobin stable this am at 9. Will discharge home today. Ceftin 250 mg BID for the next 7 days. follow up with Ryne Ring on Saturday, lab prior to appointment as may need to consider iron infusion. - Patient Instructions Diet: Usual Diet as Tolerated Activity: As Tolerated - Discharge Plan *PRESCRIPTION DRUG MONITORING PROGRAM REVIEWED*: No *COPY OF PRESCRIPTION DRUG MONITORING REPORT IN PATIENT JORDY: No Prescriptions/Med Rec: Cefuroxime [Ceftin] 250 mg PO BID #14 tab Home Medications: Home Meds Cholecalciferol (Vitamin D3) [Vitamin D3] 1,000 unit PO DAILY 01/21/14 [History] Dabigatran Etexilate Mesylate [Pradaxa] 150 mg PO BID 01/21/14 [History] Digoxin 125 mcg PO DAILY 01/21/14 [History] Furosemide [Lasix] 40 mg PO DAILY 01/21/14 [History] Insulin Detemir [Levemir] 46 units SUBCUT QAM 01/21/14 [History] Lactobacillus Acidophilus [Probiotic] 1 each PO DAILY 01/21/14 [History] Levothyroxine Sodium 50 mcg PO DAILY 01/21/14 [History] Metoprolol Succinate [Toprol XL] 100 mg PO DAILY 01/21/14 [History] Quinapril HCl 10 mg PO BID 01/21/14 [History] SitaGLIPtin [Januvia] 100 mg PO DAILY 01/21/14 [History] metFORMIN [Glucophage] 1,000 mg PO BID 01/21/14 [History] atorvaSTATin [Lipitor] 40 mg PO DAILY 02/18/14 [History] Isosorbide Mononitrate [Imdur] 30 mg PO BID 06/29/16 [History] Montelukast Sodium 10 mg PO DAILY 06/29/16 [History] Insulin Detemir [Levemir] 50 units SUBCUT QPM 05/14/17 [History] Aspirin [Ecotrin EC] 81 mg PO DAILY 06/30/19 [History] Cyclobenzaprine [Flexeril] 10 mg PO DAILY PRN 06/30/19 [History] Dexlansoprazole [Dexilant] 60 mg PO DAILY 06/30/19 [History] Folic Acid 1,000 mcg PO DAILY 06/30/19 [History] Alendronate Sodium [Fosamax] 70 mg PO WEEKLY 05/16/20 [History] Ascorbate Calcium [Vitamin C] 500 mg PO DAILY 05/16/20 [History] Calcium Carbonate [Calcium] 600 mg PO DAILY 05/16/20 [History] Cyanocobalamin (Vitamin B12) [Vitamin B12] 2,000 mcg PO DAILY 05/16/20 [History] Ferrous Sulfate 325 mg PO BID 05/16/20 [History] Magnesium 1,000 mg PO DAILY 05/16/20 [History] Nitroglycerin [Nitrostat] 0.5 mg SL ASDIRECTED 05/16/20 [History] Ondansetron [Zofran ODT] 4 mg SL Q6HR PRN 05/16/20 [History] methocarbamoL [Methocarbamol] 500 mg PO TID 05/16/20 [History] traMADol HCl [Tramadol HCl] 50 mg PO Q6HR PRN 05/16/20 [History] Clopidogrel Bisulfate [Clopidogrel] 75 mg PO DAILY 05/17/20 [History] Cefuroxime [Ceftin] 250 mg PO BID #14 tab 05/19/20 [Rx] Referrals: Praveen Ring PA-C [Primary Care Provider] - (Follow up with Ryne on Saturday. Lab prior to appointment.) - Discharge Summary/Plan Comment DC Time >30 min.: No - General Info Date of Service: 05/19/20 Admission Dx/Problem (Free Text: GI Bleed UTI Functional Status: Reports: Pain Controlled, Tolerating Diet, Ambulating - Review of Systems General: Reports: Weakness HEENT: Reports: No Symptoms Pulmonary: Denies: Shortness of Breath, Cough Cardiovascular: Denies: Chest Pain, Edema, Lightheadedness Gastrointestinal: Denies: Abdominal Pain, Decreased Appetite, Nausea, Vomiting 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: Denies: Dysuria, Frequency Musculoskeletal: Reports: Back Pain Skin: Reports: No Symptoms Neurological: Reports: Weakness - Patient Data Vitals - Most Recent: Last Vital Signs Temp 98.5 F 05/19/20 08:00 Pulse 64 05/19/20 07:56 Resp 16 05/19/20 08:00 BP 135/55 L 05/19/20 08:00 Pulse Ox 96 05/19/20 08:00 Weight - Most Recent: 165 lb Lab Results - Last 24 hrs: Laboratory Results - last 24 hr 05/18/20 05/18/20 05/18/20 Range/Units 08:48 09:30 11:22 WBC 7.0 (5.0-10.0) 10^3/uL RBC 3.17 L (4.00-5.50) 10^6/uL Hgb 8.9 L (12.0-16.0) g/dL Hct 27.9 L (37.0-47.0) % MCV 88.0 (82.0-94.0) fL MCH 28.1 (27.0-32.0) pg MCHC 31.9 L (33.0-38.0) g/dL RDW Coeff of Reji 14.9 (11.0-15.0) % Plt Count 264 (150-400) 10^3/uL Neut % (Auto) 75.5 (35-85) % Lymph % (Auto) 15.8 (10-55) % Bowie % (Auto) 7.0 (0-16) % Eos % (Auto) 1.4 (0-5) % Baso % (Auto) 0.3 (0-3) % Neut # (Auto) 5.29 (1.80-7.00) 10^3/uL Lymph # (Auto) 1.11 (1.00-4.80) 10^3/uL Bowie # (Auto) 0.49 (0.00-0.80) 10^3/uL Eos # (Auto) 0.10 (0.00-0.45) 10^3/uL Baso # (Auto) 0.02 10^3/uL Sodium 138 (136-145) mEq/L Potassium 4.0 (3.5-5.0) mEq/L Chloride 103 (98-106) mEq/L Carbon Dioxide 28 (21-32) mmol/L BUN 11 (7-18) mg/dL Creatinine 0.8 (0.6-1.0) mg/dL Est Cr Clr Drug Dosing 63.01 mL/min Estimated GFR (MDRD) > 60 (>=60) mL/min Glucose 85 (75-99) mg/dL POC Glucose 118 H (75-105) mg/dl Calcium 9.6 (8.4-10.1) mg/dL C-Reactive Protein (0.2-0.8) mg/dL 05/18/20 05/18/20 05/19/20 Range/Units 17:16 19:59 07:00 WBC 8.6 (5.0-10.0) 10^3/uL RBC 3.26 L (4.00-5.50) 10^6/uL Hgb 9.0 L (12.0-16.0) g/dL Hct 28.7 L (37.0-47.0) % MCV 88.0 (82.0-94.0) fL MCH 27.6 (27.0-32.0) pg MCHC 31.4 L (33.0-38.0) g/dL RDW Coeff of Reji 14.9 (11.0-15.0) % Plt Count 273 (150-400) 10^3/uL Neut % (Auto) 78.4 (35-85) % Lymph % (Auto) 13.6 (10-55) % Bowie % (Auto) 5.8 (0-16) % Eos % (Auto) 1.9 (0-5) % Baso % (Auto) 0.3 (0-3) % Neut # (Auto) 6.72 (1.80-7.00) 10^3/uL Lymph # (Auto) 1.17 (1.00-4.80) 10^3/uL Bowie # (Auto) 0.50 (0.00-0.80) 10^3/uL Eos # (Auto) 0.16 (0.00-0.45) 10^3/uL Baso # (Auto) 0.03 10^3/uL Sodium (136-145) mEq/L Potassium (3.5-5.0) mEq/L Chloride (98-106) mEq/L Carbon Dioxide (21-32) mmol/L BUN (7-18) mg/dL Creatinine (0.6-1.0) mg/dL Est Cr Clr Drug Dosing mL/min Estimated GFR (MDRD) (>=60) mL/min Glucose (75-99) mg/dL POC Glucose 139 H 131 H (75-105) mg/dl Calcium (8.4-10.1) mg/dL C-Reactive Protein (0.2-0.8) mg/dL 05/19/20 05/19/20 Range/Units 07:20 07:50 WBC (5.0-10.0) 10^3/uL RBC (4.00-5.50) 10^6/uL Hgb (12.0-16.0) g/dL Hct (37.0-47.0) % MCV (82.0-94.0) fL MCH (27.0-32.0) pg MCHC (33.0-38.0) g/dL RDW Coeff of Reji (11.0-15.0) % Plt Count (150-400) 10^3/uL Neut % (Auto) (35-85) % Lymph % (Auto) (10-55) % Bowie % (Auto) (0-16) % Eos % (Auto) (0-5) % Baso % (Auto) (0-3) % Neut # (Auto) (1.80-7.00) 10^3/uL Lymph # (Auto) (1.00-4.80) 10^3/uL Bowie # (Auto) (0.00-0.80) 10^3/uL Eos # (Auto) (0.00-0.45) 10^3/uL Baso # (Auto) 10^3/uL Sodium 137 (136-145) mEq/L Potassium 4.5 (3.5-5.0) mEq/L Chloride 101 (98-106) mEq/L Carbon Dioxide 28 (21-32) mmol/L BUN 12 (7-18) mg/dL Creatinine 0.8 (0.6-1.0) mg/dL Est Cr Clr Drug Dosing 63.01 mL/min Estimated GFR (MDRD) > 60 (>=60) mL/min Glucose 133 H D (75-99) mg/dL POC Glucose 132 H (75-105) mg/dl Calcium 9.5 (8.4-10.1) mg/dL C-Reactive Protein 2.6 H (0.2-0.8) mg/dL YOSEF Results - Last 24 hrs: Microbiology 05/16/20 15:03 Urine Culture - Final Urine, Voided Klebsiella Pneumoniae 05/16/20 16:18 Occult Blood - Final Stool / Feces Med Orders - Current: Current Medications Acetaminophen (Tylenol) 650 mg PO Q4H PRN PRN Reason: Pain (Mild 1-3)/fever Atorvastatin Calcium (Lipitor) 40 mg PO BEDTIME [facility] Last Admin: 05/18/20 19:56 Dose: 40 mg Documented by: Ceftriaxone Sodium (Rocephin) 1 gm IVPUSH DAILY@1700 [facility] Last Admin: 05/18/20 16:55 Dose: 1 gm Documented by: Cyanocobalamin (Vitamin B12) 2,000 mcg PO DAILY [facility] Last Admin: 05/19/20 07:22 Dose: 2,000 mcg Documented by: Cyclobenzaprine HCl (Flexeril) 10 mg PO DAILY PRN PRN Reason: Spasms Digoxin (Lanoxin) 125 mcg PO DAILY [facility] Last Admin: 05/19/20 07:22 Dose: 125 mcg Documented by: Docusate Sodium (Colace) 100 mg PO BID PRN PRN Reason: Constipation Ferrous Sulfate (Ferrous Sulfate) 324 mg PO BIDMEALS [facility] Last Admin: 05/19/20 07:22 Dose: 324 mg Documented by: Folic Acid (Folic Acid) 1 mg PO DAILY [facility] Last Admin: 05/19/20 07:22 Dose: 1 mg Documented by: Furosemide (Lasix) 40 mg PO DAILY [facility] Last Admin: 05/19/20 07:22 Dose: 40 mg Documented by: Isosorbide Mononitrate (Imdur) 30 mg PO BID [facility] Last Admin: 05/19/20 07:22 Dose: 30 mg Documented by: Levothyroxine Sodium (Synthroid) 50 mcg PO ACBREAKFAST [facility] Last Admin: 05/19/20 06:10 Dose: 50 mcg Documented by: Magnesium Oxide (Magnesium Oxide) 1,000 mg PO DAILY [facility] Last Admin: 05/19/20 07:22 Dose: 1,000 mg Documented by: Meclizine HCl (Antivert) 25 mg PO TID PRN PRN Reason: Dizziness Metformin HCl (Glucophage) 1,000 mg PO BIDMEALS [facility] Last Admin: 05/19/20 07:22 Dose: 1,000 mg Documented by: Metoprolol Succinate (Toprol Xl) 100 mg PO DAILY [facility] Last Admin: 05/19/20 07:56 Dose: 100 mg Documented by: Montelukast Sodium (Singulair) 10 mg PO BEDTIME [facility] Last Admin: 05/18/20 19:57 Dose: 10 mg Documented by: Dabigatran Etexilate [Pradaxa] 150 Mg * *Pt Own Med 0 mg PO BID [facility] Last Admin: 05/17/20 07:22 Dose: 150 mg Documented by: Insulin Detemir ( Levemir) 100 Units/Ml Pt Own Med 0 units SUBCUT QAM [facility] Last Admin: 05/19/20 07:51 Dose: 46 units Documented by: Quinapril (Accupril) 10 Mg Pt Own Med 0 mg PO BID [facility] Last Admin: 05/19/20 07:24 Dose: 10 mg Documented by: Sitagliptin (Januvia ) 100 Mg Pt Own Med 0 mg PO DAILY [facility] Last Admin: 05/19/20 07:25 Dose: 100 mg Documented by: Insulin Detemir ( Levemir) 100 Units/Ml 0 units SUBCUT QPM [facility] Last Admin: 05/18/20 20:00 Dose: Not Given Documented by: Ondansetron HCl (Zofran) 4 mg IV Q4H PRN PRN Reason: Nausea/Vomiting Last Admin: 05/16/20 23:41 Dose: 4 mg Documented by: Pantoprazole Sodium (Protonix Iv) 40 mg IVPUSH Q24H [facility] Last Admin: 05/18/20 16:55 Dose: 40 mg Documented by: Tramadol HCl (Ultram) 50 mg PO Q6H PRN PRN Reason: Pain Discontinued Medications Benzocaine (Hurricaine 20% [place]) 1 ml MUCMEM .STK-MED ONE Stop: 05/18/20 08:46 Last Admin: 05/18/20 08:45 Dose: 1 ml Documented by: Ceftriaxone Sodium (Rocephin) 1 gm IVPUSH DAILY@1600 [facility] Last Admin: 05/17/20 15:38 Dose: 1 gm Documented by: Clopidogrel Bisulfate (Plavix) 75 mg PO DAILY [facility] Last Admin: 05/17/20 10:48 Dose: Not Given Documented by: [facility] ([facility]) [facility] Dextrose/Water (Dextrose 50% In Water) 50 ml IVPUSH STAT STA Stop: 05/16/20 18:28 Last Admin: 05/16/20 18:30 Dose: 50 ml Documented by: Dextrose/Water (Dextrose 50% In Water) 50 ml IVPUSH ONETIME ONE Stop: 05/18/20 02:31 Last Admin: 05/18/20 02:47 Dose: 50 ml Documented by: Digoxin (Lanoxin) 125 mcg PO DAILY [facility] Last Admin: 05/18/20 11:02 Dose: 125 mcg Documented by: Folic Acid (Folic Acid) 1 mg PO DAILY [facility] Last Admin: 05/18/20 11:02 Dose: 1 mg Documented by: Furosemide (Lasix) 40 mg PO DAILY [facility] Last Admin: 05/18/20 11:03 Dose: 40 mg Documented by: Sodium Chloride (Normal Saline) 1,000 mls @ 100 mls/hr IV ASDIRECTED [facility] Last Admin: 05/17/20 02:50 Dose: 100 mls/hr Documented by: Lactated Ringer's (Ringers, Lactated) 1,000 mls @ 125 mls/hr IV ASDIRECTED [facility] Isosorbide Mononitrate (Imdur) 30 mg PO BID [facility] Last Admin: 05/18/20 11:02 Dose: 30 mg Documented by: Levothyroxine Sodium (Synthroid) 50 mcg PO ACBREAKFAST [facility] Last Admin: 05/18/20 06:22 Dose: Not Given Documented by: Meperidine HCl (Meperidine) Confirm Administered Dose 50 mg .ROUTE .STK-MED ONE Stop: 05/18/20 08:21 Last Admin: 05/18/20 10:48 Dose: Not Given Documented by: Meperidine HCl (Demerol) 25 mg IVPUSH .[facility]-MED ONE Stop: 05/18/20 08:49 Last Admin: 05/18/20 08:48 Dose: 25 mg Documented by: Metoprolol Succinate (Toprol Xl) 100 mg PO DAILY [facility] Last Admin: 05/18/20 11:05 Dose: 100 mg Documented by: Midazolam HCl (Versed 1 Mg/Ml) Confirm Administered Dose 4 mg .ROUTE .[facility]-MED ONE Stop: 05/18/20 08:22 Last Admin: 05/18/20 10:48 Dose: Not Given Documented by: Midazolam HCl (Versed 1 Mg/Ml) 4 mg IV .K-MED ONE Stop: 05/18/20 08:50 Last Admin: 05/18/20 08:49 Dose: 4 mg Documented by: Montelukast Sodium (Singulair) 10 mg PO BEDTIME [facility] Last Admin: 05/17/20 19:56 Dose: 10 mg Documented by: Atorvastatin [ Lipitor] 40 Mg Pt Own Med 0 mg PO BEDTIME [facility] Last Admin: 05/17/20 19:57 Dose: 40 mg Documented by: Insulin Detemir ( Levemir) 100 Units/Ml Pt Own Med*8 0 units SUBCUT QPM [facility] Last Admin: 05/17/20 20:01 Dose: Not Given Documented by: Metformin [ Glucophage] 1,000 Mg Pt Own Med 0 mg PO BIDMEALS [facility] Last Admin: 05/18/20 12:00 Dose: 1,000 mg Documented by: Non-Formulary Medication (Methocarbamol [Methocarbamol]) 500 mg PO TID [facility] - Exam General: Reports: Alert, Oriented HEENT: Reports: Mucous Membr. Moist/[place] Neck: Reports: Supple Lungs: Reports: Clear to Auscultation, Normal Respiratory Effort Cardiovascular: Reports: Regular Rate, Regular Rhythm GI/Abdominal Exam: Normal Bowel Sounds, Soft, Non-Tender Extremities: Normal Inspection, No Pedal Edema Skin: Reports: Warm, Dry Neurological: Reports: No New Focal Deficit
[2020-05-19] MEDS ORDERED: Clopidogrel 75 MG Tab **PT OWN MED PO SCH (17:30)
== END 2020-05-19 10:25 | disposition home or self-care (01) | DRG 811 ==
LOC: CC.MS 14:54 → CC.FCMC 14:54 → CC.MS 15:59 → UNDOADMOB 15:59 → CC.MS 16:18 → OBSVTOIN 05-18 12:17
PROVIDERS: ADMIT Physician Assistant Medical; ATTEND Family Medicine
PROC: 0DJ08ZZ Inspection of Upper Intestinal Tract, Via Natural or Artificial Opening Endoscopic (ICD-10-PCS; principal; 2020-05-18)
DX: D50.9 Iron deficiency anemia, unspecified (principal); K29.51 Unspecified chronic gastritis with bleeding; R51 Headache; N39.0 Urinary tract infection, site not specified; R19.5 Other fecal abnormalities; B96.1 Klebsiella pneumoniae [K. pneumoniae] as the cause of diseases classified elsewhere; I48.0 Paroxysmal atrial fibrillation; Z79.02 Long term (current) use of antithrombotics/antiplatelets; J30.9 Allergic rhinitis, unspecified; Z20.828 Contact with and (suspected) exposure to other viral communicable diseases; M54.9 Dorsalgia, unspecified; K92.2 Gastrointestinal hemorrhage, unspecified; J44.9 Chronic obstructive pulmonary disease, unspecified; I25.10 Atherosclerotic heart disease of native coronary artery without angina pectoris; I50.9 Heart failure, unspecified; Z87.440 Personal history of urinary (tract) infections; Z87.01 Personal history of pneumonia (recurrent); Z85.038 Personal history of other malignant neoplasm of large intestine; D64.9 Anemia, unspecified; K21.9 Gastro-esophageal reflux disease without esophagitis; E78.00 Pure hypercholesterolemia, unspecified; E03.9 Hypothyroidism, unspecified; Z90.49 Acquired absence of other specified parts of digestive tract; Z95.0 Presence of cardiac pacemaker; M19.90 Unspecified osteoarthritis, unspecified site; K29.70 Gastritis, unspecified, without bleeding; M81.0 Age-related osteoporosis without current pathological fracture; E11.9 Type 2 diabetes mellitus without complications; I11.0 Hypertensive heart disease with heart failure; Z88.8 Allergy status to other drugs, medicaments and biological substances; Z79.82 Long term (current) use of aspirin; Z79.890 Hormone replacement therapy; Z79.899 Other long term (current) drug therapy; Z79.84 Long term (current) use of oral hypoglycemic drugs; Z79.01 Long term (current) use of anticoagulants; Z79.4 Long term (current) use of insulin
CPT/HCPCS: 36415; 80048; 80053; 81001; 81003; 82270; 82550; 82728; 82962; 83540; 83550; 84443; 84484; 85025; 86140; 87086; 87088; 87186; 93005; 93010; 96361; 96374; 96375; 96376; A9270-GY; C9113; G0378; J0696; J2175; J2250; J2405; J7030; U0002

== ENCOUNTER 2021-05-12 19:29 | Emergency (ER) | payer MEDICARE, BC ==
[2021-05-12 19:34] VITALS: BP 156/62; PULSE 88
[2021-05-12 19:51] LABS: CHLORIDE,CL 104 mEq/L (98-106); SODIUM,NA 143 mEq/L (136-145)
--- NOTE | 2021-05-12 20:11 | EDM.PDOC ---
ED HPI GENERAL MEDICAL PROBLEM - General Chief Complaint: General Stated Complaint: Leg Pain Time Seen by Provider: 05/12/21 19:45 Source of Information: Reports: Patient History Limitations: Reports: No Limitations - History of Present Illness INITIAL COMMENTS - FREE TEXT/NARRATIVE: Teagan is a 70 year old female who presents to ER with complaints of left foot swelling and bruising. States noted more pain today and noted that she had a moderate amount of bruising to her leg and denies any injury. had a significant charley horse in her calf but does not recall any other changes. She does have significant varicose veins but hasn't noted any change in those. Was working today and over the day, noted more discomfort in her leg. Is taking her meds as directed. Is on Pradaxa and Plavix and has been taking them but worries about a blood clot due to the bruising. Was recently started on Lyrica and questions if a side effect of that. Denies shortness of breath. No chest pain. Blood sugars do get high in the evening but relates better in the am and hasn't had any recent concerns with that. Onset: Gradual Duration: Day(s): Location: Reports: Lower Extremity, Left Quality: Reports: Throbbing Severity: Moderate (with palpation) Improves with: Reports: Rest Associated Symptoms: Denies: Confusion, Chest Pain, Fever/Chills, Nausea/Vomiting, Shortness of Breath l foot Pain Score (Numeric/FACES): 7 - Related Data Allergies Allergy/AdvReac Type Severity Reaction Status Date / Time diltiazem HCl [From Cardizem] Allergy Rash Verified 05/12/21 19:34 Latex, Natural Rubber Allergy Itching Verified 05/12/21 19:34 denosumab [From Prolia] AdvReac Joint Pain Verified 05/12/21 19:34 simvastatin [From Zocor] AdvReac Nausea Verified 05/12/21 19:34 Home Meds: Home Meds Cholecalciferol (Vitamin D3) [Vitamin D3] 1,000 unit PO DAILY 01/21/14 [History] Dabigatran Etexilate Mesylate [Pradaxa] 150 mg PO BID 01/21/14 [History] Digoxin 125 mcg PO DAILY 01/21/14 [History] Furosemide [Lasix] 40 mg PO DAILY 01/21/14 [History] Insulin Detemir [Levemir] 46 units SUBCUT QAM 01/21/14 [History] Lactobacillus Acidophilus [Probiotic] 1 each PO DAILY 01/21/14 [History] Levothyroxine Sodium 50 mcg PO DAILY 01/21/14 [History] Metoprolol Succinate [Toprol XL] 100 mg PO DAILY 01/21/14 [History] Quinapril HCl 10 mg PO BID 01/21/14 [History] SitaGLIPtin [Januvia] 100 mg PO DAILY 01/21/14 [History] metFORMIN [Glucophage] 1,000 mg PO BID 01/21/14 [History] atorvaSTATin [Lipitor] 40 mg PO DAILY 02/18/14 [History] Isosorbide Mononitrate [Imdur] 30 mg PO BID 06/29/16 [History] Montelukast Sodium 10 mg PO DAILY 06/29/16 [History] Insulin Detemir [Levemir] 50 units SUBCUT QPM 05/14/17 [History] Aspirin [Ecotrin EC] 81 mg PO DAILY 06/30/19 [History] Cyclobenzaprine [Flexeril] 10 mg PO DAILY PRN 06/30/19 [History] Dexlansoprazole [Dexilant] 60 mg PO DAILY 06/30/19 [History] Folic Acid 1,000 mcg PO DAILY 06/30/19 [History] Alendronate Sodium [Fosamax] 70 mg PO WEEKLY 05/16/20 [History] Ascorbate Calcium [Vitamin C] 500 mg PO DAILY 05/16/20 [History] Calcium Carbonate [Calcium] 600 mg PO DAILY 05/16/20 [History] Cyanocobalamin (Vitamin B12) [Vitamin B12] 2,000 mcg PO DAILY 05/16/20 [History] Ferrous Sulfate 325 mg PO BID 05/16/20 [History] Magnesium 1,000 mg PO DAILY 05/16/20 [History] Nitroglycerin [Nitrostat] 0.5 mg SL ASDIRECTED 05/16/20 [History] Ondansetron [Zofran ODT] 4 mg SL Q6HR PRN 05/16/20 [History] methocarbamoL [Methocarbamol] 500 mg PO TID 05/16/20 [History] traMADol HCl [Tramadol HCl] 50 mg PO Q6HR PRN 05/16/20 [History] Clopidogrel Bisulfate [Clopidogrel] 75 mg PO DAILY 05/17/20 [History] Cefuroxime [Ceftin] 250 mg PO BID #14 tab 05/19/20 [Rx] Past Medical History HEENT History: Reports: Impaired Vision Cardiovascular History: Reports: Heart Failure, High Cholesterol, Hypertension, Stents, Other (See Below) Other Cardiovascular History: ATRIAL ENLARGEMENT Respiratory History: Reports: COPD 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 History: Reports: Chronic Renal Insuffiency [employer] History: Reports: Musculoskeletal History: Reports: Arthritis, Back Pain, Chronic, Fibromyalgia Endocrine/Metabolic History: Reports: Diabetes, Type II, Hypothyroidism, Vitamin D Deficiency - Past Surgical History HEENT Surgical History: Reports: Other (See Below) Other HEENT Surgeries/Procedures: TRACHEA SURGERY Cardiovascular Surgical History: Reports: Coronary Artery Stent GI Surgical History: Reports: Cholecystectomy, Colonoscopy, EGD Female Surgical History: Reports: Section Musculoskeletal Surgical History: Reports: Other (See Below) Other Musculoskeletal Surgeries/Procedures:: BACK SURGERY Social & Family History - Family History Family Medical History: No Pertinent Family History - Tobacco Use Tobacco Use Status *Q: Never Tobacco User Second Hand Smoke Exposure: No - Caffeine Use Caffeine Use: Reports: None - Recreational Drug Use Recreational Drug Use: No ED ROS GENERAL - Review of Systems Review Of Systems: See Below Constitutional: Denies: Fever, Chills, Malaise, Weakness, Decreased Appetite HEENT: Reports: No Symptoms Respiratory: Denies: Shortness of Breath Cardiovascular: Reports: Edema. Denies: Chest Pain, Lightheadedness Endocrine: Denies: Fatigue GI/Abdominal: Denies: Abdominal Pain, Nausea, Vomiting : Reports: No Symptoms Musculoskeletal: Reports: Foot Pain Skin: Reports: Bruising Neurological: Denies: Headache, Syncope, Weakness ED EXAM, GENERAL - Physical Exam Exam: See Below Exam Limited By: No Limitations General Appearance: Alert, WD/WN, No Apparent Distress Ears: Normal External Exam, Normal TMs Nose: Normal Inspection, Normal Mucosa, No Blood Throat/Mouth: Normal Inspection, Normal Oropharynx Head: Normocephalic Neck: Normal Inspection, Supple, Non-Tender Respiratory/Chest: No Respiratory Distress, Lungs Clear, Normal Breath Sounds Cardiovascular: Regular Rate, Rhythm Extremities: Other (moderate amount of swelling to left bruising. Bruising noted to left lateral foot and midfoot that extends through her toes. Very tender to touch. Tender to touch to left calf. Does have significant varicose veins. ) Course - Vital Signs Last Recorded V/S: Last Vital Signs Temp 98.3 F 05/12/21 19:29 Pulse 88 05/12/21 19:29 Resp 16 05/12/21 19:29 BP 156/62 H 05/12/21 19:29 Pulse Ox 98 05/12/21 19:29 - Orders/Labs/Meds Labs: Laboratory Tests 05/12/21 05/12/21 05/12/21 Range/Units 19:32 19:32 19:32 WBC 8.3 (4.0-11.0) 10^3/uL RBC 3.47 L (4.00-5.50) x10^6/uL Hgb 10.1 L (12.0-16.0) g/dL Hct 30.5 L (37.0-47.0) % MCV 87.9 (83.0-97.0) fL MCH 29.1 (27.0-32.0) pg MCHC 33.1 (32.0-36.0) g/dL RDW Coeff of Reji 14.2 (11.0-15.0) % Plt Count 175 (150-400) 10^3/uL Immature Gran % (Auto) 0.4 (0.0-4.9) % Neut % (Auto) 68.5 (41-71) % Lymph % (Auto) 20.6 L (24-44) % [place] % (Auto) 4.8 (0-10) % Eos % (Auto) 4.9 (0-6) % Baso % (Auto) 0.8 (0-1) % Neut # (Auto) 5.70 (1.80-8.00) x10^3/uL Lymph # (Auto) 1.72 (0.60-5.00) 10^3/uL [place] # (Auto) 0.40 (0.00-1.50) 10^3/uL Eos # (Auto) 0.41 (0.00-1.50) 10^3/uL Baso # (Auto) 0.07 (0.00-0.50) 10^3/uL Immature Gran # (Auto) 0.03 (0.00-0.49) 10^3/uL D-Dimer, Quantitative 0.23 (0.00-0.50) Sodium 143 (136-145) mEq/L Potassium 4.1 (3.5-5.0) mEq/L Chloride 104 (98-106) mEq/L Carbon Dioxide 31 (21-32) mmol/L BUN 20 H (7-18) mg/dL Creatinine 1.1 H (0.6-1.0) mg/dL Est Cr Clr Drug Dosing 45.19 mL/min Estimated GFR (MDRD) 49 L (>=60) mL/min Glucose 181 H D (75-99) mg/dL Calcium 9.3 (8.4-10.1) mg/dL C-Reactive Protein < 0.2 L (0.2-0.8) mg/dL - Re-Assessments/Exams Free Text/Narrative Re-Assessment/Exam: 05/12/21 Labs normal, no concerns with infection, blood clot. Departure - Departure Time of Disposition: 20:08 Disposition: Home, Self-Care 01 Condition: Good Clinical Impression: Hematoma of left foot - Discharge Information *PRESCRIPTION DRUG MONITORING PROGRAM REVIEWED*: No *COPY OF PRESCRIPTION DRUG MONITORING REPORT IN PATIENT JORDY: No Instructions: Foot Contusion, [id number] Referrals: Praveen Ring, PAAnabelC [Primary Care Provider] - Forms: ED Department Discharge Additional Instructions: 1. Elevate foot when able 2. Ice every 2 hours 3. Compression with ramon bandage if relieves discomfort 4. Follow up if any persisting pain or concern Sepsis Event Note (ED) - Evaluation Sepsis Screening Result: No Definite Risk - Focused Exam Vital Signs: Vital Signs Temp Pulse Resp BP Pulse Ox 05/12/21 19:29 98.3 F 88 16 156/62 H 98
== END 2021-05-12 21:07 | disposition home or self-care (01) ==
LOC: CC.ED 19:29
DX: M79.81 Nontraumatic hematoma of soft tissue (principal); I13.0 Hypertensive heart and chronic kidney disease with heart failure and stage 1 through stage 4 chronic kidney disease, or unspecified chronic kidney disease; E11.22 Type 2 diabetes mellitus with diabetic chronic kidney disease; N18.9 Chronic kidney disease, unspecified; I50.9 Heart failure, unspecified; E78.00 Pure hypercholesterolemia, unspecified; J44.9 Chronic obstructive pulmonary disease, unspecified; M19.90 Unspecified osteoarthritis, unspecified site; E03.9 Hypothyroidism, unspecified; Z88.8 Allergy status to other drugs, medicaments and biological substances; Z91.040 Latex allergy status; Z79.4 Long term (current) use of insulin; Z79.82 Long term (current) use of aspirin; Z79.899 Other long term (current) drug therapy; Z79.02 Long term (current) use of antithrombotics/antiplatelets
CPT/HCPCS: 36415; 80048; 85025; 85379; 86140; 99283

== ENCOUNTER 2022-01-26 15:25 | Emergency (ER) | payer OTHER, MEDICARE, BC ==
[2022-01-26 16:04] LABS: CHLORIDE,CL 99 mEq/L (98-106); SODIUM,NA 139 mEq/L (136-145)
[2022-01-26 18:15] VITALS: BP 126/69; PULSE 72
== END 2022-01-26 17:45 | disposition home or self-care (01) ==
LOC: CC.ED 15:25
DX: S13.4XXA Sprain of ligaments of cervical spine, initial encounter (principal); R42 Dizziness and giddiness; E11.22 Type 2 diabetes mellitus with diabetic chronic kidney disease; I13.0 Hypertensive heart and chronic kidney disease with heart failure and stage 1 through stage 4 chronic kidney disease, or unspecified chronic kidney disease; N18.9 Chronic kidney disease, unspecified; I50.9 Heart failure, unspecified; E03.9 Hypothyroidism, unspecified; E78.00 Pure hypercholesterolemia, unspecified; J44.9 Chronic obstructive pulmonary disease, unspecified; Z95.5 Presence of coronary angioplasty implant and graft; Z91.040 Latex allergy status; Z88.8 Allergy status to other drugs, medicaments and biological substances; Z79.4 Long term (current) use of insulin; Z79.82 Long term (current) use of aspirin; Z79.02 Long term (current) use of antithrombotics/antiplatelets; Z79.899 Other long term (current) drug therapy; V89.2XXA Person injured in unspecified motor-vehicle accident, traffic, initial encounter
CPT/HCPCS: 36415; 70450; 71045; 72125; 80053; 81003; 84484; 85025; 93005; 99284; 99284-25

== ENCOUNTER 2023-01-10 11:55 | Emergency (ER) | payer OTHER, MEDICARE ==
[2023-01-10] MEDS ORDERED: Sodium Chloride 0.9% 1,000 ML IV STA (12:03)
[2023-01-10 12:22] LABS: CHLORIDE,CL 102 mEq/L (98-106); SODIUM,NA 140 mEq/L (136-145)
[2023-01-10 12:30] LABS: ESTIMATED GFR 60 mL/min (>=60)
[2023-01-10] MEDS ORDERED: HYDROmorphone 1 MG/ML Syringe IVPUSH ONE (12:34)
[2023-01-10] MEDS: Ondansetron 4 MG/2 ML SDV IVPUSH PRN ×2 (12:43→13:48)
[2023-01-10 13:23] LABS: AMPHETAMINES,URINE NEGATIVE (NEGATIVE); BARBITURATES,URINE NEGATIVE (NEGATIVE); BENZODIAZEPINE,URINE NEGATIVE (NEGATIVE); MDMA (ECSTASY), URINE NEGATIVE (NEGATIVE); METHADONE,URINE NEGATIVE (NEGATIVE); METHAMPHETAMINES,URINE NEGATIVE (NEGATIVE); OPIATES,URINE POSITIVE (NEGATIVE); OXYCODONE,URINE NEGATIVE (NEGATIVE); PHENCYCLIDINE,URINE NEGATIVE (NEGATIVE); TCA,URINE NEGATIVE (NEGATIVE)
[2023-01-10 13:28] VITALS: BP 144/61; PULSE 60
[2023-01-10] MEDS ORDERED: Promethazine 25 MG in Sodium Chloride 0.9% 50 ML IV PRN (13:40)
[2023-01-10] MEDS ORDERED: Promethazine 25 MG/ML SDV ONE (13:42)
[2023-01-10] MEDS ORDERED: Ondansetron 4 MG/2 ML SDV ONE (19:09)
== END 2023-01-10 13:50 ==
LOC: CC.ED 11:55
DX: S52.125A Nondisplaced fracture of head of left radius, initial encounter for closed fracture (principal); S72.142A Displaced intertrochanteric fracture of left femur, initial encounter for closed fracture; S72.122A Displaced fracture of lesser trochanter of left femur, initial encounter for closed fracture; I13.0 Hypertensive heart and chronic kidney disease with heart failure and stage 1 through stage 4 chronic kidney disease, or unspecified chronic kidney disease; E11.22 Type 2 diabetes mellitus with diabetic chronic kidney disease; N18.9 Chronic kidney disease, unspecified; I50.9 Heart failure, unspecified; E78.00 Pure hypercholesterolemia, unspecified; J44.9 Chronic obstructive pulmonary disease, unspecified; M19.90 Unspecified osteoarthritis, unspecified site; E03.9 Hypothyroidism, unspecified; Z88.8 Allergy status to other drugs, medicaments and biological substances; Z91.040 Latex allergy status; Z79.899 Other long term (current) drug therapy; Z79.4 Long term (current) use of insulin; Z79.82 Long term (current) use of aspirin; Z79.02 Long term (current) use of antithrombotics/antiplatelets; Z79.01 Long term (current) use of anticoagulants; W18.30XA Fall on same level, unspecified, initial encounter; Y92.89 Other specified places as the place of occurrence of the external cause; Y99.0 Civilian activity done for income or pay
CPT/HCPCS: 29105; 36415; 70450; 71045; 72125; 72170; 73030-LT; 73110-LT; 73700-LT; 80053; 80305-QW; 81003; 83605; 83735; 84484; 85025; 85610; 86850; 86900; 86901; 93005; 93010; 96374; 96375; 96376; 99284; 99285-25; J1170; J2405; J2550; J3490; J7030

== ENCOUNTER 2023-03-11 14:23 | Inpatient (IN) | payer MEDICARE ==
[2023-03-11 14:48] LABS: BASOPHILS ABSOLUTE AUTO 0.03 10^3/uL (0.00-0.50); BASOPHILS PERCENT AUTO 0.3 % (0-1); EOSINOPHILS ABSOLUTE AUTO 0.06 10^3/uL (0.00-1.50); EOSINOPHILS PERCENT AUTO 0.7 % (0-6); HEMATOCRIT 42.2 % (37.0-47.0); HEMOGLOBIN 13.5 g/dL (12.0-16.0); IMMATURE GRAN ABSOLUTE AUTO 0.01 10^3/uL (0.00-0.49); IMMATURE GRAN PERCENT AUTO 0.1 % (0.0-4.9); LYMPHOCYTES ABSOLUTE AUTO 1.15 10^3/uL (0.60-5.00); LYMPHOCYTES PERCENT AUTO 12.8 % (24-44); MEAN CORPUSCULAR VOLUME 84.4 fL (83.0-97.0); MONOCYTES ABSOLUTE AUTO 0.54 10^3/uL (0.00-1.50); NEUTROPHILS ABSOLUTE AUTO 7.21 x10^3/uL (1.80-8.00); NEUTROPHILS PERCENT AUTO 80.1 % (41-71); PLATELET COUNT,PLT 271 10^3/uL (150-400)
[2023-03-11 15:02] LABS: ALBUMIN 3.1 g/dL (3.4-5.0); BILIRUBIN TOTAL 0.8 mg/dL (0.0-1.0); CALCIUM 10.3 mg/dL (8.4-10.1); CREATININE 0.9 mg/dL (0.6-1.0); EST CRCL DRUG DOSING (CG) 53.67 mL/min; MAGNESIUM 1.6 mg/dL (1.8-2.4); POTASSIUM,K 3.1 mEq/L (3.5-5.0); PROTEIN TOTAL,TP 7.3 g/dL (6.4-8.2)
[2023-03-11] MEDS ORDERED: Acetaminophen 325 MG Tab PO PRN (15:14)
[2023-03-11] MEDS ORDERED: Ondansetron 4 MG/2 ML SDV IV PRN (15:14)
[2023-03-11] MEDS ORDERED: Polyethylene Glycol 3350 Powder 17 GM Packet PO PRN (15:14)
[2023-03-11] MEDS ORDERED: Docusate Sodium 100 MG Cap PO PRN (15:14)
[2023-03-11] MEDS ORDERED: Ondansetron 4 MG Tab.DIS PO PRN (15:14)
[2023-03-11] MEDS ORDERED: Sodium Chloride 0.9% 1,000 ML IV SCH (15:15)
[2023-03-11] MEDS ORDERED: Potassium Chloride Riders 20 MEQ in Premix Bag 2 BAG IV ONE (15:17)
[2023-03-11] MEDS ORDERED: Glucagon,Human Recombinant 1 MG Vial IM PRN (15:26)
[2023-03-11] MEDS ORDERED: 50% Dextrose in Water 50 ML Syringe IVPUSH PRN (15:26)
[2023-03-11] MEDS ORDERED: Magnesium Sulfate/Water 2 GM in Premix Bag 1 BAG IV ONE (15:45)
[2023-03-11] MEDS ORDERED: Sodium Chloride 0.9% 1,000 ML IV STA (15:48)
[2023-03-11] MEDS: metFORMIN 500 MG Tab PO SCH (17:00)
[2023-03-11] MEDS ORDERED: Meclizine 12.5 MG Tab PO PRN (17:12)
[2023-03-11] MEDS ORDERED: Potassium Chloride Riders 20 MEQ in Premix Bag 1 BAG IV ONE (17:30)
[2023-03-11] MEDS: Pregabalin 100 MG Cap PO SCH (19:08)
[2023-03-11] MEDS: Montelukast 10 MG Tab PO SCH (19:09)
[2023-03-11] MEDS: Isosorbide Mononitrate 30 MG Tab.ER PO SCH (19:09)
[2023-03-11] MEDS: DABIGATRAN 75 MG PO SCH (19:10)
[2023-03-11] MEDS: ROSUVASTATIN CALCIUM 40 MG PO SCH (19:10)
[2023-03-11] MEDS: Insulin Glarg,Human.Rec.Analog 100 Unit/ML SUBCUT SCH (19:12)
[2023-03-12] MEDS: Pantoprazole 40 MG Tab.CR PO SCH (06:36)
[2023-03-12] MEDS: Levothyroxine 50 MCG Tab PO SCH (06:36)
[2023-03-12] MEDS: Calcium Carbonate 500 MG Tab.Chew PO SCH (07:47)
[2023-03-12] MEDS: metFORMIN 500 MG Tab PO SCH ×2 (07:49→17:26)
[2023-03-12] MEDS: Sertraline 25 MG Tab PO SCH (07:49)
[2023-03-12] MEDS: Cholecalciferol (Vitamin D3) 25 MCG Tab PO SCH (07:49)
[2023-03-12] MEDS: Isosorbide Mononitrate 30 MG Tab.ER PO SCH ×2 (07:50→19:23)
[2023-03-12] MEDS: Ascorbic Acid 500 MG Tab PO SCH (07:50)
[2023-03-12] MEDS: Aspirin 81 MG Tab.EC PO SCH (07:50)
[2023-03-12] MEDS: Furosemide 40 MG Tab PO SCH (07:50)
[2023-03-12] MEDS: Zinc Sulfate 220 MG Cap PO SCH (07:50)
[2023-03-12] MEDS: Pregabalin 100 MG Cap PO SCH ×2 (07:51→19:23)
[2023-03-12] MEDS: Metoprolol Succinate 100 MG Tab.ER PO SCH (07:51)
[2023-03-12] MEDS: Ferrous Sulfate 324 MG Tab.EC PO SCH (07:51)
[2023-03-12] MEDS: Lisinopril 10 MG Tab PO SCH (07:51)
[2023-03-12] MEDS: Folic Acid 1 MG Tab PO SCH (07:52)
[2023-03-12] MEDS: amLODIPine 10 MG Tab PO SCH (07:52)
[2023-03-12] MEDS: DABIGATRAN 75 MG PO SCH ×2 (07:53→19:30)
[2023-03-12] MEDS: MYRBETRIQ 25 MG PO SCH (07:53)
[2023-03-12] MEDS: Lactobacillus Rhamnosus GG (Probiotic) Cap PO SCH (07:54)
[2023-03-12] MEDS: Digoxin 125 MCG Tab PO SCH (07:55)
[2023-03-12 08:03] LABS: CALCIUM 9.6 mg/dL (8.4-10.1); CREATININE 0.7 mg/dL (0.6-1.0); EST CRCL DRUG DOSING (CG) 69.01 mL/min; MAGNESIUM 1.8 mg/dL (1.8-2.4)
[2023-03-12 08:20] LABS: POTASSIUM,K 2.8 mEq/L (3.5-5.0)
[2023-03-12 08:27] LABS: APPEARANCE,URINE CLOUDY (CLEAR); BILIRUBIN,URINE NEGATIVE (NEGATIVE); COLOR,URINE YELLOW (YELLOW); GLUCOSE,URINE 500 mg/dL (NEGATIVE); KETONES,URINE 40 mg/dL (NEGATIVE); LEUKOCYTE ESTERASE,URINE NEGATIVE (NEGATIVE); NITRITE,URINE POSITIVE (NEGATIVE); OCCULT BLOOD,URINE NEGATIVE (NEGATIVE); PH,URINE 5.5 (4.5-8.0); PROTEIN,URINE NEGATIVE (NEGATIVE); UROBILINOGEN,URINE 0.2 EU/dL (0.2-1.0)
[2023-03-12 08:44] LABS: BACTERIA,URINE MODERATE /HPF (NOT SEEN); EPITHELIAL CELLS,URINE OCCASIONAL /HPF (NOT SEEN); MUCUS,URINE OCCASIONAL /HPF (NOT SEEN); RBC,URINE 0-5 /HPF (0-5)
[2023-03-12] MEDS ORDERED: Potassium Chloride 10% 20 MEQ/15 ML Soln 15 ML UD Cup PO ONE (09:15)
[2023-03-12] MEDS ORDERED: Potassium Chloride 10% 20 MEQ/15 ML Soln 15 ML UD Cup ONE (09:25)
[2023-03-12] MEDS: cefTRIAXone 1 GM Vial IVPUSH SCH (09:27)
[2023-03-12] MEDS ORDERED: Potassium Chloride Riders 20 MEQ in Premix Bag 1 BAG IV ONE (09:30)
[2023-03-12] MEDS ORDERED: Sodium Chloride 0.9% 250 ML IV ONE (09:30)
[2023-03-12 09:50] LABS: BASOPHILS ABSOLUTE AUTO 0.03 10^3/uL (0.00-0.50); BASOPHILS PERCENT AUTO 0.5 % (0-1); EOSINOPHILS ABSOLUTE AUTO 0.28 10^3/uL (0.00-1.50); EOSINOPHILS PERCENT AUTO 4.9 % (0-6); HEMATOCRIT 37.7 % (37.0-47.0); HEMOGLOBIN 11.9 g/dL (12.0-16.0); IMMATURE GRAN ABSOLUTE AUTO 0.01 10^3/uL (0.00-0.49); IMMATURE GRAN PERCENT AUTO 0.2 % (0.0-4.9); LYMPHOCYTES ABSOLUTE AUTO 1.58 10^3/uL (0.60-5.00); LYMPHOCYTES PERCENT AUTO 27.6 % (24-44); MEAN CORPUSCULAR HEMOGLOBIN 27.2 pg (27.0-32.0); MEAN CORPUSCULAR HGB CONC 31.6 g/dL (32.0-36.0); MEAN CORPUSCULAR VOLUME 86.3 fL (83.0-97.0); MONOCYTES ABSOLUTE AUTO 0.43 10^3/uL (0.00-1.50); MONOCYTES PERCENT AUTO 7.5 % (0-10); NEUTROPHILS PERCENT AUTO 59.3 % (41-71); PLATELET COUNT,PLT 210 10^3/uL (150-400); RED BLOOD CELL COUNT 4.37 x10^6/uL (4.00-5.50); WHITE BLOOD CELL COUNT,WBC 5.7 10^3/uL (4.0-11.0)
[2023-03-12] MEDS ORDERED: Enoxaparin 40 MG/0.4 ML Syringe SUBCUT SCH (12:00)
[2023-03-12] MEDS: Potassium Chloride 10 MEQ Tab.ER PO SCH (17:26)
[2023-03-12] MEDS: Montelukast 10 MG Tab PO SCH (19:23)
[2023-03-12] MEDS: ROSUVASTATIN CALCIUM 40 MG PO SCH (19:29)
[2023-03-12] MEDS: Insulin Glarg,Human.Rec.Analog 100 Unit/ML SUBCUT SCH (19:33)
[2023-03-13] MEDS: Pantoprazole 40 MG Tab.CR PO SCH (06:38)
[2023-03-13] MEDS: Levothyroxine 50 MCG Tab PO SCH (06:38)
[2023-03-13 07:20] LABS: BASOPHILS ABSOLUTE AUTO 0.02 10^3/uL (0.00-0.50); BASOPHILS PERCENT AUTO 0.3 % (0-1); EOSINOPHILS ABSOLUTE AUTO 0.41 10^3/uL (0.00-1.50); EOSINOPHILS PERCENT AUTO 6.8 % (0-6); HEMATOCRIT 37.1 % (37.0-47.0); HEMOGLOBIN 11.6 g/dL (12.0-16.0); IMMATURE GRAN ABSOLUTE AUTO 0.01 10^3/uL (0.00-0.49); IMMATURE GRAN PERCENT AUTO 0.2 % (0.0-4.9); LYMPHOCYTES ABSOLUTE AUTO 1.48 10^3/uL (0.60-5.00); LYMPHOCYTES PERCENT AUTO 24.7 % (24-44); MEAN CORPUSCULAR HEMOGLOBIN 27.4 pg (27.0-32.0); MEAN CORPUSCULAR HGB CONC 31.3 g/dL (32.0-36.0); MEAN CORPUSCULAR VOLUME 87.7 fL (83.0-97.0); MONOCYTES ABSOLUTE AUTO 0.33 10^3/uL (0.00-1.50); MONOCYTES PERCENT AUTO 5.5 % (0-10); NEUTROPHILS ABSOLUTE AUTO 3.75 x10^3/uL (1.80-8.00); NEUTROPHILS PERCENT AUTO 62.5 % (41-71); PLATELET COUNT,PLT 230 10^3/uL (150-400); RED BLOOD CELL COUNT 4.23 x10^6/uL (4.00-5.50)
[2023-03-13 07:31] LABS: CALCIUM 9.8 mg/dL (8.4-10.1); CREATININE 0.6 mg/dL (0.6-1.0); EST CRCL DRUG DOSING (CG) 80.51 mL/min; MAGNESIUM 1.6 mg/dL (1.8-2.4); POTASSIUM,K 4.2 mEq/L (3.5-5.0)
[2023-03-13] MEDS: Calcium Carbonate 500 MG Tab.Chew PO SCH (07:49)
[2023-03-13] MEDS: Digoxin 125 MCG Tab PO SCH (07:49)
[2023-03-13] MEDS: Potassium Chloride 10 MEQ Tab.ER PO SCH ×2 (07:50→17:17)
[2023-03-13] MEDS: Lisinopril 10 MG Tab PO SCH (07:50)
[2023-03-13] MEDS: Furosemide 40 MG Tab PO SCH (07:51)
[2023-03-13] MEDS: Aspirin 81 MG Tab.EC PO SCH (07:51)
[2023-03-13] MEDS: Cholecalciferol (Vitamin D3) 25 MCG Tab PO SCH (07:52)
[2023-03-13] MEDS: Pregabalin 100 MG Cap PO SCH ×2 (07:52→19:36)
[2023-03-13] MEDS: Lactobacillus Rhamnosus GG (Probiotic) Cap PO SCH (07:53)
[2023-03-13] MEDS: metFORMIN 500 MG Tab PO SCH ×2 (07:54→17:17)
[2023-03-13] MEDS: Ascorbic Acid 500 MG Tab PO SCH (07:55)
[2023-03-13] MEDS: Isosorbide Mononitrate 30 MG Tab.ER PO SCH ×2 (07:55→19:36)
[2023-03-13] MEDS: Metoprolol Succinate 100 MG Tab.ER PO SCH (07:56)
[2023-03-13] MEDS: Sertraline 25 MG Tab PO SCH (07:56)
[2023-03-13] MEDS: Zinc Sulfate 220 MG Cap PO SCH (07:57)
[2023-03-13] MEDS: Folic Acid 1 MG Tab PO SCH (07:57)
[2023-03-13] MEDS: Ferrous Sulfate 324 MG Tab.EC PO SCH (07:58)
[2023-03-13] MEDS: amLODIPine 10 MG Tab PO SCH (08:00)
[2023-03-13] MEDS: DABIGATRAN 75 MG PO SCH ×2 (08:08→19:36)
[2023-03-13] MEDS: MYRBETRIQ 25 MG PO SCH (08:08)
[2023-03-13] MEDS: cefTRIAXone 1 GM Vial IVPUSH SCH (09:05)
[2023-03-13] MEDS: Montelukast 10 MG Tab PO SCH (19:36)
[2023-03-13] MEDS: ROSUVASTATIN CALCIUM 40 MG PO SCH (19:38)
[2023-03-13] MEDS: Insulin Glarg,Human.Rec.Analog 100 Unit/ML SUBCUT SCH (20:22)
[2023-03-14 08:09] LABS: CALCIUM 9.8 mg/dL (8.4-10.1); CREATININE 0.7 mg/dL (0.6-1.0); EST CRCL DRUG DOSING (CG) 69.01 mL/min; MAGNESIUM 1.5 mg/dL (1.8-2.4); POTASSIUM,K 4.1 mEq/L (3.5-5.0)
[2023-03-14] MEDS ORDERED: Lactated Ringers 1,000 ML IV SCH (08:15)
[2023-03-14] MEDS ORDERED: Propofol 200 MG/20 ML SDV ONE (08:59)
[2023-03-14] MEDS: DABIGATRAN 75 MG PO SCH ×2 (09:22→09:55)
[2023-03-14] MEDS: Aspirin 81 MG Tab.EC PO SCH (09:41)
[2023-03-14] MEDS: amLODIPine 10 MG Tab PO SCH (09:42)
[2023-03-14] MEDS: Potassium Chloride 10 MEQ Tab.ER PO SCH (09:43)
[2023-03-14] MEDS: Lisinopril 10 MG Tab PO SCH (09:43)
[2023-03-14] MEDS: Folic Acid 1 MG Tab PO SCH (09:43)
[2023-03-14] MEDS: Ascorbic Acid 500 MG Tab PO SCH (09:43)
[2023-03-14] MEDS: metFORMIN 500 MG Tab PO SCH (09:44)
[2023-03-14] MEDS: Pregabalin 100 MG Cap PO SCH (09:44)
[2023-03-14] MEDS: Pantoprazole 40 MG Tab.CR PO SCH (09:44)
[2023-03-14] MEDS: Ferrous Sulfate 324 MG Tab.EC PO SCH (09:44)
[2023-03-14] MEDS: Metoprolol Succinate 100 MG Tab.ER PO SCH (09:45)
[2023-03-14] MEDS: Furosemide 40 MG Tab PO SCH (09:45)
[2023-03-14] MEDS: Isosorbide Mononitrate 30 MG Tab.ER PO SCH (09:46)
[2023-03-14] MEDS: Cholecalciferol (Vitamin D3) 25 MCG Tab PO SCH (09:46)
[2023-03-14] MEDS: Digoxin 125 MCG Tab PO SCH (09:46)
[2023-03-14] MEDS: Zinc Sulfate 220 MG Cap PO SCH (09:46)
[2023-03-14] MEDS: Sertraline 25 MG Tab PO SCH (09:47)
[2023-03-14] MEDS: Calcium Carbonate 500 MG Tab.Chew PO SCH (09:47)
[2023-03-14] MEDS: MYRBETRIQ 25 MG PO SCH (09:48)
[2023-03-14] MEDS: Lactobacillus Rhamnosus GG (Probiotic) Cap PO SCH (09:51)
[2023-03-14] MEDS: Levothyroxine 50 MCG Tab PO SCH (09:51)
[2023-03-14] MEDS: cefTRIAXone 1 GM Vial IVPUSH SCH (09:54)
[2023-03-14 10:06] LABS: HEMOGLOBIN 11.4 g/dL (12.0-16.0); MEAN CORPUSCULAR HEMOGLOBIN 27.2 pg (27.0-32.0); MEAN CORPUSCULAR HGB CONC 30.8 g/dL (32.0-36.0); MEAN CORPUSCULAR VOLUME 88.3 fL (83.0-97.0); PLATELET COUNT,PLT 222 10^3/uL (150-400); RED BLOOD CELL COUNT 4.19 x10^6/uL (4.00-5.50)
[2023-03-14 10:07] LABS: BASOPHILS ABSOLUTE AUTO 0.05 10^3/uL (0.00-0.50); BASOPHILS PERCENT AUTO 0.8 % (0-1); EOSINOPHILS ABSOLUTE AUTO 0.44 10^3/uL (0.00-1.50); EOSINOPHILS PERCENT AUTO 7.4 % (0-6); IMMATURE GRAN ABSOLUTE AUTO 0.01 10^3/uL (0.00-0.49); IMMATURE GRAN PERCENT AUTO 0.2 % (0.0-4.9); LYMPHOCYTES ABSOLUTE AUTO 1.56 10^3/uL (0.60-5.00); LYMPHOCYTES PERCENT AUTO 26.2 % (24-44); MONOCYTES ABSOLUTE AUTO 0.48 10^3/uL (0.00-1.50); MONOCYTES PERCENT AUTO 8.1 % (0-10); NEUTROPHILS ABSOLUTE AUTO 3.41 x10^3/uL (1.80-8.00); NEUTROPHILS PERCENT AUTO 57.3 % (41-71)
[2023-03-14 11:38] VITALS: BP 129/55; PULSE 73
[2023-03-14] MEDS ORDERED: Pantoprazole 40 MG Vial IVPUSH ONE (12:00)
== END 2023-03-14 15:22 | disposition home or self-care (01) | DRG 948 ==
LOC: UNDOADMOB 14:23 → CC.MS 14:23 → OBSVTOIN 16:07 → CC.MS 16:07
PROVIDERS: ADMIT Nurse Practitioner; ATTEND Nurse Practitioner
PROC: 0DJ08ZZ Inspection of Upper Intestinal Tract, Via Natural or Artificial Opening Endoscopic (ICD-10-PCS; principal; 2023-03-14)
DX: R53.1 Weakness (principal); N39.0 Urinary tract infection, site not specified; I13.0 Hypertensive heart and chronic kidney disease with heart failure and stage 1 through stage 4 chronic kidney disease, or unspecified chronic kidney disease; R19.7 Diarrhea, unspecified; E11.9 Type 2 diabetes mellitus without complications; I11.0 Hypertensive heart disease with heart failure; E87.6 Hypokalemia; E83.42 Hypomagnesemia; K29.70 Gastritis, unspecified, without bleeding; B96.5 Pseudomonas (aeruginosa) (mallei) (pseudomallei) as the cause of diseases classified elsewhere; Z79.4 Long term (current) use of insulin; E78.00 Pure hypercholesterolemia, unspecified; J44.9 Chronic obstructive pulmonary disease, unspecified; N18.9 Chronic kidney disease, unspecified; M19.90 Unspecified osteoarthritis, unspecified site; I50.9 Heart failure, unspecified; K44.9 Diaphragmatic hernia without obstruction or gangrene; M54.9 Dorsalgia, unspecified; G89.29 Other chronic pain; R13.10 Dysphagia, unspecified; E11.22 Type 2 diabetes mellitus with diabetic chronic kidney disease; E03.9 Hypothyroidism, unspecified; M79.7 Fibromyalgia; Z90.49 Acquired absence of other specified parts of digestive tract; Z79.890 Hormone replacement therapy; Z79.899 Other long term (current) drug therapy; Z79.84 Long term (current) use of oral hypoglycemic drugs; Z98.890 Other specified postprocedural states; Z79.82 Long term (current) use of aspirin; Z88.8 Allergy status to other drugs, medicaments and biological substances; Z91.040 Latex allergy status; I25.2 Old myocardial infarction; Z95.0 Presence of cardiac pacemaker; Z95.5 Presence of coronary angioplasty implant and graft
CPT/HCPCS: 00731; 36415; 80048; 80053; 81001; 81003; 82947; 83690; 83735; 84484; 85025; 85730; 87045; 87046; 87086; 87088; 87186; 87493; 89055; 93005; 93010; 96365; 97110-GP; 97161-GP; 99100; 99223; 99232; 99233; 99238; A9270-GY; C9113; G0378; J0696; J1815-GY; J2704; J3475; J3480; J7030; J7050; J7120

== ENCOUNTER 2023-04-06 15:10 | Inpatient (IN) | payer MEDICARE ==
[2023-04-06 15:49] LABS: BASOPHILS ABSOLUTE AUTO 0.01 10^3/uL (0.00-0.50); BASOPHILS PERCENT AUTO 0.1 % (0-1); EOSINOPHILS ABSOLUTE AUTO 0.01 10^3/uL (0.00-1.50); EOSINOPHILS PERCENT AUTO 0.1 % (0-6); HEMATOCRIT 42.1 % (37.0-47.0); HEMOGLOBIN 13.7 g/dL (12.0-16.0); IMMATURE GRAN ABSOLUTE AUTO 0.03 10^3/uL (0.00-0.49); IMMATURE GRAN PERCENT AUTO 0.2 % (0.0-4.9); LYMPHOCYTES ABSOLUTE AUTO 0.97 10^3/uL (0.60-5.00); LYMPHOCYTES PERCENT AUTO 7.3 % (24-44); MEAN CORPUSCULAR HGB CONC 32.5 g/dL (32.0-36.0); MEAN CORPUSCULAR VOLUME 82.9 fL (83.0-97.0); MONOCYTES ABSOLUTE AUTO 0.45 10^3/uL (0.00-1.50); MONOCYTES PERCENT AUTO 3.4 % (0-10); NEUTROPHILS ABSOLUTE AUTO 11.81 x10^3/uL (1.80-8.00); NEUTROPHILS PERCENT AUTO 88.9 % (41-71); PLATELET COUNT,PLT 334 10^3/uL (150-400); RED BLOOD CELL COUNT 5.08 x10^6/uL (4.00-5.50); WHITE BLOOD CELL COUNT,WBC 13.3 10^3/uL (4.0-11.0)
[2023-04-06 16:09] LABS: ALANINE AMINOTRANSFERASE,ALT 17 U/L (12-78); ALBUMIN 2.5 g/dL (3.4-5.0); ALKALINE PHOSPHATASE 132 U/L (46-116); ASPARTATE AMNIOTRANSFERASE,AST 18 U/L (15-37); BILIRUBIN TOTAL 0.6 mg/dL (0.0-1.0); BLOOD UREA NITROGEN,BUN 36 mg/dL (7-18); C-REACTIVE PROTEIN 1.65 mg/dL (<=0.30); CALCIUM 10.1 mg/dL (8.4-10.1); CARBON DIOXIDE,CO2 24 mmol/L (21-32); CHLORIDE,CL 101 mEq/L (98-106); CREATININE 0.9 mg/dL (0.6-1.0); GLUCOSE RANDOM 152 mg/dL (75-99); MAGNESIUM 1.8 mg/dL (1.8-2.4); POTASSIUM,K 3.5 mEq/L (3.5-5.0); PROTEIN TOTAL,TP 6.5 g/dL (6.4-8.2); SODIUM,NA 139 mEq/L (136-145)
[2023-04-06 16:10] LABS: ESTIMATED GFR 68 mL/min (>=60)
[2023-04-06] MEDS: Sodium Chloride 0.9% 1,000 ML IV SCH (16:29)
[2023-04-06] MEDS ORDERED: Ondansetron 4 MG/2 ML SDV IV PRN (17:40)
[2023-04-06] MEDS ORDERED: Ondansetron 4 MG Tab.DIS PO PRN (17:40)
[2023-04-06] MEDS ORDERED: Nitroglycerin 0.4 MG Tab.SL SL PRN (17:45)
[2023-04-06 19:05] LABS: APPEARANCE,URINE SLIGHTLY CLOUDY (CLEAR); BILIRUBIN,URINE NEGATIVE (NEGATIVE); COLOR,URINE YELLOW (YELLOW); GLUCOSE,URINE 500 mg/dL (NEGATIVE); KETONES,URINE 15 mg/dL (NEGATIVE); LEUKOCYTE ESTERASE,URINE SMALL (NEGATIVE); NITRITE,URINE NEGATIVE (NEGATIVE); OCCULT BLOOD,URINE TRACE-INTACT (NEGATIVE); PH,URINE 5.5 (4.5-8.0); PROTEIN,URINE NEGATIVE (NEGATIVE); UROBILINOGEN,URINE 0.2 EU/dL (0.2-1.0)
[2023-04-06 19:18] LABS: BACTERIA,URINE FEW /HPF (NOT SEEN); EPITHELIAL CELLS,URINE RARE /HPF (NOT SEEN); RBC,URINE 0-5 /HPF (0-5); WBC CLUMPS,URINE MODERATE /HPF (NOT SEEN); WBC,URINE 75-100 /HPF (0-5); YEAST,URINE MANY /HPF (NOT SEEN)
[2023-04-06] MEDS ORDERED: DABIGATRAN ETEXILATE MESYLATE 75 MG PO SCH (20:00)
[2023-04-06] MEDS ORDERED: QUINAPRIL HCL 10 MG PO SCH (20:00)
[2023-04-06] MEDS: Apixaban 5 MG Tab PO SCH (20:19)
[2023-04-06] MEDS: Levofloxacin/Dextrose 5%-Water 750 MG in Premix Bag 1 BAG IV SCH (20:19)
[2023-04-06] MEDS: Pregabalin 50 MG Cap PO SCH (20:20)
[2023-04-06] MEDS: metFORMIN 500 MG Tab PO SCH (20:24)
[2023-04-07] MEDS: Acetaminophen 325 MG Tab PO PRN (00:43)
[2023-04-07] MEDS: Sodium Chloride 0.9% 1,000 ML IV SCH ×3 (02:01→18:41)
[2023-04-07] MEDS: Pantoprazole 40 MG Tab.CR PO SCH (07:13)
[2023-04-07] MEDS: Levothyroxine 50 MCG Tab PO SCH (07:13)
[2023-04-07 07:32] LABS: BASOPHILS ABSOLUTE AUTO 0.01 10^3/uL (0.00-0.50); BASOPHILS PERCENT AUTO 0.1 % (0-1); EOSINOPHILS ABSOLUTE AUTO 0.11 10^3/uL (0.00-1.50); EOSINOPHILS PERCENT AUTO 1.6 % (0-6); HEMATOCRIT 36.8 % (37.0-47.0); HEMOGLOBIN 11.8 g/dL (12.0-16.0); IMMATURE GRAN ABSOLUTE AUTO 0.03 10^3/uL (0.00-0.49); IMMATURE GRAN PERCENT AUTO 0.4 % (0.0-4.9); LYMPHOCYTES ABSOLUTE AUTO 1.12 10^3/uL (0.60-5.00); MEAN CORPUSCULAR HEMOGLOBIN 26.8 pg (27.0-32.0); MEAN CORPUSCULAR HGB CONC 32.1 g/dL (32.0-36.0); MEAN CORPUSCULAR VOLUME 83.6 fL (83.0-97.0); MONOCYTES ABSOLUTE AUTO 0.47 10^3/uL (0.00-1.50); MONOCYTES PERCENT AUTO 6.7 % (0-10); NEUTROPHILS ABSOLUTE AUTO 5.27 x10^3/uL (1.80-8.00); NEUTROPHILS PERCENT AUTO 75.2 % (41-71); PLATELET COUNT,PLT 224 10^3/uL (150-400)
[2023-04-07 07:43] LABS: BILIRUBIN TOTAL 0.4 mg/dL (0.0-1.0); C-REACTIVE PROTEIN 1.46 mg/dL (<=0.30); CALCIUM 8.9 mg/dL (8.4-10.1); CREATININE 0.7 mg/dL (0.6-1.0); EST CRCL DRUG DOSING (CG) 66.33 mL/min; PROTEIN TOTAL,TP 5.5 g/dL (6.4-8.2)
[2023-04-07] MEDS: Metoprolol Succinate 100 MG Tab.ER PO SCH (07:43)
[2023-04-07] MEDS: Cyanocobalamin (Vitamin B12) 1,000 MCG Tab PO SCH (07:43)
[2023-04-07] MEDS: Potassium Chloride 10 MEQ Tab.ER PO SCH ×2 (07:43→17:31)
[2023-04-07] MEDS: Pregabalin 50 MG Cap PO SCH ×2 (07:43→19:35)
[2023-04-07] MEDS: amLODIPine 2.5 MG Tab PO SCH (07:43)
[2023-04-07] MEDS: Furosemide 40 MG Tab PO SCH (07:44)
[2023-04-07] MEDS: Cholecalciferol (Vitamin D3) 25 MCG Tab PO SCH (07:44)
[2023-04-07] MEDS: metFORMIN 500 MG Tab PO SCH ×2 (07:44→17:31)
[2023-04-07] MEDS: Sertraline 25 MG Tab PO SCH (07:44)
[2023-04-07] MEDS: Apixaban 5 MG Tab PO SCH ×2 (07:44→19:35)
[2023-04-07] MEDS: Montelukast 10 MG Tab PO SCH (07:44)
[2023-04-07] MEDS: Folic Acid 1 MG Tab PO SCH (07:44)
[2023-04-07] MEDS: Lisinopril 10 MG Tab PO SCH (07:44)
[2023-04-07] MEDS: Aspirin 81 MG Tab.EC PO SCH (07:45)
[2023-04-07] MEDS: Calcium Carbonate/Vitamin D3 1250 MG-5 MCG Tab PO SCH (07:45)
[2023-04-07] MEDS: Isosorbide Mononitrate 30 MG Tab.ER PO SCH ×2 (07:51→15:52)
[2023-04-07] MEDS ORDERED: Non-Formulary Medication 1 Each (Empagliflozin [Jardiance] 10 MG Tablet) PO SCH (08:00)
[2023-04-07] MEDS ORDERED: Non-Formulary Medication 1 Each (Rosuvastatin Calcium [Rosuvastatin Calcium] 40 MG Tablet) PO SCH (08:00)
[2023-04-07] MEDS ORDERED: Potassium Chloride 10 MEQ Tab.ER PO ONE (11:00)
[2023-04-07] MEDS: Digoxin 125 MCG Tab PO SCH (11:53)
[2023-04-07] MEDS: Levofloxacin/Dextrose 5%-Water 750 MG in Premix Bag 1 BAG IV SCH (19:36)
[2023-04-08] MEDS: Acetaminophen 325 MG Tab PO PRN ×2 (00:17→19:32)
[2023-04-08] MEDS: Sodium Chloride 0.9% 1,000 ML IV SCH (04:15)
[2023-04-08] MEDS: Levothyroxine 50 MCG Tab PO SCH (06:53)
[2023-04-08] MEDS: Pantoprazole 40 MG Tab.CR PO SCH (06:53)
[2023-04-08 07:40] LABS: ALBUMIN 1.9 g/dL (3.4-5.0); BILIRUBIN TOTAL 0.3 mg/dL (0.0-1.0); C-REACTIVE PROTEIN 0.97 mg/dL (<=0.30); CREATININE 0.6 mg/dL (0.6-1.0); EST CRCL DRUG DOSING (CG) 77.38 mL/min; POTASSIUM,K 3.9 mEq/L (3.5-5.0); PROTEIN TOTAL,TP 5.1 g/dL (6.4-8.2)
[2023-04-08] MEDS: amLODIPine 2.5 MG Tab PO SCH (07:57)
[2023-04-08] MEDS: Pregabalin 50 MG Cap PO SCH ×2 (07:57→19:22)
[2023-04-08] MEDS: Potassium Chloride 10 MEQ Tab.ER PO SCH ×2 (07:58→17:23)
[2023-04-08] MEDS: Metoprolol Succinate 100 MG Tab.ER PO SCH (07:58)
[2023-04-08] MEDS: Apixaban 5 MG Tab PO SCH ×2 (07:59→19:23)
[2023-04-08] MEDS: Cyanocobalamin (Vitamin B12) 1,000 MCG Tab PO SCH (07:59)
[2023-04-08] MEDS: Lisinopril 10 MG Tab PO SCH (07:59)
[2023-04-08] MEDS: Montelukast 10 MG Tab PO SCH (08:00)
[2023-04-08] MEDS: metFORMIN 500 MG Tab PO SCH ×2 (08:00→17:23)
[2023-04-08] MEDS: Folic Acid 1 MG Tab PO SCH (08:01)
[2023-04-08] MEDS: Aspirin 81 MG Tab.EC PO SCH (08:01)
[2023-04-08] MEDS: Cholecalciferol (Vitamin D3) 25 MCG Tab PO SCH (08:01)
[2023-04-08] MEDS: Calcium Carbonate/Vitamin D3 1250 MG-5 MCG Tab PO SCH (08:01)
[2023-04-08] MEDS: Furosemide 40 MG Tab PO SCH (08:01)
[2023-04-08] MEDS: Sertraline 25 MG Tab PO SCH (08:01)
[2023-04-08] MEDS: Isosorbide Mononitrate 30 MG Tab.ER PO SCH ×2 (08:07→15:41)
[2023-04-08] MEDS ORDERED: Fluconazole 100 MG Tab PO ONE (10:15)
[2023-04-08] MEDS: Digoxin 125 MCG Tab PO SCH (11:53)
[2023-04-08] MEDS: Levofloxacin/Dextrose 5%-Water 750 MG in Premix Bag 1 BAG IV SCH (19:18)
[2023-04-09] MEDS: Levothyroxine 50 MCG Tab PO SCH (07:26)
[2023-04-09] MEDS: Pantoprazole 40 MG Tab.CR PO SCH (07:27)
[2023-04-09] MEDS: Potassium Chloride 10 MEQ Tab.ER PO SCH (07:37)
[2023-04-09] MEDS: Apixaban 5 MG Tab PO SCH (07:37)
[2023-04-09] MEDS: Aspirin 81 MG Tab.EC PO SCH (07:37)
[2023-04-09] MEDS: Folic Acid 1 MG Tab PO SCH (07:37)
[2023-04-09] MEDS: Sertraline 25 MG Tab PO SCH (07:38)
[2023-04-09] MEDS: Pregabalin 50 MG Cap PO SCH (07:38)
[2023-04-09] MEDS: Metoprolol Succinate 100 MG Tab.ER PO SCH (07:38)
[2023-04-09] MEDS: Montelukast 10 MG Tab PO SCH (07:39)
[2023-04-09] MEDS: Lisinopril 10 MG Tab PO SCH (07:39)
[2023-04-09] MEDS: Furosemide 40 MG Tab PO SCH (07:39)
[2023-04-09] MEDS: metFORMIN 500 MG Tab PO SCH (07:40)
[2023-04-09] MEDS: amLODIPine 2.5 MG Tab PO SCH (07:40)
[2023-04-09] MEDS: Cholecalciferol (Vitamin D3) 25 MCG Tab PO SCH (07:41)
[2023-04-09] MEDS: Cyanocobalamin (Vitamin B12) 1,000 MCG Tab PO SCH (07:41)
[2023-04-09] MEDS: Calcium Carbonate/Vitamin D3 1250 MG-5 MCG Tab PO SCH (07:42)
[2023-04-09] MEDS: Isosorbide Mononitrate 30 MG Tab.ER PO SCH (07:43)
[2023-04-09 07:44] VITALS: BP 135/60
[2023-04-09 08:44] LABS: ALBUMIN 2.2 g/dL (3.4-5.0); BILIRUBIN TOTAL 0.3 mg/dL (0.0-1.0); C-REACTIVE PROTEIN 0.72 mg/dL (<=0.30); CALCIUM 9.7 mg/dL (8.4-10.1); CREATININE 0.6 mg/dL (0.6-1.0); EST CRCL DRUG DOSING (CG) 77.38 mL/min; PROTEIN TOTAL,TP 5.8 g/dL (6.4-8.2)
[2023-04-09] MEDS: Digoxin 125 MCG Tab PO SCH (11:59)
[2023-04-09 12:02] VITALS: PULSE 64
== END 2023-04-09 16:18 | disposition home or self-care (01) | DRG 690 ==
LOC: CC.ED 15:10 → CC.MS 16:38 → UNDOADMOB 16:38 → OBSVTOIN 17:00 → INTOOBSV 17:00 → CC.MS 17:00 → OBSVTOIN 19:29 → CC.MS 19:29
PROVIDERS: ADMIT Nurse Practitioner Family; ATTEND Nurse Practitioner Family
DX: N39.0 Urinary tract infection, site not specified (principal); E86.0 Dehydration; I13.0 Hypertensive heart and chronic kidney disease with heart failure and stage 1 through stage 4 chronic kidney disease, or unspecified chronic kidney disease; E11.22 Type 2 diabetes mellitus with diabetic chronic kidney disease; N18.9 Chronic kidney disease, unspecified; I50.9 Heart failure, unspecified; F32.A Depression, unspecified; K21.9 Gastro-esophageal reflux disease without esophagitis; E07.9 Disorder of thyroid, unspecified; E78.00 Pure hypercholesterolemia, unspecified; F43.21 Adjustment disorder with depressed mood; E87.6 Hypokalemia; I25.2 Old myocardial infarction; J44.9 Chronic obstructive pulmonary disease, unspecified; Z79.84 Long term (current) use of oral hypoglycemic drugs; M19.90 Unspecified osteoarthritis, unspecified site; E03.9 Hypothyroidism, unspecified; Z88.8 Allergy status to other drugs, medicaments and biological substances; Z91.040 Latex allergy status; Z79.899 Other long term (current) drug therapy; Z95.0 Presence of cardiac pacemaker; Z90.49 Acquired absence of other specified parts of digestive tract; Z95.5 Presence of coronary angioplasty implant and graft; Z68.24 Body mass index [BMI] 24.0-24.9, adult; Z79.82 Long term (current) use of aspirin; Z79.4 Long term (current) use of insulin; Z98.890 Other specified postprocedural states
CPT/HCPCS: 36415; 71045; 80053; 83735; 85025; 86140; 99285; J7030; 81001; 82947; 87086; 97110-GP; 97161-GP; 99222; 99232; 99239; A9270-GY; J1956

== ENCOUNTER 2023-05-23 14:24 | Observation (INO) | payer MEDICARE ==
[2023-05-23 15:10] LABS: BASOPHILS ABSOLUTE AUTO 0.02 10^3/uL (0.00-0.50); BASOPHILS PERCENT AUTO 0.3 % (0-1); EOSINOPHILS PERCENT AUTO 2.8 % (0-6); HEMATOCRIT 34.9 % (37.0-47.0); HEMOGLOBIN 11.4 g/dL (12.0-16.0); IMMATURE GRAN ABSOLUTE AUTO 0.03 10^3/uL (0.00-0.49); IMMATURE GRAN PERCENT AUTO 0.4 % (0.0-4.9); LYMPHOCYTES ABSOLUTE AUTO 1.32 10^3/uL (0.60-5.00); LYMPHOCYTES PERCENT AUTO 18.4 % (24-44); MEAN CORPUSCULAR HEMOGLOBIN 27.7 pg (27.0-32.0); MEAN CORPUSCULAR HGB CONC 32.7 g/dL (32.0-36.0); MEAN CORPUSCULAR VOLUME 84.9 fL (83.0-97.0); MONOCYTES ABSOLUTE AUTO 0.43 10^3/uL (0.00-1.50); NEUTROPHILS ABSOLUTE AUTO 5.16 x10^3/uL (1.80-8.00); NEUTROPHILS PERCENT AUTO 72.1 % (41-71); PLATELET COUNT,PLT 254 10^3/uL (150-400); RED BLOOD CELL COUNT 4.11 x10^6/uL (4.00-5.50); WHITE BLOOD CELL COUNT,WBC 7.2 10^3/uL (4.0-11.0)
[2023-05-23 15:15] LABS: APPEARANCE,URINE CLEAR (CLEAR); BILIRUBIN,URINE NEGATIVE (NEGATIVE); COLOR,URINE YELLOW (YELLOW); GLUCOSE,URINE NEGATIVE (NEGATIVE); KETONES,URINE NEGATIVE (NEGATIVE); LEUKOCYTE ESTERASE,URINE SMALL (NEGATIVE); NITRITE,URINE NEGATIVE (NEGATIVE); OCCULT BLOOD,URINE NEGATIVE (NEGATIVE); PH,URINE 5.5 (4.5-8.0); PROTEIN,URINE NEGATIVE (NEGATIVE); UROBILINOGEN,URINE 0.2 EU/dL (0.2-1.0)
[2023-05-23 15:24] LABS: ALBUMIN 2.7 g/dL (3.4-5.0); BILIRUBIN TOTAL 0.6 mg/dL (0.0-1.0); C-REACTIVE PROTEIN 0.58 mg/dL (<=0.30); CALCIUM 10.7 mg/dL (8.4-10.1); CREATININE 1.1 mg/dL (0.6-1.0); EST CRCL DRUG DOSING (CG) 43.91 mL/min; POTASSIUM,K 4.8 mEq/L (3.5-5.0); PROTEIN TOTAL,TP 6.5 g/dL (6.4-8.2)
[2023-05-23 15:27] LABS: RBC,URINE 0-5 /HPF (0-5)
[2023-05-23 15:28] LABS: BACTERIA,URINE FEW /HPF (NOT SEEN); EPITHELIAL CELLS,URINE FEW /HPF (NOT SEEN)
[2023-05-23] MEDS ORDERED: Sodium Chloride 0.9% 10 ML Syringe FLUSH PRN (16:00)
[2023-05-23] MEDS: Sodium Chloride 0.9% 1,000 ML IV SCH (16:08)
[2023-05-23] MEDS ORDERED: Acetaminophen 325 MG Tab PO PRN (16:13)
[2023-05-23] MEDS ORDERED: Furosemide 40 MG/4 ML VIAL IVPUSH ONE ×2 (16:13→16:40)
[2023-05-23] MEDS ORDERED: Ondansetron 4 MG Tab.DIS PO PRN (16:13)
[2023-05-23] MEDS ORDERED: Ondansetron 4 MG/2 ML SDV IV PRN (16:13)
[2023-05-23] MEDS ORDERED: Isosorbide Mononitrate 30 MG Tab.ER PO SCH (17:30)
[2023-05-23] MEDS: Pregabalin 50 MG Cap PO SCH (19:30)
[2023-05-23] MEDS: metFORMIN 500 MG Tab PO SCH (19:30)
[2023-05-23] MEDS: Sulfamethoxazole/Trimethoprim 800-160 MG Tab PO SCH (19:51)
[2023-05-23] MEDS ORDERED: Sertraline 25 MG Tab PO SCH (20:00)
[2023-05-23] MEDS ORDERED: Montelukast 10 MG Tab PO SCH (20:00)
[2023-05-23] MEDS ORDERED: Take Home: Sulfamethoxazole/Trimethoprim 800-160 MG Tab, 6 Tab Pack PO SCH (20:00)
[2023-05-24] MEDS: Sodium Chloride 0.9% 1,000 ML IV SCH (02:19)
[2023-05-24] MEDS ORDERED: Pantoprazole 40 MG Tab.CR PO SCH (07:00)
[2023-05-24] MEDS ORDERED: Levothyroxine 50 MCG Tab PO SCH (07:00)
[2023-05-24 07:22] LABS: BASOPHILS ABSOLUTE AUTO 0.02 10^3/uL (0.00-0.50); BASOPHILS PERCENT AUTO 0.4 % (0-1); EOSINOPHILS ABSOLUTE AUTO 0.18 10^3/uL (0.00-1.50); EOSINOPHILS PERCENT AUTO 3.7 % (0-6); HEMATOCRIT 30.4 % (37.0-47.0); HEMOGLOBIN 10.1 g/dL (12.0-16.0); IMMATURE GRAN ABSOLUTE AUTO 0.02 10^3/uL (0.00-0.49); IMMATURE GRAN PERCENT AUTO 0.4 % (0.0-4.9); LYMPHOCYTES ABSOLUTE AUTO 1.15 10^3/uL (0.60-5.00); LYMPHOCYTES PERCENT AUTO 23.8 % (24-44); MEAN CORPUSCULAR HEMOGLOBIN 28.2 pg (27.0-32.0); MEAN CORPUSCULAR HGB CONC 33.2 g/dL (32.0-36.0); MEAN CORPUSCULAR VOLUME 84.9 fL (83.0-97.0); MONOCYTES ABSOLUTE AUTO 0.31 10^3/uL (0.00-1.50); MONOCYTES PERCENT AUTO 6.4 % (0-10); NEUTROPHILS ABSOLUTE AUTO 3.16 x10^3/uL (1.80-8.00); NEUTROPHILS PERCENT AUTO 65.3 % (41-71); PLATELET COUNT,PLT 181 10^3/uL (150-400); RED BLOOD CELL COUNT 3.58 x10^6/uL (4.00-5.50); WHITE BLOOD CELL COUNT,WBC 4.8 10^3/uL (4.0-11.0)
[2023-05-24 07:46] LABS: CALCIUM 9.7 mg/dL (8.4-10.1); CREATININE 0.9 mg/dL (0.6-1.0); EST CRCL DRUG DOSING (CG) 53.67 mL/min; POTASSIUM,K 4.3 mEq/L (3.5-5.0)
[2023-05-24] MEDS ORDERED: Aspirin 81 MG Tab.EC PO SCH (08:00)
[2023-05-24] MEDS ORDERED: Furosemide 40 MG Tab PO SCH (08:00)
[2023-05-24] MEDS ORDERED: Metoprolol Succinate 25 MG Tab.ER PO SCH (08:00)
[2023-05-24] MEDS ORDERED: Non-Formulary Medication 1 Each (Mirabegron [Myrbetriq] 25 MG Tab.Er) PO SCH (08:00)
[2023-05-24] MEDS ORDERED: Cholecalciferol (Vitamin D3) 25 MCG Tab PO SCH (08:00)
[2023-05-24] MEDS ORDERED: Calcium Carbonate 500 MG Tab.Chew PO SCH (08:00)
[2023-05-24] MEDS ORDERED: Non-Formulary Medication 1 Each (Rosuvastatin Calcium [Rosuvastatin Calcium] 40 MG Tablet) PO SCH (08:00)
[2023-05-24] MEDS: metFORMIN 500 MG Tab PO SCH (08:20)
[2023-05-24] MEDS: Sulfamethoxazole/Trimethoprim 800-160 MG Tab PO SCH (08:20)
[2023-05-24] MEDS: Pregabalin 50 MG Cap PO SCH (08:20)
[2023-05-24] MEDS ORDERED: Folic Acid 1 MG Tab PO SCH ×2 (08:30)
[2023-05-24] MEDS ORDERED: DABIGATRAN ETEXILATE MESYLATE 150 MG PO SCH (10:15)
[2023-05-24 16:42] VITALS: BP 137/58; PULSE 62
[2023-05-24] MEDS ORDERED: Digoxin 250 MCG Tab PO SCH (20:00)
== END 2023-05-24 17:10 | disposition home or self-care (01) ==
LOC: CC.ED 14:24 → CC.MS 16:13 → UNDOADMOB 16:14
PROVIDERS: ADMIT Nurse Practitioner Family; ATTEND Nurse Practitioner Family
DX: R53.1 Weakness (principal); E86.0 Dehydration; I11.0 Hypertensive heart disease with heart failure; I50.9 Heart failure, unspecified; J44.9 Chronic obstructive pulmonary disease, unspecified; E11.9 Type 2 diabetes mellitus without complications; E03.9 Hypothyroidism, unspecified; G89.29 Other chronic pain; M54.9 Dorsalgia, unspecified; M79.7 Fibromyalgia; E78.00 Pure hypercholesterolemia, unspecified; I25.2 Old myocardial infarction; Z95.0 Presence of cardiac pacemaker; Z91.040 Latex allergy status; Z88.8 Allergy status to other drugs, medicaments and biological substances; Z79.890 Hormone replacement therapy; Z79.82 Long term (current) use of aspirin; Z79.899 Other long term (current) drug therapy; Z79.84 Long term (current) use of oral hypoglycemic drugs; Z90.49 Acquired absence of other specified parts of digestive tract; Z95.5 Presence of coronary angioplasty implant and graft; Z87.440 Personal history of urinary (tract) infections; W19.XXXA Unspecified fall, initial encounter
CPT/HCPCS: 36415; 70450; 71045; 74176; 80048; 80053; 81001; 83880; 84484; 85025; 86140; 93005; 93010; 96361; 96374; 97161-GP; 99285; A9270-GY; G0378; J1940; J7030

== ENCOUNTER 2023-06-06 15:09 | Observation (INO) | payer MEDICARE ==
[2023-06-06 15:38] LABS: BASOPHILS ABSOLUTE AUTO 0.03 10^3/uL (0.00-0.50); BASOPHILS PERCENT AUTO 0.3 % (0-1); EOSINOPHILS ABSOLUTE AUTO 0.03 10^3/uL (0.00-1.50); EOSINOPHILS PERCENT AUTO 0.3 % (0-6); HEMATOCRIT 37.1 % (37.0-47.0); HEMOGLOBIN 12.3 g/dL (12.0-16.0); IMMATURE GRAN ABSOLUTE AUTO 0.02 10^3/uL (0.00-0.49); IMMATURE GRAN PERCENT AUTO 0.2 % (0.0-4.9); LYMPHOCYTES ABSOLUTE AUTO 1.07 10^3/uL (0.60-5.00); LYMPHOCYTES PERCENT AUTO 11.2 % (24-44); MEAN CORPUSCULAR HEMOGLOBIN 28.5 pg (27.0-32.0); MEAN CORPUSCULAR HGB CONC 33.2 g/dL (32.0-36.0); MEAN CORPUSCULAR VOLUME 86.1 fL (83.0-97.0); MONOCYTES ABSOLUTE AUTO 0.46 10^3/uL (0.00-1.50); MONOCYTES PERCENT AUTO 4.8 % (0-10); NEUTROPHILS ABSOLUTE AUTO 7.98 x10^3/uL (1.80-8.00); NEUTROPHILS PERCENT AUTO 83.2 % (41-71); PLATELET COUNT,PLT 238 10^3/uL (150-400); RED BLOOD CELL COUNT 4.31 x10^6/uL (4.00-5.50); WHITE BLOOD CELL COUNT,WBC 9.6 10^3/uL (4.0-11.0)
[2023-06-06 15:57] LABS: APPEARANCE,URINE CLEAR (CLEAR); BILIRUBIN,URINE NEGATIVE (NEGATIVE); COLOR,URINE YELLOW (YELLOW); GLUCOSE,URINE NEGATIVE (NEGATIVE); KETONES,URINE NEGATIVE (NEGATIVE); LEUKOCYTE ESTERASE,URINE SMALL (NEGATIVE); NITRITE,URINE NEGATIVE (NEGATIVE); OCCULT BLOOD,URINE NEGATIVE (NEGATIVE); PH,URINE 5.5 (4.5-8.0); PROTEIN,URINE NEGATIVE (NEGATIVE); UROBILINOGEN,URINE 0.2 EU/dL (0.2-1.0)
[2023-06-06 16:02] LABS: ALANINE AMINOTRANSFERASE,ALT 29 U/L (12-78); ALBUMIN 3.1 g/dL (3.4-5.0); ALKALINE PHOSPHATASE 183 U/L (46-116); ASPARTATE AMNIOTRANSFERASE,AST 22 U/L (15-37); BILIRUBIN TOTAL 0.7 mg/dL (0.0-1.0); BLOOD UREA NITROGEN,BUN 20 mg/dL (7-18); CARBON DIOXIDE,CO2 28 mmol/L (21-32); CHLORIDE,CL 97 mEq/L (98-106); CREATININE 1.2 mg/dL (0.6-1.0); ESTIMATED GFR 48 mL/min (>=60); GLUCOSE RANDOM 117 mg/dL (75-99); MAGNESIUM 1.6 mg/dL (1.8-2.4); POTASSIUM,K 4.2 mEq/L (3.5-5.0); PRO B-TYPE NATRIUR PEPT,BNPPRO 3475 pg/mL (0-1000); SODIUM,NA 134 mEq/L (136-145)
[2023-06-06 16:04] LABS: BACTERIA,URINE FEW /HPF (NOT SEEN); EPITHELIAL CELLS,URINE OCCASIONAL /HPF (NOT SEEN); RBC,URINE 0-5 /HPF (0-5); WBC CLUMPS,URINE FEW /HPF (NOT SEEN); WBC,URINE 20-30 /HPF (0-5)
[2023-06-06] MEDS ORDERED: Sodium Chloride 0.9% 1,000 ML IV ONE (17:53)
[2023-06-06] MEDS ORDERED: Polyethylene Glycol 3350 Powder 17 GM Packet PO PRN (17:53)
[2023-06-06] MEDS ORDERED: Ondansetron 4 MG Tab.DIS PO PRN (17:53)
[2023-06-06] MEDS ORDERED: Docusate Sodium 100 MG Cap PO PRN (17:53)
[2023-06-06] MEDS ORDERED: Acetaminophen 325 MG Tab PO PRN (17:53)
[2023-06-06] MEDS ORDERED: Ondansetron 4 MG/2 ML SDV IV PRN (17:53)
[2023-06-06] MEDS: Furosemide 20 MG/2 ML VIAL IVPUSH SCH (18:51)
[2023-06-06] MEDS ORDERED: Digoxin 250 MCG Tab PO SCH (20:00)
[2023-06-06] MEDS ORDERED: Calcium Carbonate 500 MG Tab.Chew PO SCH (20:00)
[2023-06-06] MEDS ORDERED: Non-Formulary Medication 1 Each (Metoprolol Succinate [Toprol Xl 50mg] 50 MG Tab.Er) PO SCH (20:00)
[2023-06-06] MEDS ORDERED: Montelukast 10 MG Tab PO SCH (20:00)
[2023-06-06] MEDS ORDERED: Sertraline 25 MG Tab PO SCH (20:00)
[2023-06-06] MEDS ORDERED: Isosorbide Mononitrate 30 MG Tab.ER PO SCH (20:00)
[2023-06-06] MEDS ORDERED: Non-Formulary Medication 1 Each (Mirabegron [Myrbetriq] 25 MG Tab.Er) PO SCH (20:00)
[2023-06-06] MEDS ORDERED: Non-Formulary Medication 1 Each (Cetirizine [Zyrtec] 10 MG Tablet) PO SCH (20:00)
[2023-06-06] MEDS ORDERED: DABIGATRAN ETEXILATE MESYLATE 75 MG PO SCH (20:00)
[2023-06-06] MEDS ORDERED: Non-Formulary Medication 1 Each (Rosuvastatin Calcium [Rosuvastatin Calcium] 40 MG Tablet) PO SCH (20:00)
[2023-06-06] MEDS: Pregabalin 50 MG Cap PO SCH (21:05)
[2023-06-06] MEDS: Beta-Carotene (Vitamin A) w/Vitamin C & E plus Minerals Tab PO SCH (21:05)
[2023-06-06] MEDS ORDERED: metFORMIN 500 MG Tab ONE (21:54)
[2023-06-06] MEDS: metFORMIN 500 MG Tab PO SCH (21:55)
[2023-06-07] MEDS ORDERED: Levothyroxine 50 MCG Tab PO SCH (07:00)
[2023-06-07] MEDS ORDERED: Pantoprazole 40 MG Tab.CR PO SCH (07:00)
[2023-06-07 07:49] LABS: BASOPHILS ABSOLUTE AUTO 0.02 10^3/uL (0.00-0.50); BASOPHILS PERCENT AUTO 0.3 % (0-1); EOSINOPHILS ABSOLUTE AUTO 0.12 10^3/uL (0.00-1.50); EOSINOPHILS PERCENT AUTO 1.9 % (0-6); HEMATOCRIT 30.1 % (37.0-47.0); HEMOGLOBIN 10.2 g/dL (12.0-16.0); IMMATURE GRAN ABSOLUTE AUTO 0.01 10^3/uL (0.00-0.49); IMMATURE GRAN PERCENT AUTO 0.2 % (0.0-4.9); LYMPHOCYTES ABSOLUTE AUTO 1.16 10^3/uL (0.60-5.00); LYMPHOCYTES PERCENT AUTO 18.7 % (24-44); MEAN CORPUSCULAR HEMOGLOBIN 29.1 pg (27.0-32.0); MEAN CORPUSCULAR HGB CONC 33.9 g/dL (32.0-36.0); MEAN CORPUSCULAR VOLUME 85.8 fL (83.0-97.0); MONOCYTES ABSOLUTE AUTO 0.52 10^3/uL (0.00-1.50); MONOCYTES PERCENT AUTO 8.4 % (0-10); NEUTROPHILS ABSOLUTE AUTO 4.36 x10^3/uL (1.80-8.00); NEUTROPHILS PERCENT AUTO 70.5 % (41-71); PLATELET COUNT,PLT 188 10^3/uL (150-400); RED BLOOD CELL COUNT 3.51 x10^6/uL (4.00-5.50); WHITE BLOOD CELL COUNT,WBC 6.2 10^3/uL (4.0-11.0)
[2023-06-07] MEDS ORDERED: Aspirin 81 MG Tab.EC PO SCH (08:00)
[2023-06-07] MEDS ORDERED: Furosemide 40 MG Tab PO SCH (08:00)
[2023-06-07] MEDS ORDERED: Metoprolol Succinate 100 MG Tab.ER PO SCH (08:00)
[2023-06-07 08:02] LABS: CALCIUM 9.2 mg/dL (8.4-10.1); CREATININE 1.1 mg/dL (0.6-1.0); EST CRCL DRUG DOSING (CG) 43.77 mL/min; MAGNESIUM 1.4 mg/dL (1.8-2.4); POTASSIUM,K 4.2 mEq/L (3.5-5.0)
[2023-06-07] MEDS: Pregabalin 50 MG Cap PO SCH (08:13)
[2023-06-07] MEDS: Beta-Carotene (Vitamin A) w/Vitamin C & E plus Minerals Tab PO SCH (08:13)
[2023-06-07] MEDS: metFORMIN 500 MG Tab PO SCH (08:14)
[2023-06-07 08:24] VITALS: PULSE 72
[2023-06-07] MEDS: Furosemide 20 MG/2 ML VIAL IVPUSH SCH (10:13)
[2023-06-07 11:55] VITALS: BP 122/58
== END 2023-06-07 14:30 | disposition home or self-care (01) ==
LOC: CC.ED 15:09 → CC.MS 16:25 → UNDOADMOB 16:52 → CC.MS 16:52
PROVIDERS: ADMIT Nurse Practitioner; ATTEND Nurse Practitioner
DX: N17.9 Acute kidney failure, unspecified (principal); E86.0 Dehydration; R62.7 Adult failure to thrive; I13.0 Hypertensive heart and chronic kidney disease with heart failure and stage 1 through stage 4 chronic kidney disease, or unspecified chronic kidney disease; E11.22 Type 2 diabetes mellitus with diabetic chronic kidney disease; I50.9 Heart failure, unspecified; N18.9 Chronic kidney disease, unspecified; J44.9 Chronic obstructive pulmonary disease, unspecified; E78.00 Pure hypercholesterolemia, unspecified; I25.2 Old myocardial infarction; M19.90 Unspecified osteoarthritis, unspecified site; E03.9 Hypothyroidism, unspecified; E55.9 Vitamin D deficiency, unspecified; M54.9 Dorsalgia, unspecified; G89.29 Other chronic pain; M79.7 Fibromyalgia; Z95.0 Presence of cardiac pacemaker; Z88.8 Allergy status to other drugs, medicaments and biological substances; Z91.040 Latex allergy status; Z79.890 Hormone replacement therapy; Z79.84 Long term (current) use of oral hypoglycemic drugs; Z79.82 Long term (current) use of aspirin; Z79.899 Other long term (current) drug therapy; Z95.5 Presence of coronary angioplasty implant and graft
CPT/HCPCS: 36415; 71045; 80048; 80053; 81001; 83735; 83880; 85025; 86140; 87086; 96374; 97164-GP; 99285; A9270-GY; G0378; J1940; J7030

== ENCOUNTER 2023-06-21 13:21 | Inpatient (IN) | payer MEDICARE ==
[2023-06-21 13:32] LABS: BASOPHILS ABSOLUTE AUTO 0.02 10^3/uL (0.00-0.50); BASOPHILS PERCENT AUTO 0.3 % (0-1); EOSINOPHILS ABSOLUTE AUTO 0.19 10^3/uL (0.00-1.50); EOSINOPHILS PERCENT AUTO 2.5 % (0-6); IMMATURE GRAN ABSOLUTE AUTO 0.01 10^3/uL (0.00-0.49); IMMATURE GRAN PERCENT AUTO 0.1 % (0.0-4.9); LYMPHOCYTES ABSOLUTE AUTO 1.04 10^3/uL (0.60-5.00); LYMPHOCYTES PERCENT AUTO 13.4 % (24-44); MEAN CORPUSCULAR HGB CONC 32.4 g/dL (32.0-36.0); MEAN CORPUSCULAR VOLUME 89.7 fL (83.0-97.0); MONOCYTES ABSOLUTE AUTO 0.47 10^3/uL (0.00-1.50); MONOCYTES PERCENT AUTO 6.1 % (0-10); NEUTROPHILS ABSOLUTE AUTO 6.02 x10^3/uL (1.80-8.00); NEUTROPHILS PERCENT AUTO 77.6 % (41-71); PLATELET COUNT,PLT 229 10^3/uL (150-400); RED BLOOD CELL COUNT 3.79 x10^6/uL (4.00-5.50); WHITE BLOOD CELL COUNT,WBC 7.8 10^3/uL (4.0-11.0)
[2023-06-21 13:41] LABS: APPEARANCE,URINE SLIGHTLY CLOUDY (CLEAR); BILIRUBIN,URINE NEGATIVE (NEGATIVE); COLOR,URINE YELLOW (YELLOW); GLUCOSE,URINE NEGATIVE (NEGATIVE); KETONES,URINE NEGATIVE (NEGATIVE); LEUKOCYTE ESTERASE,URINE MODERATE (NEGATIVE); NITRITE,URINE POSITIVE (NEGATIVE); OCCULT BLOOD,URINE TRACE-INTACT (NEGATIVE); PH,URINE 5.5 (4.5-8.0); PROTEIN,URINE NEGATIVE (NEGATIVE); UROBILINOGEN,URINE 0.2 EU/dL (0.2-1.0)
[2023-06-21 13:47] LABS: ALANINE AMINOTRANSFERASE,ALT 18 U/L (12-78); ALBUMIN 2.4 g/dL (3.4-5.0); ALKALINE PHOSPHATASE 148 U/L (46-116); ASPARTATE AMNIOTRANSFERASE,AST 19 U/L (15-37); BILIRUBIN TOTAL 0.8 mg/dL (0.0-1.0); BLOOD UREA NITROGEN,BUN 13 mg/dL (7-18); C-REACTIVE PROTEIN 2.07 mg/dL (<=0.30); CALCIUM 9.7 mg/dL (8.4-10.1); CARBON DIOXIDE,CO2 33 mmol/L (21-32); CHLORIDE,CL 98 mEq/L (98-106); CREATININE 0.9 mg/dL (0.6-1.0); GLUCOSE RANDOM 110 mg/dL (75-99); MAGNESIUM 1.7 mg/dL (1.8-2.4); POTASSIUM,K 4.7 mEq/L (3.5-5.0); SODIUM,NA 136 mEq/L (136-145)
[2023-06-21 14:06] LABS: ESTIMATED GFR 68 mL/min (>=60)
[2023-06-21 14:11] LABS: BACTERIA,URINE MODERATE /HPF (NOT SEEN); RBC,URINE 0-5 /HPF (0-5); SQUAMOUS EPITHELIAL CELLS,UR FEW /HPF (NOT SEEN); WBC,URINE >100 /HPF (0-5)
[2023-06-21] MEDS ORDERED: Acetaminophen 325 MG Tab PO PRN (14:49)
[2023-06-21] MEDS ORDERED: Ondansetron 4 MG Tab.DIS PO PRN (14:49)
[2023-06-21] MEDS ORDERED: Ondansetron 4 MG/2 ML SDV IV PRN (14:49)
[2023-06-21] MEDS ORDERED: Sodium Chloride 0.9% 10 ML Syringe FLUSH PRN (14:49)
[2023-06-21 16:07] LABS: CORONAVIRUS COVID-19 NAA NEGATIVE (NEGATIVE)
[2023-06-21 16:08] LABS: INFLUENZA A NAA NEGATIVE (NEGATIVE); INFLUENZA B NAA NEGATIVE (NEGATIVE)
[2023-06-21] MEDS: Levofloxacin/Dextrose 5%-Water 750 MG in Premix Bag 1 BAG IV SCH (16:10)
[2023-06-21] MEDS: Albuterol/Ipratropium 3.0-0.5 MG/3 ML Neb Soln NEB SCH ×2 (16:10→19:46)
[2023-06-21] MEDS: metFORMIN 500 MG Tab PO SCH (17:27)
[2023-06-21] MEDS: DABIGATRAN ETEXILATE MESYLATE 150 MG PO SCH (17:28)
[2023-06-21] MEDS: Rosuvastatin 10 MG Tab PO SCH (19:44)
[2023-06-21] MEDS: Sertraline 100 MG Tab PO SCH (19:45)
[2023-06-21] MEDS: MIRABEGRON 25 MG PO SCH (19:45)
[2023-06-21] MEDS: Loratadine 10 MG Tab PO SCH (19:45)
[2023-06-21] MEDS: Pregabalin 100 MG Cap PO SCH (19:45)
[2023-06-21] MEDS: Digoxin 250 MCG Tab PO SCH (19:45)
[2023-06-21] MEDS: Montelukast 10 MG Tab PO SCH (19:45)
[2023-06-22 07:31] LABS: BASOPHILS ABSOLUTE AUTO 0.01 10^3/uL (0.00-0.50); BASOPHILS PERCENT AUTO 0.2 % (0-1); EOSINOPHILS PERCENT AUTO 1.8 % (0-6); HEMATOCRIT 27.7 % (37.0-47.0); HEMOGLOBIN 9.1 g/dL (12.0-16.0); IMMATURE GRAN ABSOLUTE AUTO 0.01 10^3/uL (0.00-0.49); IMMATURE GRAN PERCENT AUTO 0.2 % (0.0-4.9); LYMPHOCYTES ABSOLUTE AUTO 0.73 10^3/uL (0.60-5.00); LYMPHOCYTES PERCENT AUTO 13.4 % (24-44); MEAN CORPUSCULAR HEMOGLOBIN 29.4 pg (27.0-32.0); MEAN CORPUSCULAR HGB CONC 32.9 g/dL (32.0-36.0); MEAN CORPUSCULAR VOLUME 89.6 fL (83.0-97.0); MONOCYTES ABSOLUTE AUTO 0.33 10^3/uL (0.00-1.50); MONOCYTES PERCENT AUTO 6.1 % (0-10); NEUTROPHILS ABSOLUTE AUTO 4.25 x10^3/uL (1.80-8.00); NEUTROPHILS PERCENT AUTO 78.3 % (41-71); PLATELET COUNT,PLT 132 10^3/uL (150-400); RED BLOOD CELL COUNT 3.09 x10^6/uL (4.00-5.50); WHITE BLOOD CELL COUNT,WBC 5.4 10^3/uL (4.0-11.0)
[2023-06-22 07:36] LABS: C-REACTIVE PROTEIN 1.93 mg/dL (<=0.30); CALCIUM 9.4 mg/dL (8.4-10.1); CREATININE 0.9 mg/dL (0.6-1.0); EST CRCL DRUG DOSING (CG) 52.31 mL/min; POTASSIUM,K 4.1 mEq/L (3.5-5.0)
[2023-06-22] MEDS: metFORMIN 500 MG Tab PO SCH ×2 (07:43→17:14)
[2023-06-22] MEDS: Albuterol/Ipratropium 3.0-0.5 MG/3 ML Neb Soln NEB SCH ×4 (07:43→19:39)
[2023-06-22] MEDS: Pregabalin 100 MG Cap PO SCH ×2 (07:43→19:42)
[2023-06-22] MEDS: Pantoprazole 40 MG Tab.CR PO SCH (07:43)
[2023-06-22] MEDS: Levothyroxine 50 MCG Tab PO SCH (07:44)
[2023-06-22] MEDS: Beta-Carotene (Vitamin A) w/Vitamin C & E plus Minerals Tab PO SCH (07:44)
[2023-06-22] MEDS: Furosemide 40 MG Tab PO SCH (07:44)
[2023-06-22] MEDS: Calcium Carbonate/Vitamin D3 1250 MG-5 MCG Tab PO SCH (07:44)
[2023-06-22] MEDS: Metoprolol Succinate 25 MG Tab.ER PO SCH (07:44)
[2023-06-22] MEDS: Aspirin 81 MG Tab.EC PO SCH (07:44)
[2023-06-22] MEDS: DABIGATRAN ETEXILATE MESYLATE 150 MG PO SCH ×2 (07:47→17:17)
[2023-06-22] MEDS: Levofloxacin/Dextrose 5%-Water 750 MG in Premix Bag 1 BAG IV SCH (15:25)
[2023-06-22] MEDS: MIRABEGRON 25 MG PO SCH (19:40)
[2023-06-22] MEDS: Sertraline 100 MG Tab PO SCH (19:40)
[2023-06-22] MEDS: Montelukast 10 MG Tab PO SCH (19:41)
[2023-06-22] MEDS: Digoxin 250 MCG Tab PO SCH (19:41)
[2023-06-22] MEDS: Rosuvastatin 10 MG Tab PO SCH (19:42)
[2023-06-22] MEDS: Loratadine 10 MG Tab PO SCH (19:42)
[2023-06-23 07:08] LABS: BASOPHILS ABSOLUTE AUTO 0.01 10^3/uL (0.00-0.50); BASOPHILS PERCENT AUTO 0.2 % (0-1); EOSINOPHILS ABSOLUTE AUTO 0.06 10^3/uL (0.00-1.50); EOSINOPHILS PERCENT AUTO 1.5 % (0-6); HEMATOCRIT 27.8 % (37.0-47.0); HEMOGLOBIN 9.1 g/dL (12.0-16.0); IMMATURE GRAN ABSOLUTE AUTO 0.01 10^3/uL (0.00-0.49); IMMATURE GRAN PERCENT AUTO 0.2 % (0.0-4.9); LYMPHOCYTES ABSOLUTE AUTO 0.72 10^3/uL (0.60-5.00); MEAN CORPUSCULAR HEMOGLOBIN 29.3 pg (27.0-32.0); MEAN CORPUSCULAR HGB CONC 32.7 g/dL (32.0-36.0); MEAN CORPUSCULAR VOLUME 89.4 fL (83.0-97.0); MONOCYTES PERCENT AUTO 7.5 % (0-10); NEUTROPHILS ABSOLUTE AUTO 2.91 x10^3/uL (1.80-8.00); NEUTROPHILS PERCENT AUTO 72.6 % (41-71); PLATELET COUNT,PLT 118 10^3/uL (150-400); RED BLOOD CELL COUNT 3.11 x10^6/uL (4.00-5.50)
[2023-06-23 07:20] LABS: C-REACTIVE PROTEIN 1.33 mg/dL (<=0.30); CALCIUM 9.6 mg/dL (8.4-10.1); CREATININE 0.9 mg/dL (0.6-1.0); EST CRCL DRUG DOSING (CG) 52.31 mL/min; POTASSIUM,K 4.3 mEq/L (3.5-5.0)
[2023-06-23] MEDS: Albuterol/Ipratropium 3.0-0.5 MG/3 ML Neb Soln NEB SCH ×4 (07:45→19:42)
[2023-06-23] MEDS: Pregabalin 100 MG Cap PO SCH ×2 (07:45→19:41)
[2023-06-23] MEDS: Furosemide 40 MG Tab PO SCH (07:45)
[2023-06-23] MEDS: Aspirin 81 MG Tab.EC PO SCH (07:45)
[2023-06-23] MEDS: Beta-Carotene (Vitamin A) w/Vitamin C & E plus Minerals Tab PO SCH (07:45)
[2023-06-23] MEDS: Pantoprazole 40 MG Tab.CR PO SCH (07:45)
[2023-06-23] MEDS: Calcium Carbonate/Vitamin D3 1250 MG-5 MCG Tab PO SCH (07:45)
[2023-06-23] MEDS: DABIGATRAN ETEXILATE MESYLATE 150 MG PO SCH ×2 (07:46→17:43)
[2023-06-23] MEDS: metFORMIN 500 MG Tab PO SCH ×2 (07:46→17:25)
[2023-06-23] MEDS: Metoprolol Succinate 25 MG Tab.ER PO SCH (07:50)
[2023-06-23] MEDS: Levothyroxine 50 MCG Tab PO SCH (07:50)
[2023-06-23] MEDS: Levofloxacin/Dextrose 5%-Water 750 MG in Premix Bag 1 BAG IV SCH (15:51)
[2023-06-23] MEDS: MIRABEGRON 25 MG PO SCH (19:40)
[2023-06-23] MEDS: Sertraline 100 MG Tab PO SCH (19:41)
[2023-06-23] MEDS: Loratadine 10 MG Tab PO SCH (19:41)
[2023-06-23] MEDS: Digoxin 250 MCG Tab PO SCH (19:41)
[2023-06-23] MEDS: Montelukast 10 MG Tab PO SCH (19:41)
[2023-06-23] MEDS: Rosuvastatin 10 MG Tab PO SCH (19:41)
[2023-06-24 07:30] LABS: BASOPHILS ABSOLUTE AUTO 0.02 10^3/uL (0.00-0.50); BASOPHILS PERCENT AUTO 0.4 % (0-1); EOSINOPHILS ABSOLUTE AUTO 0.09 10^3/uL (0.00-1.50); HEMATOCRIT 28.2 % (37.0-47.0); HEMOGLOBIN 9.3 g/dL (12.0-16.0); IMMATURE GRAN ABSOLUTE AUTO 0.01 10^3/uL (0.00-0.49); IMMATURE GRAN PERCENT AUTO 0.2 % (0.0-4.9); LYMPHOCYTES ABSOLUTE AUTO 0.81 10^3/uL (0.60-5.00); LYMPHOCYTES PERCENT AUTO 18.1 % (24-44); MEAN CORPUSCULAR HEMOGLOBIN 29.6 pg (27.0-32.0); MEAN CORPUSCULAR VOLUME 89.8 fL (83.0-97.0); MONOCYTES ABSOLUTE AUTO 0.32 10^3/uL (0.00-1.50); MONOCYTES PERCENT AUTO 7.2 % (0-10); NEUTROPHILS ABSOLUTE AUTO 3.22 x10^3/uL (1.80-8.00); NEUTROPHILS PERCENT AUTO 72.1 % (41-71); PLATELET COUNT,PLT 137 10^3/uL (150-400); RED BLOOD CELL COUNT 3.14 x10^6/uL (4.00-5.50); WHITE BLOOD CELL COUNT,WBC 4.5 10^3/uL (4.0-11.0)
[2023-06-24 07:40] LABS: C-REACTIVE PROTEIN 0.65 mg/dL (<=0.30); CALCIUM 9.8 mg/dL (8.4-10.1); EST CRCL DRUG DOSING (CG) 47.08 mL/min; POTASSIUM,K 4.2 mEq/L (3.5-5.0)
[2023-06-24] MEDS: Albuterol/Ipratropium 3.0-0.5 MG/3 ML Neb Soln NEB SCH ×2 (08:05→12:10)
[2023-06-24] MEDS: Aspirin 81 MG Tab.EC PO SCH (08:05)
[2023-06-24] MEDS: Furosemide 40 MG Tab PO SCH (08:06)
[2023-06-24] MEDS: Levothyroxine 50 MCG Tab PO SCH (08:06)
[2023-06-24] MEDS: Pregabalin 100 MG Cap PO SCH (08:06)
[2023-06-24] MEDS: Pantoprazole 40 MG Tab.CR PO SCH (08:06)
[2023-06-24] MEDS: Metoprolol Succinate 25 MG Tab.ER PO SCH (08:06)
[2023-06-24] MEDS: metFORMIN 500 MG Tab PO SCH (08:06)
[2023-06-24] MEDS: Beta-Carotene (Vitamin A) w/Vitamin C & E plus Minerals Tab PO SCH (08:06)
[2023-06-24] MEDS: Calcium Carbonate/Vitamin D3 1250 MG-5 MCG Tab PO SCH (08:06)
[2023-06-24 08:10] VITALS: PULSE 66
[2023-06-24] MEDS: DABIGATRAN ETEXILATE MESYLATE 150 MG PO SCH (08:31)
[2023-06-24] MEDS ORDERED: Levofloxacin 500 MG Tab PO ONE (13:18)
[2023-06-24 13:20] VITALS: BP 115/46
== END 2023-06-24 14:15 | DRG 689 ==
LOC: CC.FCMC 13:21 → CC.MS 13:21 → UNDOADMIN 14:34 → CC.MS 14:34
PROVIDERS: ADMIT Physician Assistant Medical; ATTEND Nurse Practitioner Family
DX: N39.0 Urinary tract infection, site not specified (principal); J18.9 Pneumonia, unspecified organism; J90 Pleural effusion, not elsewhere classified; R62.7 Adult failure to thrive; R19.7 Diarrhea, unspecified; M54.2 Cervicalgia; R29.6 Repeated falls; Z20.822 Contact with and (suspected) exposure to COVID-19; I48.0 Paroxysmal atrial fibrillation; Z88.8 Allergy status to other drugs, medicaments and biological substances; Z91.040 Latex allergy status; E11.9 Type 2 diabetes mellitus without complications; J44.9 Chronic obstructive pulmonary disease, unspecified; I11.0 Hypertensive heart disease with heart failure; I50.9 Heart failure, unspecified; E03.9 Hypothyroidism, unspecified; Z79.82 Long term (current) use of aspirin; Z79.84 Long term (current) use of oral hypoglycemic drugs; Z79.899 Other long term (current) drug therapy; Z95.0 Presence of cardiac pacemaker; Z95.5 Presence of coronary angioplasty implant and graft
CPT/HCPCS: 0240U; 36415; 71046; 72125; 80048; 80053; 81001; 82550; 83605; 83735; 85025; 86140; 87040; 87086; 87088; 87186; 94640; A9270-GY; J1956; J2405; J7620-GY

== ENCOUNTER 2023-07-31 12:00 | Inpatient (IN) | payer MEDICARE ==
[2023-07-31] MEDS ORDERED: Acetaminophen 650 MG Supp RECTAL PRN (12:45)
[2023-07-31] MEDS ORDERED: Sodium Chloride 0.9% 10 ML Syringe FLUSH PRN (12:45)
[2023-07-31] MEDS ORDERED: Ondansetron 4 MG/2 ML SDV IV PRN (12:45)
[2023-07-31] MEDS ORDERED: Docusate Sodium 100 MG Cap PO PRN (12:45)
[2023-07-31] MEDS ORDERED: Ondansetron 4 MG Tab.DIS PO PRN (12:45)
[2023-07-31] MEDS ORDERED: Polyethylene Glycol 3350 Powder 17 GM Packet PO PRN (12:45)
[2023-07-31 12:49] LABS: BASOPHILS ABSOLUTE AUTO 0.02 10^3/uL (0.00-0.50); BASOPHILS PERCENT AUTO 0.5 % (0-1); EOSINOPHILS ABSOLUTE AUTO 0.13 10^3/uL (0.00-1.50); EOSINOPHILS PERCENT AUTO 3.3 % (0-6); HEMATOCRIT 25.4 % (37.0-47.0); HEMOGLOBIN 8.1 g/dL (12.0-16.0); IMMATURE GRAN ABSOLUTE AUTO 0.02 10^3/uL (0.00-0.49); IMMATURE GRAN PERCENT AUTO 0.5 % (0.0-4.9); LYMPHOCYTES ABSOLUTE AUTO 0.65 10^3/uL (0.60-5.00); LYMPHOCYTES PERCENT AUTO 16.7 % (24-44); MEAN CORPUSCULAR HGB CONC 31.9 g/dL (32.0-36.0); MEAN CORPUSCULAR VOLUME 94.1 fL (83.0-97.0); MONOCYTES ABSOLUTE AUTO 0.22 10^3/uL (0.00-1.50); MONOCYTES PERCENT AUTO 5.7 % (0-10); NEUTROPHILS ABSOLUTE AUTO 2.85 x10^3/uL (1.80-8.00); NEUTROPHILS PERCENT AUTO 73.3 % (41-71); PLATELET COUNT,PLT 186 10^3/uL (150-400); WHITE BLOOD CELL COUNT,WBC 3.9 10^3/uL (4.0-11.0)
[2023-07-31 13:11] LABS: ALANINE AMINOTRANSFERASE,ALT 139 U/L (12-78); ALBUMIN 2.2 g/dL (3.4-5.0); ALKALINE PHOSPHATASE 430 U/L (46-116); ASPARTATE AMNIOTRANSFERASE,AST 224 U/L (15-37); BILIRUBIN TOTAL 0.3 mg/dL (0.0-1.0); BLOOD UREA NITROGEN,BUN 22 mg/dL (7-18); C-REACTIVE PROTEIN 2.38 mg/dL (<=0.30); CALCIUM 9.3 mg/dL (8.4-10.1); CARBON DIOXIDE,CO2 29 mmol/L (21-32); CHLORIDE,CL 104 mEq/L (98-106); CREATININE 0.9 mg/dL (0.6-1.0); GLUCOSE RANDOM 177 mg/dL (75-99); POTASSIUM,K 4.6 mEq/L (3.5-5.0); PROTEIN TOTAL,TP 5.7 g/dL (6.4-8.2); SODIUM,NA 138 mEq/L (136-145)
[2023-07-31 13:14] LABS: ESTIMATED GFR 68 mL/min (>=60)
[2023-07-31 15:23] LABS: INFLUENZA A NAA NEGATIVE (NEGATIVE); INFLUENZA B NAA NEGATIVE (NEGATIVE)
[2023-07-31 15:30] LABS: CORONAVIRUS COVID-19 NAA POSITIVE (NEGATIVE)
[2023-07-31] MEDS ORDERED: Albuterol/Ipratropium 3.0-0.5 MG/3 ML Neb Soln NEB PRN (16:23)
[2023-07-31] MEDS ORDERED: metroNIDAZOLE/Normal Saline 100 ML ONE (16:56)
[2023-07-31] MEDS: metFORMIN 500 MG Tab PO SCH (17:58)
[2023-07-31] MEDS: metroNIDAZOLE/Normal Saline 500 MG in Premix Bag 1 BAG IV SCH (17:58)
[2023-07-31] MEDS ORDERED: Furosemide 100 MG/10 ML SDV ONE (18:00)
[2023-07-31] MEDS ORDERED: Furosemide 40 MG/4 ML VIAL ONE (18:01)
[2023-07-31] MEDS ORDERED: Furosemide 40 MG/4 ML VIAL IVPUSH ONE (18:10)
[2023-07-31] MEDS ORDERED: Montelukast 10 MG Tab PO SCH (20:00)
[2023-07-31] MEDS ORDERED: Non-Formulary Medication 1 Each (Mirabegron [Myrbetriq] 25 MG Tab.Er) PO SCH (20:00)
[2023-07-31] MEDS: cefTRIAXone 1 GM Vial IVPUSH SCH (20:48)
[2023-07-31] MEDS: Mirtazapine 15 MG Tab PO SCH (20:54)
[2023-07-31] MEDS: Loratadine 10 MG Tab PO SCH (20:54)
[2023-07-31] MEDS: Calcium Carbonate 500 MG Tab.Chew PO SCH (20:54)
[2023-07-31] MEDS: Pregabalin 50 MG Cap PO SCH (20:58)
[2023-07-31 20:59] LABS: APPEARANCE,URINE CLEAR (CLEAR); BILIRUBIN,URINE NEGATIVE (NEGATIVE); COLOR,URINE YELLOW (YELLOW); GLUCOSE,URINE NEGATIVE (NEGATIVE); KETONES,URINE NEGATIVE (NEGATIVE); LEUKOCYTE ESTERASE,URINE MODERATE (NEGATIVE); NITRITE,URINE NEGATIVE (NEGATIVE); OCCULT BLOOD,URINE TRACE-INTACT (NEGATIVE); PH,URINE 5.5 (4.5-8.0); PROTEIN,URINE NEGATIVE (NEGATIVE); UROBILINOGEN,URINE 0.2 EU/dL (0.2-1.0)
[2023-07-31 21:13] LABS: RBC,URINE NOT SEEN /HPF (0-5)
[2023-07-31 21:14] LABS: BACTERIA,URINE MODERATE /HPF (NOT SEEN); WBC,URINE 50-75 /HPF (0-5)
[2023-08-01] MEDS: metroNIDAZOLE/Normal Saline 500 MG in Premix Bag 1 BAG IV SCH ×3 (00:01→15:32)
[2023-08-01] MEDS: Acetaminophen 325 MG Tab PO PRN ×2 (04:02→20:43)
[2023-08-01] MEDS: Levothyroxine 50 MCG Tab PO SCH (06:44)
[2023-08-01] MEDS: Pantoprazole 40 MG Tab.CR PO SCH (06:44)
[2023-08-01] MEDS: Aspirin 81 MG Tab.EC PO SCH (07:40)
[2023-08-01] MEDS: Metoprolol Succinate 25 MG Tab.ER PO SCH (07:40)
[2023-08-01] MEDS: Pregabalin 50 MG Cap PO SCH ×2 (07:40→19:35)
[2023-08-01] MEDS: metFORMIN 500 MG Tab PO SCH ×2 (07:40→17:51)
[2023-08-01] MEDS: Folic Acid 1 MG Tab PO SCH (07:40)
[2023-08-01 07:50] LABS: BASOPHILS ABSOLUTE AUTO 0.02 10^3/uL (0.00-0.50); BASOPHILS PERCENT AUTO 0.5 % (0-1); EOSINOPHILS ABSOLUTE AUTO 0.11 10^3/uL (0.00-1.50); EOSINOPHILS PERCENT AUTO 2.7 % (0-6); HEMATOCRIT 22.6 % (37.0-47.0); IMMATURE GRAN ABSOLUTE AUTO 0.01 10^3/uL (0.00-0.49); IMMATURE GRAN PERCENT AUTO 0.2 % (0.0-4.9); LYMPHOCYTES ABSOLUTE AUTO 0.71 10^3/uL (0.60-5.00); LYMPHOCYTES PERCENT AUTO 17.6 % (24-44); MEAN CORPUSCULAR HEMOGLOBIN 30.2 pg (27.0-32.0); MEAN CORPUSCULAR HGB CONC 32.3 g/dL (32.0-36.0); MEAN CORPUSCULAR VOLUME 93.4 fL (83.0-97.0); MONOCYTES ABSOLUTE AUTO 0.25 10^3/uL (0.00-1.50); MONOCYTES PERCENT AUTO 6.2 % (0-10); NEUTROPHILS ABSOLUTE AUTO 2.94 x10^3/uL (1.80-8.00); NEUTROPHILS PERCENT AUTO 72.8 % (41-71); PLATELET COUNT,PLT 173 10^3/uL (150-400); RED BLOOD CELL COUNT 2.42 x10^6/uL (4.00-5.50)
[2023-08-01 07:55] LABS: HEMOGLOBIN 7.3 g/dL (12.0-16.0)
[2023-08-01 08:05] LABS: ALBUMIN 1.9 g/dL (3.4-5.0); BILIRUBIN TOTAL 0.3 mg/dL (0.0-1.0); C-REACTIVE PROTEIN 1.74 mg/dL (<=0.30); CALCIUM 8.8 mg/dL (8.4-10.1); CREATININE 0.9 mg/dL (0.6-1.0); EST CRCL DRUG DOSING (CG) 52.89 mL/min; POTASSIUM,K 4.1 mEq/L (3.5-5.0); PROTEIN TOTAL,TP 5.1 g/dL (6.4-8.2)
[2023-08-01] MEDS: DABIGATRAN ETEXILATE MESYLATE 150 MG PO SCH ×3 (10:54→19:36)
[2023-08-01] MEDS ORDERED: Furosemide 40 MG/4 ML VIAL IVPUSH ONE (16:26)
[2023-08-01] MEDS: Loratadine 10 MG Tab PO SCH (19:34)
[2023-08-01] MEDS: Mirtazapine 15 MG Tab PO SCH (19:35)
[2023-08-01] MEDS: cefTRIAXone 1 GM Vial IVPUSH SCH (19:37)
[2023-08-01] MEDS: Calcium Carbonate 500 MG Tab.Chew PO SCH (19:37)
[2023-08-02] MEDS: metroNIDAZOLE/Normal Saline 500 MG in Premix Bag 1 BAG IV SCH ×4 (00:50→23:41)
[2023-08-02] MEDS: Levothyroxine 50 MCG Tab PO SCH (07:42)
[2023-08-02] MEDS: Metoprolol Succinate 25 MG Tab.ER PO SCH (07:42)
[2023-08-02] MEDS: Aspirin 81 MG Tab.EC PO SCH (07:42)
[2023-08-02] MEDS: Pantoprazole 40 MG Tab.CR PO SCH (07:42)
[2023-08-02] MEDS: Folic Acid 1 MG Tab PO SCH (07:43)
[2023-08-02] MEDS: metFORMIN 500 MG Tab PO SCH ×2 (07:43→18:15)
[2023-08-02] MEDS: Pregabalin 50 MG Cap PO SCH (07:44)
[2023-08-02 07:52] LABS: BASOPHILS ABSOLUTE AUTO 0.01 10^3/uL (0.00-0.50); BASOPHILS PERCENT AUTO 0.2 % (0-1); EOSINOPHILS ABSOLUTE AUTO 0.03 10^3/uL (0.00-1.50); EOSINOPHILS PERCENT AUTO 0.7 % (0-6); HEMATOCRIT 24.5 % (37.0-47.0); HEMOGLOBIN 7.9 g/dL (12.0-16.0); IMMATURE GRAN ABSOLUTE AUTO 0.02 10^3/uL (0.00-0.49); IMMATURE GRAN PERCENT AUTO 0.4 % (0.0-4.9); LYMPHOCYTES ABSOLUTE AUTO 0.67 10^3/uL (0.60-5.00); LYMPHOCYTES PERCENT AUTO 14.8 % (24-44); MEAN CORPUSCULAR HGB CONC 32.2 g/dL (32.0-36.0); MEAN CORPUSCULAR VOLUME 93.2 fL (83.0-97.0); MONOCYTES ABSOLUTE AUTO 0.33 10^3/uL (0.00-1.50); MONOCYTES PERCENT AUTO 7.3 % (0-10); NEUTROPHILS ABSOLUTE AUTO 3.46 x10^3/uL (1.80-8.00); NEUTROPHILS PERCENT AUTO 76.6 % (41-71); PLATELET COUNT,PLT 206 10^3/uL (150-400); RED BLOOD CELL COUNT 2.63 x10^6/uL (4.00-5.50); WHITE BLOOD CELL COUNT,WBC 4.5 10^3/uL (4.0-11.0)
[2023-08-02 08:13] LABS: ALBUMIN 2.1 g/dL (3.4-5.0); BILIRUBIN TOTAL 0.4 mg/dL (0.0-1.0); C-REACTIVE PROTEIN 4.79 mg/dL (<=0.30); CALCIUM 9.1 mg/dL (8.4-10.1); EST CRCL DRUG DOSING (CG) 47.6 mL/min; POTASSIUM,K 4.9 mEq/L (3.5-5.0); PROTEIN TOTAL,TP 5.7 g/dL (6.4-8.2)
[2023-08-02] MEDS: DABIGATRAN ETEXILATE MESYLATE 150 MG PO SCH ×2 (11:19→20:34)
[2023-08-02] MEDS ORDERED: VANCOmycin 1 GM/200 ML 1 GM in Premix Bag 1 BAG IV ONE (14:00)
[2023-08-02] MEDS: cefTRIAXone 1 GM Vial IVPUSH SCH (20:24)
[2023-08-02] MEDS: Mirtazapine 15 MG Tab PO SCH (20:29)
[2023-08-02] MEDS: Pregabalin 100 MG Cap PO SCH (20:29)
[2023-08-02] MEDS: Loratadine 10 MG Tab PO SCH (20:29)
[2023-08-02] MEDS: Calcium Carbonate 500 MG Tab.Chew PO SCH (20:29)
[2023-08-02] MEDS: Acetaminophen 325 MG Tab PO PRN (23:46)
[2023-08-03] MEDS: Levothyroxine 50 MCG Tab PO SCH (06:29)
[2023-08-03] MEDS: Pantoprazole 40 MG Tab.CR PO SCH (06:29)
[2023-08-03 08:04] LABS: ALBUMIN 2.1 g/dL (3.4-5.0); BILIRUBIN TOTAL 0.4 mg/dL (0.0-1.0); C-REACTIVE PROTEIN 5.19 mg/dL (<=0.30); CALCIUM 9.2 mg/dL (8.4-10.1); EST CRCL DRUG DOSING (CG) 47.6 mL/min; PROTEIN TOTAL,TP 5.7 g/dL (6.4-8.2)
[2023-08-03 08:07] LABS: BASOPHILS ABSOLUTE AUTO 0.03 10^3/uL (0.00-0.50); BASOPHILS PERCENT AUTO 0.6 % (0-1); EOSINOPHILS ABSOLUTE AUTO 0.12 10^3/uL (0.00-1.50); EOSINOPHILS PERCENT AUTO 2.4 % (0-6); HEMOGLOBIN 8.1 g/dL (12.0-16.0); IMMATURE GRAN ABSOLUTE AUTO 0.02 10^3/uL (0.00-0.49); IMMATURE GRAN PERCENT AUTO 0.4 % (0.0-4.9); LYMPHOCYTES ABSOLUTE AUTO 0.75 10^3/uL (0.60-5.00); MEAN CORPUSCULAR HEMOGLOBIN 30.3 pg (27.0-32.0); MEAN CORPUSCULAR HGB CONC 32.4 g/dL (32.0-36.0); MEAN CORPUSCULAR VOLUME 93.6 fL (83.0-97.0); MONOCYTES ABSOLUTE AUTO 0.32 10^3/uL (0.00-1.50); MONOCYTES PERCENT AUTO 6.4 % (0-10); NEUTROPHILS ABSOLUTE AUTO 3.77 x10^3/uL (1.80-8.00); NEUTROPHILS PERCENT AUTO 75.2 % (41-71); PLATELET COUNT,PLT 198 10^3/uL (150-400); RED BLOOD CELL COUNT 2.67 x10^6/uL (4.00-5.50)
[2023-08-03] MEDS: DABIGATRAN ETEXILATE MESYLATE 150 MG PO SCH (08:21)
[2023-08-03] MEDS: Aspirin 81 MG Tab.EC PO SCH (08:27)
[2023-08-03] MEDS: Furosemide 40 MG/4 ML VIAL IVPUSH SCH (08:27)
[2023-08-03] MEDS: metFORMIN 500 MG Tab PO SCH ×2 (08:27→17:17)
[2023-08-03] MEDS: Folic Acid 1 MG Tab PO SCH (08:27)
[2023-08-03] MEDS: Pregabalin 100 MG Cap PO SCH ×2 (08:28→21:25)
[2023-08-03] MEDS: Metoprolol Succinate 25 MG Tab.ER PO SCH (08:28)
[2023-08-03] MEDS: metroNIDAZOLE/Normal Saline 500 MG in Premix Bag 1 BAG IV SCH ×2 (08:29→17:16)
[2023-08-03] MEDS: Acetaminophen 325 MG Tab PO PRN (08:30)
[2023-08-03] MEDS ORDERED: Iopamidol 755 Mg/ML 100 ML Bottle IVPUSH ONE (10:10)
[2023-08-03] MEDS: VANCOmycin 1 GM/200 ML 1 GM in Premix Bag 1 BAG IV SCH (11:54)
[2023-08-03] MEDS: cefTRIAXone 1 GM Vial IVPUSH SCH (21:16)
[2023-08-03] MEDS: Apixaban 5 MG Tab PO SCH (21:24)
[2023-08-03] MEDS: Calcium Carbonate 500 MG Tab.Chew PO SCH (21:25)
[2023-08-03] MEDS: Loratadine 10 MG Tab PO SCH (21:25)
[2023-08-03] MEDS: Mirtazapine 15 MG Tab PO SCH (21:25)
[2023-08-04] MEDS: metroNIDAZOLE/Normal Saline 500 MG in Premix Bag 1 BAG IV SCH ×3 (00:09→16:43)
[2023-08-04] MEDS: Pantoprazole 40 MG Tab.CR PO SCH (06:51)
[2023-08-04] MEDS: Levothyroxine 50 MCG Tab PO SCH (06:51)
[2023-08-04] MEDS: Apixaban 5 MG Tab PO SCH (07:42)
[2023-08-04] MEDS: Furosemide 40 MG/4 ML VIAL IVPUSH SCH (07:42)
[2023-08-04] MEDS: metFORMIN 500 MG Tab PO SCH ×2 (07:42→16:43)
[2023-08-04] MEDS: Pregabalin 100 MG Cap PO SCH ×2 (07:42→19:10)
[2023-08-04] MEDS: Folic Acid 1 MG Tab PO SCH (07:42)
[2023-08-04] MEDS: Aspirin 81 MG Tab.EC PO SCH (07:42)
[2023-08-04] MEDS: Metoprolol Succinate 25 MG Tab.ER PO SCH (07:42)
[2023-08-04 10:05] LABS: ALBUMIN 1.9 g/dL (3.4-5.0); BILIRUBIN TOTAL 0.3 mg/dL (0.0-1.0); EST CRCL DRUG DOSING (CG) 47.6 mL/min; MAGNESIUM 1.7 mg/dL (1.8-2.4); POTASSIUM,K 3.5 mEq/L (3.5-5.0); PROTEIN TOTAL,TP 5.3 g/dL (6.4-8.2)
[2023-08-04] MEDS: VANCOmycin 1 GM/200 ML 1 GM in Premix Bag 1 BAG IV SCH (13:11)
[2023-08-04 14:06] LABS: BASOPHILS ABSOLUTE AUTO 0.04 10^3/uL (0.00-0.50); BASOPHILS PERCENT AUTO 0.9 % (0-1); EOSINOPHILS ABSOLUTE AUTO 0.07 10^3/uL (0.00-1.50); EOSINOPHILS PERCENT AUTO 1.6 % (0-6); HEMATOCRIT 22.6 % (37.0-47.0); IMMATURE GRAN ABSOLUTE AUTO 0.02 10^3/uL (0.00-0.49); IMMATURE GRAN PERCENT AUTO 0.5 % (0.0-4.9); LYMPHOCYTES ABSOLUTE AUTO 0.72 10^3/uL (0.60-5.00); LYMPHOCYTES PERCENT AUTO 16.3 % (24-44); MEAN CORPUSCULAR HEMOGLOBIN 29.5 pg (27.0-32.0); MEAN CORPUSCULAR HGB CONC 31.4 g/dL (32.0-36.0); MEAN CORPUSCULAR VOLUME 93.8 fL (83.0-97.0); MONOCYTES ABSOLUTE AUTO 0.31 10^3/uL (0.00-1.50); NEUTROPHILS ABSOLUTE AUTO 3.25 x10^3/uL (1.80-8.00); NEUTROPHILS PERCENT AUTO 73.7 % (41-71); PLATELET COUNT,PLT 197 10^3/uL (150-400); RED BLOOD CELL COUNT 2.41 x10^6/uL (4.00-5.50); WHITE BLOOD CELL COUNT,WBC 4.4 10^3/uL (4.0-11.0)
[2023-08-04 14:12] LABS: HEMOGLOBIN 7.1 g/dL (12.0-16.0)
[2023-08-04] MEDS: cefTRIAXone 1 GM Vial IVPUSH SCH (19:10)
[2023-08-04] MEDS: Calcium Carbonate 500 MG Tab.Chew PO SCH (19:11)
[2023-08-04] MEDS: Mirtazapine 15 MG Tab PO SCH (19:11)
[2023-08-04] MEDS: Loratadine 10 MG Tab PO SCH (19:11)
[2023-08-05] MEDS: metroNIDAZOLE/Normal Saline 500 MG in Premix Bag 1 BAG IV SCH ×2 (00:46→08:26)
[2023-08-05] MEDS: Levothyroxine 50 MCG Tab PO SCH (06:17)
[2023-08-05] MEDS: Pantoprazole 40 MG Tab.CR PO SCH (06:17)
[2023-08-05 07:28] LABS: BASOPHILS ABSOLUTE AUTO 0.06 10^3/uL (0.00-0.50); BASOPHILS PERCENT AUTO 1.6 % (0-1); EOSINOPHILS ABSOLUTE AUTO 0.15 10^3/uL (0.00-1.50); EOSINOPHILS PERCENT AUTO 3.9 % (0-6); HEMATOCRIT 22.7 % (37.0-47.0); IMMATURE GRAN ABSOLUTE AUTO 0.03 10^3/uL (0.00-0.49); IMMATURE GRAN PERCENT AUTO 0.8 % (0.0-4.9); LYMPHOCYTES ABSOLUTE AUTO 0.74 10^3/uL (0.60-5.00); LYMPHOCYTES PERCENT AUTO 19.2 % (24-44); MEAN CORPUSCULAR HEMOGLOBIN 29.8 pg (27.0-32.0); MEAN CORPUSCULAR HGB CONC 32.2 g/dL (32.0-36.0); MEAN CORPUSCULAR VOLUME 92.7 fL (83.0-97.0); MONOCYTES ABSOLUTE AUTO 0.33 10^3/uL (0.00-1.50); MONOCYTES PERCENT AUTO 8.5 % (0-10); NEUTROPHILS ABSOLUTE AUTO 2.55 x10^3/uL (1.80-8.00); PLATELET COUNT,PLT 199 10^3/uL (150-400); RED BLOOD CELL COUNT 2.45 x10^6/uL (4.00-5.50); WHITE BLOOD CELL COUNT,WBC 3.9 10^3/uL (4.0-11.0)
[2023-08-05 07:33] LABS: HEMOGLOBIN 7.3 g/dL (12.0-16.0)
[2023-08-05 07:46] LABS: ALBUMIN 1.8 g/dL (3.4-5.0); BILIRUBIN TOTAL 0.2 mg/dL (0.0-1.0); CREATININE 0.9 mg/dL (0.6-1.0); EST CRCL DRUG DOSING (CG) 52.89 mL/min; POTASSIUM,K 3.6 mEq/L (3.5-5.0); PROTEIN TOTAL,TP 5.2 g/dL (6.4-8.2)
[2023-08-05] MEDS: Metoprolol Succinate 25 MG Tab.ER PO SCH (08:27)
[2023-08-05] MEDS: Ferrous Sulfate 324 MG Tab.EC PO SCH ×3 (08:27→17:41)
[2023-08-05] MEDS: Folic Acid 1 MG Tab PO SCH (08:27)
[2023-08-05] MEDS: Aspirin 81 MG Tab.EC PO SCH (08:27)
[2023-08-05] MEDS: metFORMIN 500 MG Tab PO SCH ×2 (08:28→17:41)
[2023-08-05] MEDS: Pregabalin 100 MG Cap PO SCH ×2 (08:28→19:11)
[2023-08-05] MEDS: Furosemide 40 MG Tab PO SCH (08:28)
[2023-08-05] MEDS ORDERED: Magnesium Sulfate/Water 2 GM in Premix Bag 1 BAG IV ONE (10:18)
[2023-08-05] MEDS: Lactobacillus Rhamnosus GG (Probiotic) Cap PO SCH (10:34)
[2023-08-05] MEDS: metroNIDAZOLE 500 MG Tab PO SCH ×2 (11:15→19:11)
[2023-08-05] MEDS: Albuterol/Ipratropium 3.0-0.5 MG/3 ML Neb Soln NEB SCH ×4 (11:15→19:12)
[2023-08-05] MEDS: VANCOmycin 1 GM/200 ML 1 GM in Premix Bag 1 BAG IV SCH (11:16)
[2023-08-05] MEDS: Mirtazapine 15 MG Tab PO SCH (19:11)
[2023-08-05] MEDS: Loratadine 10 MG Tab PO SCH (19:12)
[2023-08-05] MEDS: cefTRIAXone 1 GM Vial IVPUSH SCH (19:12)
[2023-08-05] MEDS: Calcium Carbonate 500 MG Tab.Chew PO SCH (19:12)
[2023-08-05] MEDS: Acetaminophen 325 MG Tab PO PRN (23:45)
[2023-08-06] MEDS: metroNIDAZOLE 500 MG Tab PO SCH ×2 (05:04→12:07)
[2023-08-06] MEDS: Pantoprazole 40 MG Tab.CR PO SCH (06:28)
[2023-08-06] MEDS: Levothyroxine 50 MCG Tab PO SCH (06:28)
[2023-08-06 07:32] LABS: BASOPHILS ABSOLUTE AUTO 0.04 10^3/uL (0.00-0.50); BASOPHILS PERCENT AUTO 1.2 % (0-1); EOSINOPHILS ABSOLUTE AUTO 0.15 10^3/uL (0.00-1.50); EOSINOPHILS PERCENT AUTO 4.7 % (0-6); HEMATOCRIT 22.2 % (37.0-47.0); IMMATURE GRAN ABSOLUTE AUTO 0.02 10^3/uL (0.00-0.49); IMMATURE GRAN PERCENT AUTO 0.6 % (0.0-4.9); LYMPHOCYTES ABSOLUTE AUTO 0.79 10^3/uL (0.60-5.00); LYMPHOCYTES PERCENT AUTO 24.6 % (24-44); MEAN CORPUSCULAR HEMOGLOBIN 29.8 pg (27.0-32.0); MEAN CORPUSCULAR VOLUME 93.3 fL (83.0-97.0); MONOCYTES ABSOLUTE AUTO 0.24 10^3/uL (0.00-1.50); MONOCYTES PERCENT AUTO 7.5 % (0-10); NEUTROPHILS ABSOLUTE AUTO 1.97 x10^3/uL (1.80-8.00); NEUTROPHILS PERCENT AUTO 61.4 % (41-71); PLATELET COUNT,PLT 175 10^3/uL (150-400); RED BLOOD CELL COUNT 2.38 x10^6/uL (4.00-5.50); WHITE BLOOD CELL COUNT,WBC 3.2 10^3/uL (4.0-11.0)
[2023-08-06 07:48] LABS: HEMOGLOBIN 7.1 g/dL (12.0-16.0)
[2023-08-06 08:06] LABS: ALBUMIN 1.8 g/dL (3.4-5.0); BILIRUBIN TOTAL 0.2 mg/dL (0.0-1.0); CALCIUM 9.2 mg/dL (8.4-10.1); CREATININE 0.9 mg/dL (0.6-1.0); EST CRCL DRUG DOSING (CG) 52.89 mL/min; POTASSIUM,K 3.7 mEq/L (3.5-5.0); PROTEIN TOTAL,TP 5.3 g/dL (6.4-8.2)
[2023-08-06] MEDS: Aspirin 325 MG Tab.EC PO SCH (08:16)
[2023-08-06] MEDS: Folic Acid 1 MG Tab PO SCH (08:16)
[2023-08-06] MEDS: Pregabalin 100 MG Cap PO SCH ×2 (08:16→19:48)
[2023-08-06] MEDS: Furosemide 40 MG Tab PO SCH (08:17)
[2023-08-06] MEDS: Lactobacillus Rhamnosus GG (Probiotic) Cap PO SCH (08:17)
[2023-08-06] MEDS: Ferrous Sulfate 324 MG Tab.EC PO SCH ×3 (08:17→17:15)
[2023-08-06] MEDS: metFORMIN 500 MG Tab PO SCH ×2 (08:18→17:15)
[2023-08-06] MEDS: Albuterol/Ipratropium 3.0-0.5 MG/3 ML Neb Soln NEB SCH ×4 (08:18→19:48)
[2023-08-06] MEDS: Metoprolol Succinate 25 MG Tab.ER PO SCH (08:18)
[2023-08-06] MEDS ORDERED: Magnesium Sulfate/Water 2 GM in Premix Bag 1 BAG IV ONE (09:27)
[2023-08-06] MEDS: VANCOmycin 1 GM/200 ML 1 GM in Premix Bag 1 BAG IV SCH (13:13)
[2023-08-06] MEDS: Calcium Carbonate 500 MG Tab.Chew PO SCH (19:48)
[2023-08-06] MEDS: Loratadine 10 MG Tab PO SCH (19:48)
[2023-08-06] MEDS: Mirtazapine 15 MG Tab PO SCH (19:48)
[2023-08-06] MEDS: cefTRIAXone 1 GM Vial IVPUSH SCH (19:49)
[2023-08-07] MEDS: Lactobacillus Rhamnosus GG (Probiotic) Cap PO SCH (07:57)
[2023-08-07] MEDS: Ferrous Sulfate 324 MG Tab.EC PO SCH ×2 (07:57→11:58)
[2023-08-07] MEDS: Pantoprazole 40 MG Tab.CR PO SCH (07:57)
[2023-08-07] MEDS: Metoprolol Succinate 25 MG Tab.ER PO SCH (07:57)
[2023-08-07] MEDS: Folic Acid 1 MG Tab PO SCH (07:57)
[2023-08-07] MEDS: Levothyroxine 50 MCG Tab PO SCH (07:58)
[2023-08-07] MEDS: Pregabalin 100 MG Cap PO SCH (07:58)
[2023-08-07] MEDS: Furosemide 40 MG Tab PO SCH (07:58)
[2023-08-07] MEDS: Aspirin 325 MG Tab.EC PO SCH (07:58)
[2023-08-07] MEDS: metFORMIN 500 MG Tab PO SCH (07:58)
[2023-08-07] MEDS: Albuterol/Ipratropium 3.0-0.5 MG/3 ML Neb Soln NEB SCH ×2 (07:58→11:58)
[2023-08-07 08:06] LABS: ALBUMIN 1.9 g/dL (3.4-5.0); BILIRUBIN TOTAL 0.2 mg/dL (0.0-1.0); CALCIUM 9.2 mg/dL (8.4-10.1); CREATININE 0.8 mg/dL (0.6-1.0); EST CRCL DRUG DOSING (CG) 59.51 mL/min; PROTEIN TOTAL,TP 5.3 g/dL (6.4-8.2)
[2023-08-07 08:17] LABS: BASOPHILS ABSOLUTE AUTO 0.06 10^3/uL (0.00-0.50); BASOPHILS PERCENT AUTO 1.3 % (0-1); EOSINOPHILS ABSOLUTE AUTO 0.14 10^3/uL (0.00-1.50); EOSINOPHILS PERCENT AUTO 3.1 % (0-6); HEMATOCRIT 23.4 % (37.0-47.0); IMMATURE GRAN ABSOLUTE AUTO 0.03 10^3/uL (0.00-0.49); IMMATURE GRAN PERCENT AUTO 0.7 % (0.0-4.9); LYMPHOCYTES ABSOLUTE AUTO 0.68 10^3/uL (0.60-5.00); MEAN CORPUSCULAR HEMOGLOBIN 29.2 pg (27.0-32.0); MEAN CORPUSCULAR HGB CONC 31.6 g/dL (32.0-36.0); MEAN CORPUSCULAR VOLUME 92.5 fL (83.0-97.0); MONOCYTES ABSOLUTE AUTO 0.28 10^3/uL (0.00-1.50); MONOCYTES PERCENT AUTO 6.2 % (0-10); NEUTROPHILS ABSOLUTE AUTO 3.33 x10^3/uL (1.80-8.00); NEUTROPHILS PERCENT AUTO 73.7 % (41-71); PLATELET COUNT,PLT 212 10^3/uL (150-400); RED BLOOD CELL COUNT 2.53 x10^6/uL (4.00-5.50); WHITE BLOOD CELL COUNT,WBC 4.5 10^3/uL (4.0-11.0)
[2023-08-07 08:24] LABS: HEMOGLOBIN 7.4 g/dL (12.0-16.0)
[2023-08-07] MEDS: VANCOmycin 1 GM/200 ML 1 GM in Premix Bag 1 BAG IV SCH (13:33)
[2023-08-07 14:34] VITALS: BP 127/56; PULSE 89
== END 2023-08-07 15:28 | disposition home or self-care (01) | DRG 592 ==
LOC: CC.MS 12:00 → UNDOADMIN 12:00 → CC.MS 12:45 → UNDODISIN 08-04 15:30 → CC.MS 08-05 12:43
PROVIDERS: ADMIT Nurse Practitioner Family; ATTEND Nurse Practitioner Family
PROC: 8E0ZXY6 Isolation (ICD-10-PCS; principal; 2023-07-31)
DX: L89.153 Pressure ulcer of sacral region, stage 3 (principal); U07.1 COVID-19; N30.01 Acute cystitis with hematuria; Z16.24 Resistance to multiple antibiotics; J90 Pleural effusion, not elsewhere classified; R18.8 Other ascites; I13.0 Hypertensive heart and chronic kidney disease with heart failure and stage 1 through stage 4 chronic kidney disease, or unspecified chronic kidney disease; D64.9 Anemia, unspecified; I50.9 Heart failure, unspecified; D50.0 Iron deficiency anemia secondary to blood loss (chronic); L08.9 Local infection of the skin and subcutaneous tissue, unspecified; E83.42 Hypomagnesemia; E78.00 Pure hypercholesterolemia, unspecified; J44.9 Chronic obstructive pulmonary disease, unspecified; N18.9 Chronic kidney disease, unspecified; G89.29 Other chronic pain; M54.9 Dorsalgia, unspecified; M79.7 Fibromyalgia; F32.A Depression, unspecified; E11.22 Type 2 diabetes mellitus with diabetic chronic kidney disease; Z96.649 Presence of unspecified artificial hip joint; L89.322 Pressure ulcer of left buttock, stage 2; E03.9 Hypothyroidism, unspecified; Z95.5 Presence of coronary angioplasty implant and graft; Z90.49 Acquired absence of other specified parts of digestive tract; Z79.890 Hormone replacement therapy; Z79.82 Long term (current) use of aspirin; I25.2 Old myocardial infarction; Z79.899 Other long term (current) drug therapy; Z98.890 Other specified postprocedural states
CPT/HCPCS: 0240U; 36415; 74177; 80053; 80162; 80202; 81001; 82272; 82947; 83735; 83880; 85025; 85046; 86140; 87040; 87086; 87088; 87186; 94640; 97110-GP; 97161-GP; 97530-GP; 97597-GP; A9270-GY; J0696; J1940; J3370; J3475; J3490; J7050; J7620-GY; Q9967

== ENCOUNTER 2023-08-09 17:17 | Inpatient (IN) | payer MEDICARE ==
[2023-08-09] MEDS ORDERED: Iopamidol 755 Mg/ML 100 ML Bottle IVPUSH ONE (17:32)
[2023-08-09] MEDS ORDERED: Acetaminophen 325 MG Tab PO PRN ×2 (20:06→20:27)
[2023-08-09] MEDS ORDERED: Sodium Chloride 0.9% 10 ML Syringe FLUSH PRN (20:06)
[2023-08-09] MEDS ORDERED: Ondansetron 4 MG/2 ML SDV IV PRN (20:06)
[2023-08-09] MEDS ORDERED: Ondansetron 4 MG Tab.DIS PO PRN (20:06)
[2023-08-09] MEDS ORDERED: Polyethylene Glycol 3350 Powder 17 GM Packet PO PRN (20:06)
[2023-08-09] MEDS ORDERED: Albuterol/Ipratropium 3.0-0.5 MG/3 ML Neb Soln NEB PRN (20:27)
[2023-08-09] MEDS ORDERED: MAG HYDROX PO PRN (20:27)
[2023-08-09] MEDS ORDERED: Docusate Sodium 100 MG Cap PO PRN (20:27)
[2023-08-09] MEDS ORDERED: SIMETH PO PRN (20:27)
[2023-08-09] MEDS ORDERED: ALUMINUM HYD PO PRN (20:27)
[2023-08-09] MEDS ORDERED: Albuterol 6.7 GM Inhaler INH PRN (20:27)
[2023-08-09] MEDS: Furosemide 40 MG/4 ML VIAL IVPUSH SCH (21:06)
[2023-08-10] MEDS: Furosemide 40 MG/4 ML VIAL IVPUSH SCH ×2 (07:46→17:09)
[2023-08-10] MEDS: metFORMIN 500 MG Tab PO SCH ×2 (07:46→17:06)
[2023-08-10] MEDS: Aspirin 325 MG Tab.EC PO SCH (07:47)
[2023-08-10] MEDS: Lactobacillus Rhamnosus GG (Probiotic) Cap PO SCH (07:47)
[2023-08-10] MEDS: Metoprolol Succinate 25 MG Tab.ER PO SCH (07:47)
[2023-08-10] MEDS: predniSONE 20 MG Tab PO SCH (07:47)
[2023-08-10] MEDS: Beta-Carotene (Vitamin A) w/Vitamin C & E plus Minerals Tab PO SCH ×2 (07:48→19:43)
[2023-08-10] MEDS: Pregabalin 50 MG Cap PO SCH ×2 (07:48→19:44)
[2023-08-10] MEDS: Folic Acid 1 MG Tab PO SCH (07:48)
[2023-08-10] MEDS: Pantoprazole 40 MG Tab.CR PO SCH (07:48)
[2023-08-10] MEDS: Levothyroxine 50 MCG Tab PO SCH (07:49)
[2023-08-10] MEDS: Ferrous Sulfate 324 MG Tab.EC PO SCH (07:50)
[2023-08-10 07:54] LABS: BASOPHILS ABSOLUTE AUTO 0.05 10^3/uL (0.00-0.50); BASOPHILS PERCENT AUTO 0.8 % (0-1); EOSINOPHILS ABSOLUTE AUTO 0.09 10^3/uL (0.00-1.50); EOSINOPHILS PERCENT AUTO 1.5 % (0-6); HEMATOCRIT 23.3 % (37.0-47.0); IMMATURE GRAN ABSOLUTE AUTO 0.07 10^3/uL (0.00-0.49); IMMATURE GRAN PERCENT AUTO 1.2 % (0.0-4.9); LYMPHOCYTES PERCENT AUTO 18.5 % (24-44); MEAN CORPUSCULAR HEMOGLOBIN 29.5 pg (27.0-32.0); MEAN CORPUSCULAR HGB CONC 31.8 g/dL (32.0-36.0); MEAN CORPUSCULAR VOLUME 92.8 fL (83.0-97.0); MONOCYTES ABSOLUTE AUTO 0.35 10^3/uL (0.00-1.50); MONOCYTES PERCENT AUTO 5.9 % (0-10); NEUTROPHILS ABSOLUTE AUTO 4.27 x10^3/uL (1.80-8.00); NEUTROPHILS PERCENT AUTO 72.1 % (41-71); PLATELET COUNT,PLT 258 10^3/uL (150-400); RED BLOOD CELL COUNT 2.51 x10^6/uL (4.00-5.50); WHITE BLOOD CELL COUNT,WBC 5.9 10^3/uL (4.0-11.0)
[2023-08-10 07:58] LABS: ALBUMIN 2.1 g/dL (3.4-5.0); BILIRUBIN TOTAL 0.2 mg/dL (0.0-1.0); C-REACTIVE PROTEIN 0.64 mg/dL (<=0.30); CALCIUM 8.9 mg/dL (8.4-10.1); EST CRCL DRUG DOSING (CG) 47.6 mL/min; MAGNESIUM 1.7 mg/dL (1.8-2.4); POTASSIUM,K 3.7 mEq/L (3.5-5.0); PROTEIN TOTAL,TP 5.7 g/dL (6.4-8.2)
[2023-08-10 08:00] LABS: HEMOGLOBIN 7.4 g/dL (12.0-16.0)
[2023-08-10] MEDS ORDERED: Bumetanide 2.5 MG/10 ML MDV IVPUSH SCH (08:15)
[2023-08-10] MEDS ORDERED: Bumetanide 2.5 MG/10 ML MDV IVPUSH ONE (09:32)
[2023-08-10] MEDS ORDERED: Loratadine 10 MG Tab PO SCH (20:00)
[2023-08-10] MEDS ORDERED: Calcium Carbonate/Vitamin D3 1250 MG-5 MCG Tab PO SCH (20:00)
[2023-08-10] MEDS ORDERED: Mirtazapine 15 MG Tab PO SCH (20:00)
[2023-08-10] MEDS ORDERED: Rosuvastatin 10 MG Tab PO SCH (20:00)
[2023-08-10] MEDS ORDERED: Montelukast 10 MG Tab PO SCH (20:00)
[2023-08-11 07:32] LABS: BASOPHILS ABSOLUTE AUTO 0.05 10^3/uL (0.00-0.50); BASOPHILS PERCENT AUTO 0.8 % (0-1); EOSINOPHILS ABSOLUTE AUTO 0.17 10^3/uL (0.00-1.50); EOSINOPHILS PERCENT AUTO 2.8 % (0-6); HEMATOCRIT 24.8 % (37.0-47.0); IMMATURE GRAN ABSOLUTE AUTO 0.11 10^3/uL (0.00-0.49); IMMATURE GRAN PERCENT AUTO 1.8 % (0.0-4.9); LYMPHOCYTES ABSOLUTE AUTO 1.32 10^3/uL (0.60-5.00); LYMPHOCYTES PERCENT AUTO 21.8 % (24-44); MEAN CORPUSCULAR HEMOGLOBIN 29.7 pg (27.0-32.0); MEAN CORPUSCULAR HGB CONC 32.3 g/dL (32.0-36.0); MEAN CORPUSCULAR VOLUME 92.2 fL (83.0-97.0); MONOCYTES ABSOLUTE AUTO 0.36 10^3/uL (0.00-1.50); NEUTROPHILS ABSOLUTE AUTO 4.04 x10^3/uL (1.80-8.00); NEUTROPHILS PERCENT AUTO 66.8 % (41-71); PLATELET COUNT,PLT 241 10^3/uL (150-400); RED BLOOD CELL COUNT 2.69 x10^6/uL (4.00-5.50); WHITE BLOOD CELL COUNT,WBC 6.1 10^3/uL (4.0-11.0)
[2023-08-11] MEDS: Metoprolol Succinate 25 MG Tab.ER PO SCH (07:37)
[2023-08-11] MEDS: Lactobacillus Rhamnosus GG (Probiotic) Cap PO SCH (07:37)
[2023-08-11] MEDS: Aspirin 325 MG Tab.EC PO SCH (07:37)
[2023-08-11] MEDS: Beta-Carotene (Vitamin A) w/Vitamin C & E plus Minerals Tab PO SCH (07:38)
[2023-08-11] MEDS: predniSONE 20 MG Tab PO SCH (07:38)
[2023-08-11] MEDS: Ferrous Sulfate 324 MG Tab.EC PO SCH (07:39)
[2023-08-11] MEDS: Pantoprazole 40 MG Tab.CR PO SCH (07:39)
[2023-08-11] MEDS: metFORMIN 500 MG Tab PO SCH (07:39)
[2023-08-11] MEDS: Folic Acid 1 MG Tab PO SCH (07:40)
[2023-08-11] MEDS: Levothyroxine 50 MCG Tab PO SCH (07:40)
[2023-08-11] MEDS: Furosemide 40 MG/4 ML VIAL IVPUSH SCH (07:41)
[2023-08-11] MEDS: Pregabalin 50 MG Cap PO SCH (07:41)
[2023-08-11 08:19] LABS: ALBUMIN 2.2 g/dL (3.4-5.0); BILIRUBIN TOTAL 0.3 mg/dL (0.0-1.0); CALCIUM 9.3 mg/dL (8.4-10.1); CREATININE 0.9 mg/dL (0.6-1.0); EST CRCL DRUG DOSING (CG) 52.89 mL/min; MAGNESIUM 1.6 mg/dL (1.8-2.4); POTASSIUM,K 3.9 mEq/L (3.5-5.0); PROTEIN TOTAL,TP 5.7 g/dL (6.4-8.2)
[2023-08-11 11:32] LABS: INR 1.05 (0.92-1.18); PROTHROMBIN TIME 10.8 SEC (9.3-11.3); PTT,PARTIAL THROMBOPLSTIN TIME 22.4 SEC (20.0-30.0)
[2023-08-11 11:35] LABS: C-REACTIVE PROTEIN 0.34 mg/dL (<=0.30)
[2023-08-11] MEDS ORDERED: Magnesium Sulfate/Water 2 GM in Premix Bag 1 BAG IV ONE (12:00)
[2023-08-11 12:59] VITALS: BP 153/48; PULSE 83
== END 2023-08-11 13:39 | DRG 291 ==
LOC: CC.ED 17:17 → CC.MS 19:30 → UNDOADMIN 19:30 → CC.MS 19:48 → UNDODISIN 08-11 13:39
PROVIDERS: ADMIT Physician Assistant Medical; ATTEND Nurse Practitioner
DX: I13.0 Hypertensive heart and chronic kidney disease with heart failure and stage 1 through stage 4 chronic kidney disease, or unspecified chronic kidney disease (principal); I11.0 Hypertensive heart disease with heart failure; I50.23 Acute on chronic systolic (congestive) heart failure; D50.9 Iron deficiency anemia, unspecified; J90 Pleural effusion, not elsewhere classified; J44.9 Chronic obstructive pulmonary disease, unspecified; E11.9 Type 2 diabetes mellitus without complications; N18.9 Chronic kidney disease, unspecified; E83.42 Hypomagnesemia; F32.A Depression, unspecified; E11.22 Type 2 diabetes mellitus with diabetic chronic kidney disease; M19.90 Unspecified osteoarthritis, unspecified site; Z96.649 Presence of unspecified artificial hip joint; G89.29 Other chronic pain; M54.9 Dorsalgia, unspecified; Z88.8 Allergy status to other drugs, medicaments and biological substances; Z87.440 Personal history of urinary (tract) infections; Z87.01 Personal history of pneumonia (recurrent); Z86.16 Personal history of COVID-19; Z91.81 History of falling; Z91.040 Latex allergy status; I25.2 Old myocardial infarction; E03.9 Hypothyroidism, unspecified; Z79.4 Long term (current) use of insulin; Z90.49 Acquired absence of other specified parts of digestive tract; Z79.890 Hormone replacement therapy; E78.00 Pure hypercholesterolemia, unspecified; Z98.890 Other specified postprocedural states; M79.7 Fibromyalgia; Z79.82 Long term (current) use of aspirin; Z79.84 Long term (current) use of oral hypoglycemic drugs; Z79.899 Other long term (current) drug therapy; Z95.0 Presence of cardiac pacemaker; Z95.5 Presence of coronary angioplasty implant and graft
CPT/HCPCS: 36415; 71046; 71260; 74177; 80053; 83880; 85025; 86140; 99285; Q9967; 83735; 84484; 85610; 85730; 99223; 99233; 99239; A9270-GY; J1940; J3475; J3490; J7512

== ENCOUNTER 2024-06-23 16:32 | Observation (INO) | payer MEDICARE, OTHER ==
[2024-06-23] MEDS ORDERED: Sodium Chloride 0.9% 10 ML Syringe FLUSH PRN (16:47)
[2024-06-23] MEDS: Acetaminophen 325 MG Tab PO ONE (17:36)
[2024-06-23] MEDS: Sodium Chloride 0.9% 250 ML IV SCH (17:38)
[2024-06-23] MEDS: metFORMIN 500 MG Tab PO SCH (19:03)
[2024-06-23] MEDS: Rosuvastatin 10 MG Tab PO SCH (20:34)
[2024-06-23] MEDS: Mirtazapine 15 MG Tab PO SCH (20:35)
[2024-06-23] MEDS: Montelukast 10 MG Tab PO SCH (20:35)
[2024-06-23] MEDS: Furosemide 40 MG/4 ML VIAL IVPUSH ONE (21:09)
[2024-06-24] MEDS: Acetaminophen 325 MG Tab PO PRN (05:18)
[2024-06-24] MEDS: Furosemide 40 MG/4 ML VIAL ONE (05:21)
[2024-06-24] MEDS: Cyclobenzaprine 10 MG Tab PO PRN (07:27)
[2024-06-24] MEDS: Levothyroxine 50 MCG Tab PO SCH (07:43)
[2024-06-24] MEDS: Ferrous Sulfate 324 MG Tab.EC PO SCH (07:43)
[2024-06-24] MEDS: Pantoprazole 40 MG Tab.CR PO SCH (07:44)
[2024-06-24] MEDS: Metoprolol Succinate 25 MG Tab.ER PO SCH (07:44)
[2024-06-24] MEDS: Furosemide 20 MG Tab PO SCH (07:44)
[2024-06-24] MEDS ORDERED: Cyclobenzaprine 10 MG Tab PO SCH (08:00)
[2024-06-24 08:05] LABS: BASOPHILS ABSOLUTE AUTO 0.04 10^3/uL (0.00-0.50); BASOPHILS PERCENT AUTO 0.5 % (0-1); EOSINOPHILS ABSOLUTE AUTO 0.18 10^3/uL (0.00-1.50); EOSINOPHILS PERCENT AUTO 2.3 % (0-6); HEMOGLOBIN 8.2 g/dL (12.0-16.0); IMMATURE GRAN ABSOLUTE AUTO 0.01 10^3/uL (0.00-0.49); IMMATURE GRAN PERCENT AUTO 0.1 % (0.0-4.9); LYMPHOCYTES ABSOLUTE AUTO 0.82 10^3/uL (0.60-5.00); LYMPHOCYTES PERCENT AUTO 10.4 % (24-44); MEAN CORPUSCULAR HEMOGLOBIN 28.3 pg (27.0-32.0); MEAN CORPUSCULAR HGB CONC 31.5 g/dL (32.0-36.0); MEAN CORPUSCULAR VOLUME 89.7 fL (83.0-97.0); MONOCYTES ABSOLUTE AUTO 0.53 10^3/uL (0.00-1.50); MONOCYTES PERCENT AUTO 6.7 % (0-10); NEUTROPHILS ABSOLUTE AUTO 6.32 x10^3/uL (1.80-8.00); PLATELET COUNT,PLT 212 10^3/uL (150-400); WHITE BLOOD CELL COUNT,WBC 7.9 10^3/uL (4.0-11.0)
[2024-06-24 08:13] LABS: ALBUMIN 3.2 g/dL (3.4-5.0); BILIRUBIN TOTAL 0.7 mg/dL (0.0-1.0); C-REACTIVE PROTEIN 0.65 mg/dL (<=0.50); CALCIUM 9.7 mg/dL (8.4-10.1); CREATININE 1.3 mg/dL (0.6-1.0); EST CRCL DRUG DOSING (CG) 36.08 mL/min; POTASSIUM,K 3.8 mEq/L (3.5-5.0); PROTEIN TOTAL,TP 6.5 g/dL (6.4-8.2)
[2024-06-24 08:24] LABS: APPEARANCE,URINE SLIGHTLY CLOUDY (CLEAR); BILIRUBIN,URINE NEGATIVE (NEGATIVE); COLOR,URINE YELLOW (YELLOW); GLUCOSE,URINE NEGATIVE (NEGATIVE); KETONES,URINE NEGATIVE (NEGATIVE); LEUKOCYTE ESTERASE,URINE LARGE (NEGATIVE); NITRITE,URINE NEGATIVE (NEGATIVE); OCCULT BLOOD,URINE TRACE-INTACT (NEGATIVE); PROTEIN,URINE 30 mg/dL (NEGATIVE); UROBILINOGEN,URINE 0.2 EU/dL (0.2-1.0)
[2024-06-24 08:33] LABS: BACTERIA,URINE MANY /HPF (NOT SEEN); RBC,URINE 50-75 /HPF (0-5); WBC,URINE 75-100 /HPF (0-5)
[2024-06-24] MEDS ORDERED: Ciprofloxacin 500 MG Tab PO SCH (10:15)
[2024-06-24] MEDS: Iopamidol 755 Mg/ML 100 ML Bottle IVPUSH ONE (10:50)
[2024-06-24] MEDS: Cyanocobalamin (Vitamin B12) 1,000 MCG Tab PO SCH (12:07)
[2024-06-24] MEDS: Levofloxacin 500 MG Tab PO SCH (12:07)
[2024-06-24] MEDS: Beta-Carotene (Vitamin A) w/Vitamin C & E plus Minerals Tab PO SCH (19:43)
[2024-06-24] MEDS: Calcium Carbonate/Vitamin D3 1250 MG-5 MCG Tab PO SCH (19:43)
[2024-06-24] MEDS: Loratadine 10 MG Tab PO SCH (19:44)
[2024-06-25] MEDS: Aspirin 81 MG Tab.EC PO SCH (07:50)
[2024-06-25] MEDS: Lactobacillus Rhamnosus GG (Probiotic) Cap PO SCH (07:55)
[2024-06-25 07:59] VITALS: BP 143/50; PULSE 61
[2024-06-25 08:52] LABS: BASOPHILS ABSOLUTE AUTO 0.02 10^3/uL (0.00-0.50); BASOPHILS PERCENT AUTO 0.3 % (0-1); EOSINOPHILS ABSOLUTE AUTO 0.27 10^3/uL (0.00-1.50); EOSINOPHILS PERCENT AUTO 4.1 % (0-6); HEMATOCRIT 27.2 % (37.0-47.0); HEMOGLOBIN 8.3 g/dL (12.0-16.0); IMMATURE GRAN ABSOLUTE AUTO 0.01 10^3/uL (0.00-0.49); IMMATURE GRAN PERCENT AUTO 0.2 % (0.0-4.9); LYMPHOCYTES ABSOLUTE AUTO 1.03 10^3/uL (0.60-5.00); LYMPHOCYTES PERCENT AUTO 15.7 % (24-44); MEAN CORPUSCULAR HEMOGLOBIN 27.6 pg (27.0-32.0); MEAN CORPUSCULAR HGB CONC 30.5 g/dL (32.0-36.0); MEAN CORPUSCULAR VOLUME 90.4 fL (83.0-97.0); MONOCYTES ABSOLUTE AUTO 0.41 10^3/uL (0.00-1.50); MONOCYTES PERCENT AUTO 6.3 % (0-10); NEUTROPHILS PERCENT AUTO 73.4 % (41-71); PLATELET COUNT,PLT 191 10^3/uL (150-400); RED BLOOD CELL COUNT 3.01 x10^6/uL (4.00-5.50); WHITE BLOOD CELL COUNT,WBC 6.5 10^3/uL (4.0-11.0)
[2024-06-25 09:18] LABS: BILIRUBIN TOTAL 0.8 mg/dL (0.0-1.0); CALCIUM 9.8 mg/dL (8.4-10.1); CREATININE 1.2 mg/dL (0.6-1.0); EST CRCL DRUG DOSING (CG) 39.09 mL/min; PROTEIN TOTAL,TP 6.3 g/dL (6.4-8.2)
== END 2024-06-25 12:12 | disposition home or self-care (01) ==
LOC: CC.MS 16:32 → UNDOADMOB 16:32 → CC.MS 17:03
PROVIDERS: ADMIT Nurse Practitioner Family; ATTEND Nurse Practitioner Family
DX: D64.9 Anemia, unspecified (principal); N30.01 Acute cystitis with hematuria; R23.1 Pallor; R53.1 Weakness; I10 Essential (primary) hypertension; J44.9 Chronic obstructive pulmonary disease, unspecified; E11.9 Type 2 diabetes mellitus without complications; E03.9 Hypothyroidism, unspecified; E78.00 Pure hypercholesterolemia, unspecified; Z79.890 Hormone replacement therapy; Z79.899 Other long term (current) drug therapy; R07.89 Other chest pain; R06.2 Wheezing; J90 Pleural effusion, not elsewhere classified; J98.11 Atelectasis
CPT/HCPCS: 36415; 36430; 71046; 71275; 74177; 80048; 80053; 81001; 82272; 82947; 85025; 86140; 86850; 86900; 86901; 86920; 86922; 87086; 87088; 87186; 96374; 97161-GP; A9270-GY; G0378; J1940; J7030; P9016; Q9967